=== PATIENT | female | born 1955 | race Caucasian/White ===

== ENCOUNTER → 2016-08-10 | Day surgery (SDC) | payer BC ==
[2016-08-09 08:40] VITALS: BMI 19.0
[~2016-08-10] VITALS: Ht 154.9 cm; Wt 45.5 kg
[~2016-08-10] MED LIST: ALOS1TAB PO; ASPITAB67 PO; BISM262C5 PO; BUDE1TAB PO; CALC600T9 PO; CHOL100010 PO; COLE1TAB PO; CYCL0.052 OPB; DIPH-416 PO; FSMD/70 PO; IMD/2 PO; METH1TAB81 PO; MULT-506 PO; SALI1SPR3 NAE; SYN100 PO
[2016-08-10 11:58] VITALS: Ht 154.9 cm; Wt 45.5 kg
[2016-08-10 14:59] VITALS: BP 170/99; PULSE 77; TEMP 36.6; O2SAT 98
--- NOTE | 2016-08-13 16:31 | OPERATIVE REPORT ---
DATE OF OPERATION: 08/10/2016 PROCEDURE: Hydrogen breath test for small bowel bacterial overgrowth. INDICATION: Weight loss and possible small bowel bacterial overgrowth. DESCRIPTION OF PROCEDURE: The patient was brought to medical treatment unit where she was given 10 grams of lactulose. The patient had a baseline hydrogen level which was elevated at 42. Hydrogen levels were performed at 20 minute intervals for 3 hours. Her hydrogen levels went up steadily and peaked at 160 minutes at 156, at 180 minutes they were starting to decline at 139, this is a significant elevation over baseline and in combination with the elevated baseline is indicative of small bowel bacterial overgrowth. IMPRESSION: Positive hydrogen breath test for small bowel bacterial overgrowth. I attest to the content of the Intraoperative Record and any orders documented therein. Any exceptio ns are noted below.
== END | disposition home or self-care (01) ==
LOC: C.GI 11:25
PROVIDERS: ATTEND Internal Medicine Gastroenterology
DX: R63.4 Abnormal weight loss (principal); R19.8 Other specified symptoms and signs involving the digestive system and abdomen

== ENCOUNTER → 2016-11-15 | Outpatient (CLI) | payer BC ==
[~2016-11-15] MED LIST changes: -ALOS1TAB PO; +ALOS1TAB15 PO
== END | disposition home or self-care (01) ==
LOC: C.PAPS 16:40
PROVIDERS: ATTEND Obstetrics & Gynecology
DX: Z01.419 Encounter for gynecological examination (general) (routine) without abnormal findings (principal)

== ENCOUNTER → 2017-02-04 | Outpatient (CLI) | payer BC ==
[~2017-02-04] MED LIST changes: +ALOS1TAB PO; -ALOS1TAB15 PO
--- NOTE | 2017-02-07 14:45 | MAMMOGRAPHY REPORT ---
BILATERAL DIGITAL SCREENING MAMMOGRAM TOMOSYNTHESIS WITH CAD: 02/04/2017 CLINICAL HISTORY: Routine screening. TECHNIQUE: Breast tomosynthesis in addition to standard 2D mammography was performed. Current study was also evaluated with a Computer Aided Detection (CAD) system. COMPARISON: Comparison is made to exams dated: 01/28/2016 mammogram, 01/21/2015 mammogram, 01/15/2014 mammogram, 01/05/2013 mammogram, and 11/24/2011 mammogram - [facility]. BREAST COMPOSITION: The tissue of both breasts is heterogeneously dense, which may obscure small mas ses. FINDINGS: No suspicious masses, calcifications, or areas of architectural distortion are noted in ei ther breast. There has been no significant interval change compared to prior exams. IMPRESSION: ACR BI-RADS CATEGORY 1: NEGATIVE There is no mammographic evidence of malignancy. A 1 year screening mammogram is recommended. The pa tient will receive written notification of the results. Approximately 10% of breast cancers are not detected with mammography. A negative mammographic report should not delay biopsy if a clinically suggestive mass is present. Aminata Paz M.D. ah/:02/04/2017 16:31:32 Data Communications Technician: Tony HAYNES(R)(M), [facility] letter sent: Normal 1/2 BI-RADS Code: ACR BI-RADS Category 1: Negative
== END | disposition home or self-care (01) ==
LOC: C.MAMM 15:41
PROVIDERS: ATTEND Family Medicine
DX: Z12.31 Encounter for screening mammogram for malignant neoplasm of breast (principal)

== ENCOUNTER 2020-09-17 21:30 | Inpatient (IN) ==
[2020-09-17 23:10] LABS: Hemoglobin 11.8 g/dL (12.0-16.0); Mean Corpuscular Hemoglobin 30.4 pg (25-34); Mean Corpuscular Hgb Conc 31.9 g/dL (32-36); Mean Corpuscular Volume 95.4 fL (80-100); Mean Platelet Volume 9.5 fL (7.4-10.4); Platelet Count 350 K/uL (130-400); RDW Coefficient of Variation 13.6 % (11.5-14.5); RDW Standard Deviation 47.2 fL (36.4-46.3); Red Blood Count 3.88 M/uL (4.2-5.4); White Blood Count 10.18 K/uL (4.8-10.8)
[2020-09-17 23:26] LABS: INR 0.9 (0.9-1.1); Partial Thromboplastin Ratio 0.8; Partial Thromboplastin Time 20.8 Seconds (21.0-31.0); Prothrombin Time 9.6 Seconds (9.0-12.0)
[2020-09-17 23:29] LABS: Alanine Aminotransferase 23 U/L (12-78); Albumin Level 3.2 gm/dl (3.4-5.0); Aspartate Aminotransferase 19 U/L (15-37); BUN Creatinine Ratio 23.3 (10-20); Blood Urea Nitrogen 16 mg/dl (7-18); C Reactive Protein < 0.29 mg/dl (0-0.29); Calcium 9.1 mg/dl (8.5-10.1); Carbon Dioxide 29 mmol/L (21-32); Chloride 111 mmol/L (98-107); Creatinine Clr Calc Pharmacy 63.1 ml/min; Est GFR (African American) 107.1 ml/min; Est GFR (Non-African American) 92.4 ml/min; Glucose 86 mg/dl (70-99); Magnesium 2.4 mg/dl (1.8-2.4); Potassium 3.7 mmol/L (3.5-5.1); Sodium 143 mmol/L (136-145)
[2020-09-17 23:33] LABS: Albumin Globulin Ratio 1.1 (0.9-2); Alkaline Phosphatase 44 U/L (45-117); Bilirubin,Total 0.2 mg/dl (0.2-1); NT Pro B Type Natriuretic Pept 84 pg/ml (0-900); Total Protein 6.2 gm/dl (6.4-8.2)
[2020-09-17 23:53] LABS: ALC (manual) 2.47 K/uL (1.2-3.4); ANC (manual) 7.27 K/uL (1.4-6.5); Lymphocytes # (manual) 2.47 K/uL (1.2-3.4); Lymphocytes % (manual) 24.3 %; Monocytes # (manual) 0.44 K/uL (0.11-0.59); Monocytes % (manual) 4.3 %; Neutrophils # (manual) 7.27 K/uL (1.4-6.5); Neutrophils % (manual) 71.4 %; RBC Morphology Unremarkable
[2020-09-18 00:44] LABS: Troponin I < 0.015 ng/ml (0-0.045)
[2020-09-18] MEDS ORDERED: cefTRIAXone SODIUM 2,000 MG/70 ML BAG IV STA (00:58)
[2020-09-18] MEDS ORDERED: DOXYCYCLINE HYCLATE 100 MG in DEXTROSE 5% 100 ML IV STA (01:23)
[2020-09-18 01:46] LABS: Appearance Urine Clear (Clear); Bilirubin Urine Negative (Negative); Blood Urine Negative (Negative); Color Urine Yellow; Glucose Urine UA Negative (Negative); Ketones Urine Negative (Negative); Leukocyte Esterase Urine Negative (Negative); Nitrite Urine Negative (Negative); Protein Urine Negative (Negative); Specific Gravity Urine 1.005 (1.000-1.030); Urobilinogen Urine Negative (Negative); pH Urine 6.5 (4.5-7.5)
--- NOTE | 2020-09-18 01:54 | Emergency Department Note ---
Impression & Plan Cellulitis of both lower extremities, Vasculitis, Lymphedema, Deep venous thrombosis (DVT) of right peroneal vein ED Provider Note NAME: KASSANDRA ALBERTO AGE: 65 SEX: F ARRIVES VIA: Walk-In INFORMANT: Patient, ED PROVIDER(S): Jani Andrews MD CHIEF COMPLAINT: Leg swelling, pain. PLAN: Disposition: Admit MEDICAL DECISION MAKING: The patient is a pleasant 65-year-old woman with a past medical history of vasculitis, Sjogren's syndrome, hypothyroidism, polyarthritis, lymphedema who presents to the emergency department with worsening bilateral lower extremity edema, redness and pain over the past couple of weeks where she was concerned that may be a flare of her vasculitis and so she reports contacting her customer pricing manager to increased her steroids but now continues to have worsening pain and swelling. She has any fevers, chills, cough, congestion, GI or symptoms. She reports she has been managing a chronic wound with the wound clinic which does appear better than it has in the past but the redness and pain has been worsening. On arrival patient is no acute distress, afebrile stable vital signs. She has 2+ bilateral lower extremity pitting edema with erythema, warmth and tenderness bilaterally. She does have palpable pedal pulses. There is a right lateral pretibial wound without any active discharge. EKG without overt acute ischemia. CXR without acute cardiopulmonary process per my preliminary review. WBC within normal limits. H/H 11.8/37 without prior values for comparison. Platelets within normal limits. ESR and CRP are not elevated. History without metabolic acidosis. LFTs are unremarkable. Upon negative/undetectable. BNP within normal limits. Procalcitonin is not elevated. UA without convincing evidence of infection. COVID-19 PCR was negative. Bilateral lower extremity ultrasound was performed and per preliminary stat rad report shows occlusive thrombus of the right peroneal vein. The patient's symptoms are bilateral with erythema edema and pain suspect symptoms likely related to cellulitis at this time. Given no elevation in inflammatory markers unclear if flare of vasculitis is involved. Given the patient is on chronic steroids and with degree of immunosuppression, reasonable to admit the patient for IV antibiotics. CTX ordered. Patient is in agreement with this plan. Case was discussed with Dr. Bill, [facility] hospitalist, who will evaluate the patient for admission. Anticoagulation per admitting team. Triage Nursing notes reviewed and agree them. Prior medical records reviewed Vital Signs: reviewed and remarkable for no significant abnormalities Differential diagnosis: Cellulitis, abscess, MRSA infection, DVT, necrotizing fasciitis, dermatitis, drug eruption, allergic reaction, as well as other pathologies. ER treatment provided: See below. Diagnostics interpreted by me: ECG: NSR, 81 bpm, no ectopy, no overt ST elevation or depression. Cardiac Monitoring: An order for continuous cardiac monitoring was placed and demonstrated NSR, 81 bpm, no ectopy. Laboratory studies: See below Imaging studies: See below CXR: No acute cardiopulmonary process per my preliminary review. [facility] Preliminary Findings Only See Final Report For Complete Findings US VENOUS BILATERAL LOWER EXTREMITIES: Occlusive deep vein thrombosis of the right peroneal vein. No deep thrombosis of the left lower extremity. Radiologist: Faye Malagon MD Study ready at 00:07 and initial results transmitted at 00:15 Consultation(s): Case was discussed with Dr. Bill, [facility] hospitalist, who will evaluate the patient for admission. HPI: The patient is a pleasant 65-year-old woman with a past medical history of vasculitis, Sjogren's syndrome, hypothyroidism, polyarthritis, lymphedema who presents to the emergency department with worsening bilateral lower extremity edema, redness and pain over the past couple of weeks where she was concerned that may be a flare of her vasculitis and so she reports contacting her customer pricing manager to increased her steroids but now continues to have worsening pain and swelling. She has any fevers, chills, cough, congestion, GI or symptoms. She reports she has been managing a chronic wound with the wound clinic which does appear better than it has in the past but the redness and pain has been worsening. ROS: See above HPI for pertinent positives & negatives. A total of 10 systems reviewed and were otherwise negative. PAST MEDICAL HISTORY:See Below PAST SURGICAL HISTORY:See Below FAMILY HISTORY:See Below SOCIAL HISTORY:See Below HOME MEDICATIONS:See Below ALLERGIES:See Below VITALS:See Below PHYSICAL EXAMINATION: GENERAL: Awake, alert, fatigued-appearing, in no distress HENT: Normocephalic, atraumatic. Oropharynx with dry mucous membranes and otherwise unremarkable. EYES: Normal conjunctiva. Sclera non-icteric. NECK: Supple. No nuchal rigidity. FROM. No JVD. RESPIRATORY: Clear to auscultation. CARDIAC: Regular rate, normal rhythm. Extremities warm and well perfused. Pulses equal. ABDOMEN: Soft, non-distended. No tenderness to palpation. No rebound or guarding. No masses. RECTAL: Deferred. MUSCULOSKELETAL: Chest examination reveals no tenderness. The back is sym metrical on inspection without obvious abnormality. There is no CVA tenderness to palpation. No joint edema. LOWER EXTREMITIES: 2+ bilateral lower extremity pitting edema with erythema, warmth and tenderness bilaterally. She does have palpable pedal pulses. There is a right lateral pretibial wound without any active discharge. NEURO: Normal sensorium. No sensory or motor deficits noted. SKIN: No rash or jaundice noted. Jani Andrews MD Past Med/Surg History Medical History Colitis Hypothyroidism Migraine headache Osteopenia Polyarthritis Sjogrens syndrome Vasculitis Surgical History H/O detached retina repair History of laparoscopy Hx of cataract surgery both eyes Hx of dilation and curettage Hx of wisdom tooth extraction Family History Mother Rheumatic heart disease Bacterial endocarditis Father Gout Social History Smoking Status: Former smoker Second Hand Exposure: No; Do You Dip or Chew Tobacco: No; Tobacco Cessation Education Requested by Patient: No Hx Alcohol Use: No Hx Substance Use: No Preferred Language: Palestinian Communication Ability: Effective Lube Attendant Required: No Beliefs That Will Affect Care: None Current Living Situation: Spouse Current Living Situation Comment: Lives at home with Other Information That Helps Us Care for You: No Feels Safe at Home: Yes Safety Concerns: Feels Safe At This Time Assistive Devices: Glasses Assistive Devices Comment: glasses are at home Allergies Allergies Allergy/AdvReac Type Severity Reaction Status Date / Time amoxicillin [From Augmentin] AdvReac Intermediate Vomiting Verified 09/18/20 04 :38 clavulanic acid AdvReac Intermediate Vomiting Verified 09/18/20 04:38 [From Augmentin] sulfamethoxazole AdvReac Intermediate NAUSEA/VOMI Verified 09/18/20 04:38 TING trimethoprim AdvReac Intermediate NAUSEA/VOMI Verified 09/18/20 04:38 TING cephalexin [From Keflex] AdvReac Mild Nausea Verified 09/18/20 04:38 Home Meds Home Medications Medication Instructions Recorded Confirmed cholecalciferol (vitamin D3) 25 1,000 units PO DAILY 11/16/17 09/17/20 mcg (1,000 unit) capsule cyclosporine 0.05 % eye drops 1 drops OP Q12H 11/16/17 09/17/20 alosetron 1 mg tablet 1 mg PO BID tab 11/13/18 09/17/20 edtzzvb-mijjqzodcsalp-apogljwy 250 2 tab PO Q6H PRN 11/13/18 09/17/20 mg-250 mg-65 mg tablet methylprednisolone 4 mg tablet 4 mg PO DAILY tab 11/13/18 09/17/20 budesonide 9 mg tablet,delayed and 9 mg PO DAILY 11/22/18 09/17/20 extended release calcium carbonate 600 mg (1,500 1 tab PO BID tab 11/22/18 09/17/20 mg)-vitamin D3 200 unit tablet diphenoxylate-atropine 2.5 1 tab PO TID PRN tab 11/22/18 09/17/20 mg-0.025 mg tablet colestipol 1 gram tablet 1 gm PO TID tab 12/22/18 09/17/20 denosumab 60 mg/mL subcutaneous 60 mg SQ .COMPLEX ml 12/22/18 09/17/20 syringe loperamide 2 mg capsule 2 mg PO BID cap 12/22/18 09/17/20 lisinopril 20 mg tablet 20 mg PO DAILY 04/10/20 09/17/20 bismuth subsalicylate 262 mg tablet 2 tab PO BID tab 07/01/20 09/17/20 simethicone 125 mg capsule 125 mg PO DIRECTED PRN cap 07/01/20 09/17/20 ascorbic acid (vitamin C) [Vitamin 0 mg PO DAILY 09/17/20 09/17/20 C] vitamin A 0 unit PO DAILY 09/17/20 09/17/20 zinc 0 mg PO DAILY 09/17/20 09/17/20 Previous Rx's Medication Instructions Recorded Synthroid 75 mcg tablet 75 mcg PO .COMPLEX #30 tab NS 07/23/20 Results & Data (ED) Vital Signs Vital Signs - 24 hr 09/17/20 21:31 09/17/20 22:13 09/17/20 22:27 Temperature 36.3 C L Temperature Source Temporal Artery Scan Pulse Rate 106 H 85 85 Pulse Rate from SpO2 Sensor 90 87 Respiratory Rate 18 20 18 Respiratory Effort / Characteristics Non-Labored Respiratory Depth Normal Blood Pressure 169/89 H 156/86 H Blood Pressure Mean 115 109 Pulse Oximetry 98 99 100 Oxygen Delivery Method Sepsis Recent Fever Within 48 Hours No Sepsis New/Unexplained Change in Mental Status No Sepsis Action Taken by Nursing No Action Required 09/17/20 22:30 09/17/20 22:48 09/17/20 23:00 Temperature Temperature Source Pulse Rate 82 88 Pulse Rate from SpO2 Sensor 83 Respiratory Rate 21 21 Respiratory Effort / Characteristics Non-Labored Respiratory Depth Blood Pressure 149/89 H 150/84 H Blood Pressure Mean 109 106 Pulse Oximetry 98 Oxygen Delivery Method Room Air Sepsis Recent Fever Within 48 Hours Sepsis New/Unexplained Change in Mental Status Sepsis Action Taken by Nursing 09/17/20 23:54 09/18/20 00:00 09/18/20 00:30 Temperature Temperature Source Pulse Rate 81 77 74 Pulse Rate from SpO2 Sensor Respiratory Rate 18 23 15 Respiratory Effort / Characteristics Respiratory Depth Blood Pressure 130/87 126/85 Blood Pressure Mean 101 98 Pulse Oximetry Oxygen Delivery Method Sepsis Recent Fever Within 48 Hours Sepsis New/Unexplained Change in Mental Status Sepsis Action Taken by Nursing 09/18/20 01:00 09/18/20 01:42 09/18/20 02:00 Temperature Temperature Source Pulse Rate 73 73 77 Pulse Rate from SpO2 Sensor 72 75 Respiratory Rate 24 15 21 Respiratory Effort / Characteristics Respiratory Depth Blood Pressure 132/81 175/94 H 157/97 H Blood Pressure Mean 98 121 117 Pulse Oximetry 100 99 Oxygen Delivery Method Sepsis Recent Fever Within 48 Hours Sepsis New/Unexplained Change in Mental Status Sepsis Action Taken by Nursing Laboratory Data Attestation: I reviewed the patient's lab results. Result diagrams: 09/17/20 22:59 09/17/20 22:59 Lab Results 09/17/20 09/17/20 09/17/20 Range/Units 22:59 22:59 22:59 WBC 10.18 (4.8-10.8) K/uL RBC 3.88 L (4.2-5.4) M/uL Hgb 11.8 L (12.0-16.0) g/dL Hct 37.0 (37-47) % MCV 95.4 (80-100) fL MCH 30.4 (25-34) pg MCHC 31.9 L (32-36) g/dL RDW Std Deviation 47.2 H (36.4-46.3) fL RDW Coeff of Jovany 13.6 (11.5-14.5) % Plt Count 350 (130-400) K/uL MPV 9.5 (7.4-10.4) fL Neutrophils % (Manual) 71.4 % Lymphocytes % (Manual) 24.3 % Monocytes % (Manual) 4.3 % Neutrophils # (Manual) 7.27 H (1.4-6.5) K/uL Total Absolute Neuts 7.27 H (1.4-6.5) K/uL Lymphocytes # (Manual) 2.47 (1.2-3.4) K/uL Total Abs Lymphocytes 2.47 (1.2-3.4) K/uL Monocytes # (Manual) 0.44 (0.11-0.59) K/uL RBC Morphology Unremarkable ESR 8 (0-30) mm/hr PT 9.6 (9.0-12.0) Seconds INR 0.9 (0.9-1.1) APTT 20.8 L (21.0-31.0) Seconds PTT Ratio 0.8 Sodium (136-145) mmol/L Potassium (3.5-5.1) mmol/L Chloride (98-107) mmol/L Carbon Dioxide (21-32) mmol/L Anion Gap (3-11) BUN (7-18) mg/dl Creatinine (0.6-1.2) mg/dl Est Cr Clr Drug Dosing ml/min Est GFR ( Amer) ml/min Est GFR (Non-Af Amer) ml/min BUN/Creatinine Ratio (10-20) Glucose (70-99) mg/dl Lactate (0.4-2.0) mmol/L Calcium (8.5-10.1) mg/dl Magnesium (1.8-2.4) mg/dl Total Bilirubin (0.2-1) mg/dl AST (15-37) U/L ALT (12-78) U/L Alkaline Phosphatase (45-117) U/L Troponin I (0-0.045) ng/ml C-Reactive Protein (0-0.29) mg/dl NT-Pro-B Natriuret Pep (0-900) pg/ml Total Protein (6.4-8.2) gm/dl Albumin (3.4-5.0) gm/dl Globulin (2.5-4.0) gm/dl Albumin/Globulin Ratio (0.9-2) Procalcitonin (0-0.5) ng/ml TSH (0.300-4.500) uIu/ml Urine Color Urine Appearance (Clear) Urine pH (4.5-7.5) Ur Specific [place] (1.000-1.030) Urine Protein (Negative) Urine Glucose (UA) (Negative) Urine Ketones (Negative) Urine Blood (Negative) Urine Nitrite (Negative) Urine Bilirubin (Negative) Urine Urobilinogen (Negative) Ur Leukocyte Esterase (Negative) COVID-19 Eval Order SARS-CoV-2 (PCR) (Negative) 09/17/20 09/17/20 09/17/20 Range/Units 22:59 22:59 22:59 WBC (4.8-10.8) K/uL RBC (4.2-5.4) M/uL Hgb (12.0-16.0) g/dL Hct (37-47) % MCV (80-100) fL MCH (25-34) pg MCHC (32-36) g/dL RDW Std Deviation (36.4-46.3) fL RDW Coeff of Jovany (11.5-14.5) % Plt Count (130-400) K/uL MPV (7.4-10.4) fL Neutrophils % (Manual) % Lymphocytes % (Manual) % Monocytes % (Manual) % Neutrophils # (Manual) (1.4-6.5) K/uL Total Absolute Neuts (1.4-6.5) K/uL Lymphocytes # (Manual) (1.2-3.4) K/uL Total Abs Lymphocytes (1.2-3.4) K/uL Monocytes # (Manual) (0.11-0.59) K/uL RBC Morphology ESR (0-30) mm/hr PT (9.0-12.0) Seconds INR (0.9-1.1) APTT (21.0-31.0) Seconds PTT Ratio Sodium 143 (136-145) mmol/L Potassium 3.7 (3.5-5.1) mmol/L Chloride 111 H (98-107) mmol/L Carbon Dioxide 29 (21-32) mmol/L Anion Gap 3.0 (3-11) BUN 16 (7-18) mg/dl Creatinine 0.68 (0.6-1.2) mg/dl Est Cr Clr Drug Dosing 63.1 ml/min Est GFR ( Amer) 107.1 ml/min Est GFR (Non-Af Amer) 92.4 ml/min BUN/Creatinine Ratio 23.3 H (10-20) Glucose 86 (70-99) mg/dl Lactate 1.5 (0.4-2.0) mmol/L Calcium 9.1 (8.5-10.1) mg/dl Magnesium 2.4 (1.8-2.4) mg/dl Total Bilirubin 0.2 (0.2-1) mg/dl AST 19 (15-37) U/L ALT 23 (12-78) U/L Alkaline Phosphatase 44 L (45-117) U/L Troponin I < 0.015 (0-0.045) ng/ml C-Reactive Protein < 0.29 (0-0.29) mg/dl NT-Pro-B Natriuret Pep 84 (0-900) pg/ml Total Protein 6.2 L (6.4-8.2) gm/dl Albumin 3.2 L (3.4-5.0) gm/dl Globulin 3.0 (2.5-4.0) gm/dl Albumin/Globulin Ratio 1.1 (0.9-2) Procalcitonin < 0.05 (0-0.5) ng/ml TSH 1.280 (0.300-4.500) uIu/ml Urine Color Urine Appearance (Clear) Urine pH (4.5-7.5) Ur Specific [place] (1.000-1.030) Urine Protein (Negative) Urine Glucose (UA) (Negative) Urine Ketones (Negative) Urine Blood (Negative) Urine Nitrite (Negative) Urine Bilirubin (Negative) Urine Urobilinogen (Negative) Ur Leukocyte Esterase (Negative) COVID-19 Eval Order SARS-CoV-2 (PCR) (Negative) 09/17/20 09/17/20 09/18/20 Range/Units 23:10 23:10 01:35 WBC (4.8-10.8) K/uL RBC (4.2-5.4) M/uL Hgb (12.0-16.0) g/dL Hct (37-47) % MCV (80-100) fL MCH (25-34) pg MCHC (32-36) g/dL RDW Std Deviation (36.4-46.3) fL RDW Coeff of Jovany (11.5-14.5) % Plt Count (130-400) K/uL MPV (7.4-10.4) fL Neutrophils % (Manual) % Lymphocytes % (Manual) % Monocytes % (Manual) % Neutrophils # (Manual) (1.4-6.5) K/uL Total Absolute Neuts (1.4-6.5) K/uL Lymphocytes # (Manual) (1.2-3.4) K/uL Total Abs Lymphocytes (1.2-3.4) K/uL Monocytes # (Manual) (0.11-0.59) K/uL RBC Morphology ESR (0-30) mm/hr PT (9.0-12.0) Seconds INR (0.9-1.1) APTT (21.0-31.0) Seconds PTT Ratio Sodium (136-145) mmol/L Potassium (3.5-5.1) mmol/L Chloride (98-107) mmol/L Carbon Dioxide (21-32) mmol/L Anion Gap (3-11) BUN (7-18) mg/dl Creatinine (0.6-1.2) mg/dl Est Cr Clr Drug Dosing ml/min Est GFR ( Amer) ml/min Est GFR (Non-Af Amer) ml/min BUN/Creatinine Ratio (10-20) Glucose (70-99) mg/dl Lactate (0.4-2.0) mmol/L Calcium (8.5-10.1) mg/dl Magnesium (1.8-2.4) mg/dl Total Bilirubin (0.2-1) mg/dl AST (15-37) U/L ALT (12-78) U/L Alkaline Phosphatase (45-117) U/L Troponin I (0-0.045) ng/ml C-Reactive Protein (0-0.29) mg/dl NT-Pro-B Natriuret Pep (0-900) pg/ml Total Protein (6.4-8.2) gm/dl Albumin (3.4-5.0) gm/dl Globulin (2.5-4.0) gm/dl Albumin/Globulin Ratio (0.9-2) Procalcitonin (0-0.5) ng/ml TSH (0.300-4.500) uIu/ml Urine Color Yellow Urine Appearance Clear (Clear) Urine pH 6.5 (4.5-7.5) Ur Specific [place] 1.005 (1.000-1.030) Urine Protein Negative (Negative) Urine Glucose (UA) Negative (Negative) Urine Ketones Negative (Negative) Urine Blood Negative (Negative) Urine Nitrite Negative (Negative) Urine Bilirubin Negative (Negative) Urine Urobilinogen Negative (Negative) Ur Leukocyte Esterase Negative (Negative) COVID-19 Eval Order Covid19 at [facility] SARS-CoV-2 (PCR) NEGATIVE (Negative) Administered Medications Discontinued Medications Enoxaparin Sodium (Enoxaparin Inj 60 Mg/0.6 Ml Syr) 50 mg SQ NOW STA Stop: 09/18/20 02:17 Last Admin: 09/18/20 02:39 Dose: 50 mg Documented by: [id number] Ceftriaxone Sodium (Rocephin) 2,000 mg in 70 mls @ 140 mls/hr IV NOW STA Stop: 09/18/20 01:27 Last Admin: 09/18/20 02:39 Dose: Not Given Documented by: [id number] Doxycycline Hyclate 100 mg/ (Dextrose) 110 mls @ 50 mls/hr IV NOW STA Stop: 09/18/20 03:34 Last Infusion: 09/18/20 04:00 Dose: 0 mls/hr Documented by: [id number] Admin: 09/18/20 01:40 Dose: 50 mls/hr Documented by: [id number] Lisinopril (Lisinopril 20 Mg Tab) 20 mg PO NOW STA Stop: 09/18/20 02:08 Last Admin: 09/18/20 02:43 Dose: 20 mg Documented by: [id number] Discharge Plan Visit Data Chief Complaint: Swelling/Edema to Extremity Stated Complaint: SWELLING IN BOTH LEGS, SWOLLEN ANKLE RIGHT ED Provider: Jani Andrews Discharge Problem: Cellulitis of both lower extremities, Vasculitis, Lymphedema, Deep venous thrombosis (DVT) of right peroneal vein Patient Disposition: Admitted As Inpatient Discharge Instructions Interventions: ED Discharge Assessment Last Done: 09/18/20 02:55 Discharge Problem: Deep venous thrombosis (DVT) of right peroneal vein Qualifiers: Chronicity: acute Qualified Code(s): I82.451 - Acute embolism and thrombosis of right peroneal vein
[2020-09-18] MEDS ORDERED: lisinopril 20 MG TAB PO STA (02:07)
--- NOTE | 2020-09-18 02:09 | History & Physical Report ---
Date of Service September 18, 2020 Assessment & Plan (1) Localized swelling of both lower legs: Right greater than the left Multifactorial : RLE DVT, first occurrence, possibly related to decreased mobility from traumatic right leg injury February 2020 Cellulitis, immunocompromised patient, vasculitis/Sjogren's syndrome on chronic steroid Rx, no sepsis for now ? Fluid retention from steroid Rx hypertension, slight elevated hypothyroidism, euthyroid as of today's TSH chronic anemia, hemoglobin at baseline past tobacco abuse OBS GMF Weight-based Lovenox Defer discussion regarding home anticoagulation option between patient and AM provider. Patient expressed interest in NOAC therapy. Doxycycline Lasix 1 dose now Wound care follow-up evaluation RLE wound (Patient had a scheduled follow-up appointment this week.) DVT prophylaxis. Lovenox Full code Text document was generated using [email or web address] voice recognition software. It may contain grammatical or spelling errors. Kindly contact undersigned for clarification of any documentation item in question. History of Present Illness Chief Complaint: Bilateral leg swelling Primary Care Provider: Alexx Sepulveda DO History obtained from patient, family, and records. Medical history significant for hypertension, hypothyroidism, vasculitis, Sjogren's syndrome on chronic steroid Rx, collagenous colitis as per records, chronic anemia (baseline hemoglobin of 11), traumatic RLE wound, past tobacco abuse. Last confinement 2011 for sepsis secondary to community-acquired pneumonia. Patient sustained traumatic wound on right lower leg after hitting a cardboard box last February,. Decreased mobility since injury as per patient. Periodic outpatient visits at the wound care center. Slowly RLE wound healing as per patient and . 2 weeks ago, patient noted bilateral leg swelling right greater than the left without fever/chills/chest pain/S OB. Patient not sure about the weight gain. Wound care center provider concerns about vasculitis relapse during last visit last week. 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 Worsening leg swelling and pain noted yesterday by patient. Patient brought to the ER by for evaluation. Medical History as above Surgical History : Laser brachioplasty, laparoscopic abdominal tumor removal, cataract surgeries Family History : Heart disease, kidney stones Personal/Social history : Past tobacco abuse, no EtOH intake, office work Allergies Allergy/AdvReac Type Severity Reaction Status Date / Time amoxicillin [From Augmentin] AdvReac Intermediate Vomiting Verified 09/18/20 04:38 clavulanic acid AdvReac Intermediate Vomiting Verified 09/18/20 04:38 [From Augmentin] sulfamethoxazole AdvReac Intermediate NAUSEA/VOMI Verified 09/18/20 04:38 TING trimethoprim AdvReac Intermediate NAUSEA/VOMI Verified 09/18/20 04:38 TING cephalexin [From Keflex] AdvReac Mild Nausea Verified 09/18/20 04:38 Home Medications Medication Instructions Recorded Confirmed Type cholecalciferol (vitamin D3) 25 1,000 units PO DAILY 11/16/17 09/17/20 History mcg (1,000 unit) capsule cyclosporine 0.05 % eye drops 1 drops OP Q12H 11/16/17 09/17/20 History alosetron 1 mg tablet 1 mg PO BID tab 11/13/18 09/17/20 History vvuzpxq-zoscpdutbgweu-gqfmgjaz 250 2 tab PO Q6H PRN 11/13/18 09/17/20 History mg-250 mg-65 mg tablet methylprednisolone 4 mg tablet 4 mg PO DAILY tab 11/13/18 09/17/20 History budesonide 9 mg tablet,delayed and 9 mg PO DAILY 11/22/18 09/17/20 History extended release calcium carbonate 600 mg (1,500 1 tab PO BID tab 11/22/18 09/17/20 History mg)-vitamin D3 200 unit tablet diphenoxylate-atropine 2.5 1 tab PO TID PRN tab 11/22/18 09/17/20 History mg-0.025 mg tablet colestipol 1 gram tablet 1 gm PO TID tab 12/22/18 09/17/20 History denosumab 60 mg/mL subcutaneous 60 mg SQ .COMPLEX ml 12/22/18 09/17/20 History syringe loperamide 2 mg capsule 2 mg PO BID cap 12/22/18 09/17/20 History lisinopril 20 mg tablet 20 mg PO DAILY 04/10/20 09/17/20 History bismuth subsalicylate 262 mg tablet 2 tab PO BID tab 07/01/20 09/17/20 History simethicone 125 mg capsule 125 mg PO DIRECTED PRN cap 07/01/20 09/17/20 History Synthroid 75 mcg tablet 75 mcg PO .COMPLEX #30 tab NS 07/23/20 09/17/20 Rx ascorbic acid (vitamin C) [Vitamin 0 mg PO DAILY 09/17/20 09/17/20 History C] vitamin A 0 unit PO DAILY 09/17/20 09/17/20 History zinc 0 mg PO DAILY 09/17/20 09/17/20 History Past Med/Surg History Medical History Colitis Hypothyroidism Migraine headache Osteopenia Polyarthritis Sjogrens syndrome Vasculitis Surgical History H/O detached retina repair History of laparoscopy Hx of cataract surgery both eyes Hx of dilation and curettage Hx of wisdom tooth extraction Family History Mother Rheumatic heart disease Bacterial endocarditis Father Gout Social History Smoking Status: Former smoker Second Hand Exposure: No; Do You Dip or Chew Tobacco: No; Tobacco Cessation Education Requested by Patient: No Hx Alcohol Use: No Hx Substance Use: No Preferred Language: Beninese Communication Ability: Effective Prune Washer Required: No Beliefs That Will Affect Care: None Current Living Situation: Spouse Current Living Situation Comment: Lives at home with Other Information That Helps Us Care for You: No Feels Safe at Home: Yes Safety Concerns: Feels Safe At This Time Assistive Devices: Glasses Assistive Devices Comment: glasses are at home Review of Systems Review of Systems: As per HPI, all 10 systems reviewed, all other ROS negative Physical Exam Physical Exam: GENERAL: Comfortable, pleasant, no respiratory distress SKIN: Normal color, warm HEENT: [place] palpebral conjunctivae, no ptosis, dry buccal mucosa NECK : Supple, no tenderness CHEST : CTA, no tenderness HEART : RRR, no obvious murmurs ABDOMEN: Some distention, nontender EXTREMITIES : Bilateral LE swelling/tenderness, LLE more erythematous than RLE, dressing RLE, no other conspicuous deformities noted NEUROLOGIC : Coherent, no facial asymmetry, no other gross focality Results & Data Results & Data ([facility]) Vital Signs (Past 12 Hours) Vital Signs Temp Pulse Resp BP Pulse Ox 09/18/20 00:00 77 23 130/87 09/17/20 23:54 81 18 09/17/20 23:00 88 21 150/84 H 09/17/20 22:30 82 21 149/89 H 98 09/17/20 22:27 85 18 100 09/17/20 22:13 85 20 156/86 H 99 09/17/20 21:31 36.3 C L 106 H 18 169/89 H 98 Laboratory Results Laboratory Results WBC 10.18 K/uL (4.8-10.8) 09/17/20 22:59 RBC 3.88 M/uL (4.2-5.4) L 09/17/20 22:59 Hgb 11.8 g/dL (12.0-16.0) L 09/17/20 22:59 Hct 37.0 % (37-47) 09/17/20 22:59 MCV 95.4 fL (80-100) 09/17/20 22:59 MCH 30.4 pg (25-34) 09/17/20 22:59 MCHC 31.9 g/dL (32-36) L 09/17/20 22:59 RDW Std Deviation 47.2 fL (36.4-46.3) H 09/17/20 22:59 RDW Coeff of Jovany 13.6 % (11.5-14.5) 09/17/20 22:59 Plt Count 350 K/uL (130-400) 09/17/20 22:59 MPV 9.5 fL (7.4-10.4) 09/17/20 22:59 Neutrophils % (Manual) 71.4 % 09/17/20 22:59 Lymphocytes % (Manual) 24.3 % 09/17/20 22:59 Monocytes % (Manual) 4.3 % 09/17/20 22:59 Neutrophils # (Manual) 7.27 K/uL (1.4-6.5) H 09/17/20 22:59 Total Absolute Neuts 7.27 K/uL (1.4-6.5) H 09/17/20 22:59 Lymphocytes # (Manual) 2.47 K/uL (1.2-3.4) 09/17/20 22:59 Total Abs Lymphocytes 2.47 K/uL (1.2-3.4) 09/17/20 22:59 Monocytes # (Manual) 0.44 K/uL (0.11-0.59) 09/17/20 22:59 RBC Morphology Unremarkable 09/17/20 22:59 ESR 8 mm/hr (0-30) 09/17/20 22:59 PT 9.6 Seconds (9.0-12.0) 09/17/20 22:59 INR 0.9 (0.9-1.1) 09/17/20 22:59 APTT 20.8 Seconds (21.0-31.0) L 09/17/20 22:59 PTT Ratio 0.8 09/17/20 22:59 Sodium 143 mmol/L (136-145) 09/17/20 22:59 Potassium 3.7 mmol/L (3.5-5.1) 09/17/20 22:59 Chloride 111 mmol/L (98-107) H 09/17/20 22:59 Carbon Dioxide 29 mmol/L (21-32) 09/17/20 22:59 Anion Gap 3.0 (3-11) 09/17/20 22:59 BUN 16 mg/dl (7-18) 09/17/20 22:59 Creatinine 0.68 mg/dl (0.6-1.2) 09/17/20 22:59 Est Cr Clr Drug Dosing 63.1 ml/min 09/17/20 22:59 Est GFR ( Amer) 107.1 ml/min 09/17/20 22:59 Est GFR (Non-Af Amer) 92.4 ml/min 09/17/20 22:59 BUN/Creatinine Ratio 23.3 (10-20) H 09/17/20 22:59 Glucose 86 mg/dl (70-99) 09/17/20 22:59 Lactate 1.5 mmol/L (0.4-2.0) 09/17/20 22:59 Calcium 9.1 mg/dl (8.5-10.1) 09/17/20 22:59 Magnesium 2.4 mg/dl (1.8-2.4) 09/17/20 22:59 Total Bilirubin 0.2 mg/dl (0.2-1) 09/17/20 22:59 AST 19 U/L (15-37) 09/17/20 22:59 ALT 23 U/L (12-78) 09/17/20 22:59 Alkaline Phosphatase 44 U/L (45-117) L 09/17/20 22:59 Troponin I < 0.015 ng/ml (0-0.045) 09/17/20 22:59 C-Reactive Protein < 0.29 mg/dl (0-0.29) 09/17/20 22:59 NT-Pro-B Natriuret Pep 84 pg/ml (0-900) 09/17/20 22:59 Total Protein 6.2 gm/dl (6.4-8.2) L 09/17/20 22:59 Albumin 3.2 gm/dl (3.4-5.0) L 09/17/20 22:59 Globulin 3.0 gm/dl (2.5-4.0) 09/17/20 22:59 Albumin/Globulin Ratio 1.1 (0.9-2) 09/17/20 22:59 Procalcitonin < 0.05 ng/ml (0-0.5) 09/17/20 22:59 TSH 1.280 uIu/ml (0.300-4.500) 09/17/20 22:59 Urine Color Yellow 09/18/20 01:35 Urine Appearance Clear (Clear) 09/18/20 01:35 Urine pH 6.5 (4.5-7.5) 09/18/20 01:35 Ur Specific [place] 1.005 (1.000-1.030) 09/18/20 01:35 Urine Protein Negative (Negative) 09/18/20 01:35 Urine Glucose (UA) Negative (Negative) 09/18/20 01:35 Urine Ketones Negative (Negative) 09/18/20 01:35 Urine Blood Negative (Negative) 09/18/20 01:35 Urine Nitrite Negative (Negative) 09/18/20 01:35 Urine Bilirubin Negative (Negative) 09/18/20 01:35 Urine Urobilinogen Negative (Negative) 09/18/20 01:35 Ur Leukocyte Esterase Negative (Negative) 09/18/20 01:35 COVID-19 Eval Order Covid19 at [facility] 09/17/20 23:10 SARS-CoV-2 (PCR) NEGATIVE (Negative) 09/17/20 23:10 Diagnostic Findings Chest x-ray as per my interpretation no congestion LE venous Dopplers initial read: Occlusive DVT right peroneal vein. No DVT on the LLE. EKG as per my interpretation : Rate 80, NSR, normal axis, T wave abnormalities inferior and septal leads
[2020-09-18] MEDS ORDERED: ENOXAPARIN INJ 60 MG/0.6 ML SYR SQ STA (02:16)
[2020-09-18] MEDS ORDERED: traMADol HCL 50 MG TABLET PO PRN (04:30)
[2020-09-18] MEDS ORDERED: FUROSEMIDE 40 MG/4 ML VIAL IV STA (04:30)
[2020-09-18] MEDS ORDERED: DIPHENOXYLATE/ATROPINE 2.5/0.025MG TAB PO PRN (04:30)
[2020-09-18] MEDS ORDERED: PROMETHAZINE HCL 12.5 MG in SODIUM CHLORIDE 0.9% 50 ML IV PRN (04:30)
[2020-09-18] MEDS ORDERED: SIMETHICONE 80 MG CHEW PO PRN (04:40)
[2020-09-18 06:37] LABS: Hematocrit (blood only) 40.7 % (37-47); Hemoglobin 12.8 g/dL (12.0-16.0); Mean Corpuscular Hemoglobin 29.8 pg (25-34); Mean Corpuscular Hgb Conc 31.4 g/dL (32-36); Mean Corpuscular Volume 94.7 fL (80-100); Mean Platelet Volume 9.5 fL (7.4-10.4); Platelet Count 332 K/uL (130-400); RDW Coefficient of Variation 13.6 % (11.5-14.5); RDW Standard Deviation 46.8 fL (36.4-46.3)
--- NOTE | 2020-09-18 07:08 | XRay Report ---
XR chest 1V portable CLINICAL HISTORY: SEPSIS COMPARISON STUDY: 06/07/2011 FINDINGS: The heart is at the upper limits of normal in size. There is no failure. There is no focal pulmonary consolidation. There are no pleural effusions.[ IMPRESSION: No active disease in the chest. ACT 112: Negative or not required by law. Electronically signed by: James Danielson M.D. 09/18/2020 7:07 AM
[2020-09-18 07:10] LABS: Calcium 9.6 mg/dl (8.5-10.1); Creatinine Clr Calc Pharmacy 79.4 ml/min; Est GFR (African American) 115.6 ml/min; Est GFR (Non-African American) 99.7 ml/min; Potassium 3.9 mmol/L (3.5-5.1)
--- NOTE | 2020-09-18 07:11 | Ultrasound Report ---
BILATERAL LOWER EXTREMITY VENOUS DOPPLER HISTORY: Bilateral lower extremity edema. COMPARISON STUDY: None. FINDINGS: There is thrombus identified within the proximal portion of the right peroneal vein. Remain ing bilateral lower extremity deep venous structures are patent. IMPRESSION: 1. DVT identified within the proximal right peroneal vein. 2. No DVT within the left lower extremity. ACT 112: Negative or not required by law. Electronically signed by: Jin Garcia M.D. 09/18/2020 7:09 AM
[2020-09-18 07:54] LABS: ALC (manual) 2.42 K/uL (1.2-3.4); ANC (manual) 6.17 K/uL (1.4-6.5); Basophils # (manual) 0.09 K/uL (0-0.2); Basophils % (manual) 0.9 %; Lymphocytes # (manual) 2.42 K/uL (1.2-3.4); Lymphocytes % (manual) 25.2 %; Metamyelocytes # (manual) 0.16 K/uL (0-0); Metamyelocytes % (manual) 1.7 %; Monocytes # (manual) 0.67 K/uL (0.11-0.59); Myelocytes # (manual) 0.09 K/uL (0-0); Myelocytes % (manual) 0.9 %; Neutrophils # (manual) 6.17 K/uL (1.4-6.5); Neutrophils % (manual) 64.3 %; RBC Morphology Unremarkable
[2020-09-18] MEDS: RESTASIS~ORDER AWAITING ACTION SCH ×2 (08:17→16:16)
[2020-09-18] MEDS ORDERED: CHOLECALCIFEROL 1,000 UNITS 25 MCG TAB PO SCH (09:00)
[2020-09-18] MEDS ORDERED: BISMUTH SUBSALICYLATE 262 MG CHEW PO SCH ×2 (09:00→09:30)
[2020-09-18] MEDS ORDERED: methylPREDNISolone 4 MG TAB PO SCH (09:00)
[2020-09-18] MEDS ORDERED: ASCORBIC ACID 500 MG TAB PO SCH (09:00)
[2020-09-18] MEDS ORDERED: NON-FORMULARY MEDICATION (Zinc 50 mg Tablet) PO SCH (09:30)
[2020-09-18] MEDS ORDERED: NON-FORMULARY MEDICATION (Vitamin A 10,000 unit Capsule) PO SCH (09:30)
[2020-09-18] MEDS ORDERED: DIPHENOXYLATE/ATROPINE 2.5/0.025MG TAB PO SCH (09:45)
[2020-09-18] MEDS: methylPREDNISolone 4 MG TAB PO SCH (10:34)
[2020-09-18] MEDS: CALCIUM 600MG + VIT D 400 IU TAB PO SCH ×2 (10:34→17:27)
[2020-09-18] MEDS: BUDESONIDE EC 3 MG CAP PO SCH (10:35)
[2020-09-18] MEDS: ACETAMINOPHEN 325 MG TAB PO PRN ×2 (10:40→22:13)
[2020-09-18] MEDS ORDERED: LOPERAMIDE HCL 2 MG CAP PO SCH (10:45)
[2020-09-18] MEDS: COLESTIPOL HCL 1 GM TAB PO SCH ×2 (12:13→15:40)
--- NOTE | 2020-09-18 14:10 | Hospitalist Progress Note ---
Date of Service September 18, 2020 Assessment & Plan (1) Localized swelling of both lower legs: Acute deep vein thrombosis -Venous Doppler:DVT identified within the proximal right peroneal vein. No DVT within the left lower extremity. 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 Possible Cellulitis Immunocompromised patient H/O vasculitis/Sjogren's syndrome on chronic steroid therapy Blood Culture:pending Continue Doxycycline Hypertension BP Stable Continue lisinopril Hypothyroidism Continue Synthroid Chronic anemia Past tobacco abuse Hb stable Monitor DVT Px: Lovenox SQ Code Status Full Code Admission and Anticipated Discharge Date Admission Date: September 18, 2020 Subjective Patient is seen and examined at bedside States having right lower extremity pain Denies chest pain, shortness breath, dizziness, nausea, abdominal pain Also denies any bleeding issues Offers no other complaints Review of Systems Review of Systems: All systems reviewed & are unremarkable except as noted in HPI & below Physical Exam Physical Exam: Physical Exam: Vitals signs as noted above General Appearance:Moderately built and nourished, no apparent distress Head: normocephalic, Atraumatic Eyes: normal inspection, EOMI Neck: supple, Trachea midline Respiratory/Chest: Normal breath sounds, CTA Cardiovascular: S1, S2, No murmur Abdomen/GI:Soft, Non tender, Bowel sounds present Extremities/Musculoskeletal:normal inspection, B/L LE edema, RLE erythema Neurologic/Psych:AAOX3, grossly no focal neurological deficits Skin: normal color, warm Results & Data Results & Data ([facility]) Vital Signs (Past 12 Hours) Vital Signs Temp Pulse Pulse Resp BP BP Pulse Ox 09/18/20 07:18 36.3 C L 72 16 127/79 97 09/18/20 05:49 70 136/85 97 09/18/20 03:54 157/91 H 09/18/20 03:39 36.6 C 86 20 173/100 H 99 09/18/20 02:30 67 14 139/95 99 09/18/20 02:28 71 20 136/87 98 Laboratory Results Short CBC 09/17/20 09/18/20 Range/Units 22:59 06:24 WBC 10.18 9.60 (4.8-10.8) K/uL Hgb 11.8 L 12.8 (12.0-16.0) g/dL Hct 37.0 40.7 (37-47) % Plt Count 350 332 (130-400) K/uL BMP 09/17/20 09/18/20 22:59 06:24 Sodium 143 146 H Potassium 3.7 3.9 Chloride 111 H 114 H Carbon Dioxide 29 29 BUN 16 15 Creatinine 0.68 0.54 L Glucose 86 81 Calcium 9.1 9.6 Cardiac Enzymes 09/17/20 Range/Units 22:59 Troponin I < 0.015 (0-0.045) ng/ml Liver Function 09/17/20 Range/Units 22:59 Total Bilirubin 0.2 (0.2-1) mg/dl AST 19 (15-37) U/L ALT 23 (12-78) U/L Alkaline Phosphatase 44 L (45-117) U/L Albumin 3.2 L (3.4-5.0) gm/dl Urine 09/18/20 Range/Units 01:35 Urine Color Yellow Urine Appearance Clear (Clear) Urine pH 6.5 (4.5-7.5) Ur Specific [place] 1.005 (1.000-1.030) Urine Protein Negative (Negative) Urine Glucose (UA) Negative (Negative)
--- NOTE | 2020-09-18 14:39 | Electrocardiogram Report ---
Test Reason : Blood Pressure : / mmHG Vent. Rate : 081 BPM Atrial Rate : 081 BPM P-R Int : 140 ms QRS Dur : 066 ms QT Int : 360 ms P-R-T Axes : 070 -06 009 degrees QTc Int : 418 ms Normal sinus rhythm Anteroseptal infarct (cited on or before 06-JUN-2011) Abnormal ECG When compared with ECG of 08-JUN-2011 06:50, Questionable change in initial forces of Anterior leads Confirmed by Jeff Mac ([id number]) on 09/18/2020 2:38:59 PM Referred By: REFERRED SELF Confirmed By:Jeff Mac
[2020-09-18] MEDS ORDERED: ENOXAPARIN INJ 60 MG/0.6 ML SYR SQ SCH (16:00)
[2020-09-18] MEDS ORDERED: Nursing to Pharmacy Communication SCH (16:30)
[2020-09-18] MEDS: CHOLECALCIFEROL 1,000 UNITS 25 MCG TAB PO SCH (17:23)
[2020-09-18] MEDS: DIPHENOXYLATE/ATROPINE 2.5/0.025MG TAB PO SCH (17:24)
[2020-09-18] MEDS: BISMUTH SUBSALICYLATE 262 MG CHEW PO SCH (17:24)
[2020-09-18] MEDS: ASCORBIC ACID 500 MG TAB PO SCH (17:25)
[2020-09-18] MEDS: ZINC SULFATE 220 MG CAPSULE PO SCH (17:25)
[2020-09-18] MEDS: VITAMIN A 25,000 UNIT CAP PO SCH (17:26)
[2020-09-18] MEDS: LOPERAMIDE HCL 2 MG CAP PO SCH (17:30)
[2020-09-18] MEDS ORDERED: ALOSETRON HCL 1 MG PO SCH (21:00)
[2020-09-18] MEDS: DOXYCYCLINE HYCLATE 100 MG CAP PO SCH (22:02)
[2020-09-18] MEDS: ALOSETRON HCL 1 MG PO SCH (22:02)
[2020-09-19] MEDS: RESTASIS~ORDER AWAITING ACTION SCH ×4 (00:35→23:20)
[2020-09-19] MEDS ORDERED: ENOXAPARIN INJ 60 MG/0.6 ML SYR SQ SCH (06:00)
[2020-09-19] MEDS: [UNRECOGNIZED DRUG - OTHER] PO SCH (06:03)
[2020-09-19] MEDS: ACETAMINOPHEN 325 MG TAB PO PRN ×3 (07:37→22:54)
[2020-09-19 08:40] LABS: Hematocrit (blood only) 39.7 % (37-47); Hemoglobin 12.4 g/dL (12.0-16.0); Mean Corpuscular Hemoglobin 29.7 pg (25-34); Mean Corpuscular Hgb Conc 31.2 g/dL (32-36); Mean Corpuscular Volume 95.2 fL (80-100); Mean Platelet Volume 9.8 fL (7.4-10.4); Platelet Count 326 K/uL (130-400); RDW Coefficient of Variation 13.4 % (11.5-14.5); RDW Standard Deviation 46.5 fL (36.4-46.3); Red Blood Count 4.17 M/uL (4.2-5.4); White Blood Count 10.08 K/uL (4.8-10.8)
[2020-09-19 08:57] LABS: Creatinine Clr Calc Pharmacy 71.5 ml/min; Est GFR (African American) 111.6 ml/min; Est GFR (Non-African American) 96.3 ml/min
[2020-09-19] MEDS: DOXYCYCLINE HYCLATE 100 MG CAP PO SCH ×2 (09:00→22:48)
[2020-09-19] MEDS: BUDESONIDE EC 3 MG CAP PO SCH (09:01)
[2020-09-19] MEDS: BISMUTH SUBSALICYLATE 262 MG CHEW PO SCH ×2 (09:01→17:19)
[2020-09-19] MEDS: DIPHENOXYLATE/ATROPINE 2.5/0.025MG TAB PO SCH ×2 (09:02→17:16)
[2020-09-19] MEDS: methylPREDNISolone 4 MG TAB PO SCH (09:02)
[2020-09-19] MEDS: CALCIUM 600MG + VIT D 400 IU TAB PO SCH ×2 (09:02→22:48)
[2020-09-19] MEDS: ALOSETRON HCL 1 MG PO SCH ×2 (09:03→17:16)
[2020-09-19] MEDS: LOPERAMIDE HCL 2 MG CAP PO SCH ×2 (09:04→17:17)
[2020-09-19] MEDS: lisinopril 20 MG TAB PO SCH (09:05)
[2020-09-19] MEDS: COLESTIPOL HCL 1 GM TAB PO SCH (10:55)
--- NOTE | 2020-09-19 13:45 | Ultrasound Report ---
LEFT CALF ULTRASONOGRAPHY CLINICAL HISTORY: Right Lower Extremity R/O Hematoma COMPARISON STUDY: No previous studies for comparison. FINDINGS: There is an avascular complex hypoechoic mass within the medial calf measuring 8.4 x 1.5 x 4.6 cm. This statistically represents a hematoma. Clinical and/or imaging follow-up recommended. IMPRESSION: 1. The palpable mass within the left calf corresponds to a 8.4 x 1.5 x 4.6 cm complex hypoechoic mass which abuts the superficial fascia of the muscular bundle. This lesion statistically represents a he matoma. Clinical and/or imaging follow-up recommended ACT 112: Negative or not required by law. Electronically signed by: James Danielson M.D. 09/19/2020 1:43 PM
--- NOTE | 2020-09-19 15:20 | Orthopedic Consultation ---
Date of Consultation September 19, 2020 Assessment & Plan (1) Hematoma: Spontaneous hematoma right calf after instituting DVT prophylaxis with Lovenox. Continue to watch the hematoma for now. We discussed that currently, there will be no surgical intervention for this at this point in time as far as evacuation. If the hematoma continues to grow however this may change. No evidence of compartment syndrome at this time. Dr. Roa has stopped her Lovenox at this point in time. She will obviously have to have this restarted or change to another medication to treat her DVT. Ice pack to the right hematoma for now. She should be nonweightbearing on the right lower extremity for now with use of walker or crutches. Limit activity as best as possible over the next [address] York will see the patient later this evening for further input. Dr. Rodney is on-call for this weekend if further problems arise. History of Present Illness Reason for Consultation: Hematoma right medial calf Attending Physician: Matthew Roa MD History of Present Illness Patient is a 65-year-old female with past medical history significant for hypertension, hypothyroidism, vasculitis, Sjogren's syndrome on chronic steroid Rx, collagenous colitis as per records, chronic anemia (baseline hemoglobin of 11), traumatic RLE wound, past tobacco abuse. Patient began noticing some increased lower extremity swelling right greater than left. She apparently has been more sedate since acquiring a traumatic wound to the right quach which has been difficult healing. She states that the wound is starting to heal much better but is taken a lot of time. There was concern for her lower extremity swelling and she was sent to the emergency room. Venous Doppler proved to show a right proximal peroneal DVT. The patient was admitted and started on subcu Lovenox twice daily. He received a dose this morning. Later on while sitting in her chair she began noticing an increase swelling of her right medial calf. She began having some discomfort starting to have increased pain with ambulation in that area as well as into her ankle. She was found to have a hematoma that had developed spontaneously over the medial calf and we have been asked to see her for this reason. Allergies Allergy/AdvReac Type Severity Reaction Status Date / Time amoxicillin [From Augmentin] AdvReac Intermediate Vomiting Verified 09/18/20 04:38 clavulanic acid AdvReac Intermediate Vomiting Verified 09/18/20 04:38 [From Augmentin] sulfamethoxazole AdvReac Intermediate NAUSEA/VOMI Verified 09/18/20 04:38 TING trimethoprim AdvReac Intermediate NAUSEA/VOMI Verified 09/18/20 04:38 TING cephalexin [From Keflex] AdvReac Mild Nausea Verified 09/18/20 04:38 Home Medications Medication Instructions Recorded Confirmed Type cholecalciferol (vitamin D3) 25 1,000 units PO DAILY 11/16/17 09/17/20 History mcg (1,000 unit) capsule cyclosporine 0.05 % eye drops 1 drops OP Q12H 11/16/17 09/17/20 History alosetron 1 mg tablet 1 mg PO BID tab 11/13/18 09/17/20 History eiibiyt-mvqzpxoagoads-aajslcge 250 2 tab PO Q6H PRN 11/13/18 09/17/20 History mg-250 mg-65 mg tablet methylprednisolone 4 mg tablet 4 mg PO DAILY tab 11/13/18 09/17/20 History budesonide 9 mg tablet,delayed and 9 mg PO DAILY 11/22/18 09/17/20 History extended release calcium carbonate 600 mg (1,500 1 tab PO BID tab 11/22/18 09/17/20 History mg)-vitamin D3 200 unit tablet diphenoxylate-atropine 2.5 1 tab PO BID tab 11/22/18 09/18/20 History mg-0.025 mg tablet colestipol 1 gram tablet 1 gm PO DAILY tab 12/22/18 09/18/20 History denosumab 60 mg/mL subcutaneous 60 mg SQ .COMPLEX ml 12/22/18 09/17/20 History syringe loperamide 2 mg capsule 2 mg PO BID cap 12/22/18 09/17/20 History lisinopril 20 mg tablet 20 mg PO DAILY 04/10/20 09/17/20 History bismuth subsalicylate 262 mg tablet 1 tab PO BID tab 07/01/20 09/18/20 History simethicone 125 mg capsule 125 mg PO DIRECTED PRN cap 07/01/20 09/17/20 History Synthroid 75 mcg tablet 75 mcg PO .COMPLEX #30 tab NS 07/23/20 09/17/20 Rx ascorbic acid (vitamin C) [Vitamin 500 mg PO DAILY 09/17/20 09/18/20 History C] vitamin A 2,400 unit PO DAILY 09/17/20 09/18/20 History zinc 50 mg PO DAILY 09/17/20 09/18/20 History apixaban [Eliquis] 5 mg PO UD #74 ea 09/18/20 Rx Patient History Medical History Colitis Hypothyroidism Migraine headache Osteopenia Polyarthritis Sjogrens syndrome Vasculitis Surgical History H/O detached retina repair History of laparoscopy Hx of cataract surgery both eyes Hx of dilation and curettage Hx of wisdom tooth extraction Family History Mother Rheumatic heart disease Bacterial endocarditis Father Gout Social History Smoking Status: Former smoker Second Hand Exposure: No; Do You Dip or Chew Tobacco: No; Tobacco Cessation Education Requested by Patient: No Hx Alcohol Use: No Hx Substance Use: No Preferred Language: Icelandic Communication Ability: Effective Practice Managers Required: No Beliefs That Will Affect Care: None Current Living Situation: Spouse Current Living Situation Comment: Lives at home with Other Information That Helps Us Care for You: No Feels Safe at Home: Yes Safety Concerns: Feels Safe At This Time Assistive Devices: Glasses Assistive Devices Comment: glasses are at home Review of Systems Review of Systems: All systems reviewed & are unremarkable except as noted in HPI & below Physical Exam Physical Exam: Patient is currently sitting up in her bed awake and alert. Oriented x3. No acute distress. Pleasant and cooperative. Currently she states that she is comfortable right now. Most of her pain occurs whenever she is trying to ambulate. On examination of her right lower extremity she has an obvious hematoma in the medial calf proximally. This is firm on palpation and tender. She has some noted swelling that appears to be residual bleeding that is going down lower extremity to the ankle. The ankle is tender on palpation but she is able to take it through range of motion. Passive dorsiflexion of the great toe does not cause her any pain. Passive dorsiflexion of the ankle causes some slight di scomfort in the ankle but not in the calf. She states that she has some decrease sensation in her foot of which she has dealt with over time. Nothing new has increased since the shinto of the hematoma. No gross motor loss and no new sensory loss. Results & Data ([facility]) Vital Signs (Past 12 Hours) Vital Signs Temp Pulse Resp BP Pulse Ox 09/19/20 09:05 150/89 H 09/19/20 07:24 36.6 C 74 16 120/77 98 Diagnostic Findings Patient: KASSANDRA ALBERTO AAdmit Date: 09/18/20MR#: [id number]: [id number] DRAcct ID:[id number]: [address]Birth Date: [address] Zip: [place], [place] [address]Luz: 65Location: 3NSex: FRoom/Bed: [id number] Phy: Matthew Roa MDDiagnosis: DVT, CELLULITISPri Phy: Alexx Sepulveda, DOService Date: 09/19/20Fam Phy:Interpreting Phy: James Danielson MDAdmit Phy: Anatoliy Bill MD Ordering Phy: Matthew Roa MD cc: ~ LEFT CALF ULTRASONOGRAPHY CLINICAL HISTORY: Right Lower Extremity R/O Hematoma COMPARISON STUDY: No previous studies for comparison. FINDINGS: There is an avascular complex hypoechoic mass within the medial calf measuring 8.4 x 1.5 x 4.6 cm. This statistically represents a hematoma. Clinical and/or imaging follow-up recommended. IMPRESSION: 1. The palpable mass within the left calf corresponds to a 8.4 x 1.5 x 4.6 cm complex hypoechoic mass which abuts the superficial fascia of the muscular bundle. This lesion statistically represents a hematoma. Clinical and/or imaging follow-up recommended
[2020-09-19] MEDS: ZINC SULFATE 220 MG CAPSULE PO SCH (17:17)
[2020-09-19] MEDS: CHOLECALCIFEROL 1,000 UNITS 25 MCG TAB PO SCH (17:18)
[2020-09-19] MEDS: VITAMIN A 25,000 UNIT CAP PO SCH (17:18)
[2020-09-19] MEDS: ASCORBIC ACID 500 MG TAB PO SCH (17:18)
--- NOTE | 2020-09-19 18:25 | Hospitalist Progress Note ---
Date of Service September 19, 2020 Assessment & Plan (1) Localized swelling of both lower legs: Acute deep vein thrombosis -Venous Doppler:DVT identified within the proximal right peroneal vein. No DVT within the left lower extremity. 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 Box Tender Possible Cellulitis Immunocompromised patient H/O vasculitis/Sjogren's syndrome on chronic steroid therapy Blood Culture:No growth to date Continue Doxycycline Hypertension BP Stable Continue lisinopril Hypothyroidism Continue Synthroid Chronic anemia Past tobacco abuse Monitor CBC DVT Px: Lovenox SQ--held due to hematoma Code Status Full Code Admission and Anticipated Discharge Date Admission Date: September 18, 2020 Subjective Patient is seen and examined at bedside Patient noticed sudden swelling of right calf associated with pain Lower extremity ultrasound suggestive of hematoma Denies chest pain, shortness breath, dizziness, nausea, abdominal pain Lovenox held Review of Systems Review of Systems: All systems reviewed & are unremarkable except as noted in HPI & below Physical Exam Physical Exam: Physical Exam: Vitals signs as noted above General Appearance:Moderately built and nourished, no apparent distress Head: normocephalic, Atraumatic Eyes: normal inspection, EOMI Neck: supple, Trachea midline Respiratory/Chest: Normal breath sounds, CTA Cardiovascular: S1, S2, No murmur Abdomen/GI:Soft, Non tender, Bowel sounds present Extremities/Musculoskeletal:normal inspection, B/L LE edema, RLE erythema Neurologic/Psych:AAOX3, grossly no focal neurological deficits Skin: normal color, warm Results & Data Results & Data ([facility]) Vital Signs (Past 12 Hours) Vital Signs Temp Pulse Resp BP Pulse Ox 09/19/20 15:47 36.8 C 73 16 109/72 96 09/19/20 09:05 150/89 H 09/19/20 07:24 36.6 C 74 16 120/77 98 Laboratory Results Short CBC 09/19/20 Range/Units 07:59 WBC 10.08 (4.8-10.8) K/uL Hgb 12.4 (12.0-16.0) g/dL Hct 39.7 (37-47) % Plt Count 326 (130-400) K/uL BMP 09/19/20 07:59 Sodium 143 Potassium 4.0 Chloride 110 H Carbon Dioxide 31 BUN 16 Creatinine 0.60 Glucose 73 Calcium 10.0
[2020-09-19 21:08] LABS: Hematocrit (blood only) 40.2 % (37-47); Hemoglobin 12.9 g/dL (12.0-16.0)
[2020-09-20] MEDS: [UNRECOGNIZED DRUG - OTHER] PO SCH (05:57)
[2020-09-20 07:11] LABS: Hematocrit (blood only) 38.9 % (37-47); Hemoglobin 12.2 g/dL (12.0-16.0); Mean Corpuscular Hemoglobin 29.8 pg (25-34); Mean Corpuscular Hgb Conc 31.4 g/dL (32-36); Mean Corpuscular Volume 94.9 fL (80-100); Mean Platelet Volume 9.5 fL (7.4-10.4); Platelet Count 318 K/uL (130-400); RDW Coefficient of Variation 13.3 % (11.5-14.5); RDW Standard Deviation 46.4 fL (36.4-46.3)
[2020-09-20 07:42] LABS: BUN Creatinine Ratio 25.5 (10-20); Est GFR (African American) 109.3 ml/min; Est GFR (Non-African American) 94.3 ml/min; Potassium 4.1 mmol/L (3.5-5.1)
[2020-09-20] MEDS: CALCIUM 600MG + VIT D 400 IU TAB PO SCH ×2 (07:58→20:46)
[2020-09-20] MEDS: DOXYCYCLINE HYCLATE 100 MG CAP PO SCH ×2 (07:58→20:46)
[2020-09-20] MEDS: BUDESONIDE EC 3 MG CAP PO SCH (07:58)
[2020-09-20] MEDS: DIPHENOXYLATE/ATROPINE 2.5/0.025MG TAB PO SCH ×2 (07:59→16:38)
[2020-09-20] MEDS: LOPERAMIDE HCL 2 MG CAP PO SCH ×2 (07:59→16:37)
[2020-09-20] MEDS: lisinopril 20 MG TAB PO SCH (07:59)
[2020-09-20] MEDS: BISMUTH SUBSALICYLATE 262 MG CHEW PO SCH ×2 (08:00→16:37)
[2020-09-20] MEDS: ALOSETRON HCL 1 MG PO SCH ×2 (08:05→16:39)
[2020-09-20] MEDS: methylPREDNISolone 4 MG TAB PO SCH (08:11)
[2020-09-20] MEDS: RESTASIS~ORDER AWAITING ACTION SCH ×3 (08:14→23:26)
--- NOTE | 2020-09-20 09:33 | Orthopedic Progress Note ---
Date of Service September 20, 2020 Assessment & Plan (1) Hematoma: She has a spontaneous hematoma in her right lower leg after initiating anticoagulation for DVT. She denies any trauma in the area. The hematoma feels subcutaneous. The deep muscle compartments are soft and compressible. No evid ence of compartment syndrome. She reports no change in size over the past 24 hours. I would not recommend any surgical intervention at this point. I would recommend rest, ice, compression, and elevation. I advised her that it can take months for the hematoma to completely resorb. She can follow-up with Dr. York in his clinic 1 to 2 weeks after discharge. Please call [facility] [place] at [phone] to make an appointment. Admission and Anticipated Discharge Date Admission Date: September 18, 2020 Subjective Patient resting comfortably. She notes soreness in her right calf around the hematoma. She feels like it has not changed in size at all in the past 24 hours Physical Exam Physical Exam: Examination of the right lower leg reveals a obvious subcutaneous hematoma measuring about 5 cm in diameter on the posterior medial aspect of the lower leg. The deeper muscle compartments do not appear involved and are very soft and easily compressible. Motor and sensory function is intact distally. No pain with passive stretch. Results & Data ([facility]) Vital Signs (Past 12 Hours) Vital Signs Temp Pulse Resp BP Pulse Ox 09/20/20 07:33 36.6 C 76 17 112/73 98 09/19/20 23:48 36.8 C 75 16 99/67 L 96
[2020-09-20] MEDS: COLESTIPOL HCL 1 GM TAB PO SCH (10:01)
[2020-09-20] MEDS: ACETAMINOPHEN 325 MG TAB PO PRN ×2 (10:03→19:19)
[2020-09-20] MEDS ORDERED: Heparin IV Adult Wt-Based Low-Dose *NO* Bolus Protocol IV SCH (12:59)
[2020-09-20 13:37] LABS: Basophils # (auto) 0.02 K/uL (0-0.2); Basophils % (auto) 0.1 %; Hematocrit (blood only) 43.4 % (37-47); Hemoglobin 13.8 g/dL (12.0-16.0); Immature Granulocytes # (auto) 0.18 K/uL (0.00-0.02); Immature Granulocytes % (auto) 1.3 %; Lymphocytes # (auto) 0.89 K/uL (1.2-3.4); Lymphocytes % (auto) 6.6 %; Mean Corpuscular Hemoglobin 30.8 pg (25-34); Mean Corpuscular Volume 96.9 fL (80-100); Mean Platelet Volume 9.8 fL (7.4-10.4); Monocytes # (auto) 0.92 K/uL (0.11-0.59); Monocytes % (auto) 6.8 %; Neutrophils # (auto) 11.44 K/uL (1.4-6.5); Neutrophils % (auto) 85.2 %; Platelet Count 384 K/uL (130-400); RDW Coefficient of Variation 13.4 % (11.5-14.5); RDW Standard Deviation 47.8 fL (36.4-46.3); Red Blood Count 4.48 M/uL (4.2-5.4); White Blood Count 13.45 K/uL (4.8-10.8)
[2020-09-20 13:53] LABS: Partial Thromboplastin Ratio 0.8; Partial Thromboplastin Time 21.7 Seconds (21.0-31.0); Prothrombin Time 9.7 Seconds (9.0-12.0)
[2020-09-20 14:06] LABS: Mean Corpuscular Hgb Conc 31.8 g/dL (32-36)
[2020-09-20] MEDS: HEPARIN SODIUM/DEXTROSE 25,000 UNITS/500 ML BAG IV SCH (14:41)
[2020-09-20] MEDS: VITAMIN A 25,000 UNIT CAP PO SCH (16:36)
[2020-09-20] MEDS: CHOLECALCIFEROL 1,000 UNITS 25 MCG TAB PO SCH (16:36)
[2020-09-20] MEDS: ZINC SULFATE 220 MG CAPSULE PO SCH (16:36)
[2020-09-20] MEDS: ASCORBIC ACID 500 MG TAB PO SCH (16:38)
--- NOTE | 2020-09-20 17:17 | Hospitalist Progress Note ---
Date of Service September 20, 2020 Assessment & Plan (1) Localized swelling of both lower legs: Acute deep vein thrombosis -Venous Doppler:DVT identified within the proximal right peroneal vein. No DVT within the left lower extremity. -SQ Lovenox held due to hematoma Discussed with orthopedics today (09/20/20) Resume low-dose IV heparin--patient understands risk for bleeding, agrees with current management Monitor H&H closely Low threshold to stop IV heparin if concern for worsening hematoma Right lower extremity hematoma Spontaneous while on SQ Lovenox Currently no plan for surgical intervention Nonweightbearing on right lower extremity Vascular surgery consulted as well Monitor CBC Will repeat lower extremity ultrasound tomorrow Chronic lower extremity edema History of vasculitis Follows with rheumatology as outpatient On chronic prednisone Currently on prednisone taper as per her [employer] Possible Cellulitis Immunocompromised patient H/O vasculitis/Sjogren's syndrome on chronic steroid therapy Blood Culture:No growth to date Continue Doxycycline Hypertension BP Stable Continue lisinopril Hypothyroidism Continue Synthroid Chronic anemia Past tobacco abuse Monitor CBC DVT Px: IV Heparin Code Status Full Code Admission and Anticipated Discharge Date Admission Date: September 18, 2020 Subjective Patient is seen and examined at bedside Subjectively feels abdominal size is slightly better Persistent pain of right lower extremity Discussed with orthopedics today Denies chest pain, shortness breath, dizziness, nausea, abdominal pain Review of Systems Review of Systems: All systems reviewed & are unremarkable except as noted in HPI & below Physical Exam Physical Exam: Physical Exam: Vitals signs as noted above General Appearance:Moderately built and nourished, no apparent distress Head: normocephalic, Atraumatic Eyes: normal inspection, EOMI Neck: supple, Trachea midline Respiratory/Chest: Normal breath sounds, CTA Cardiovascular: S1, S2, No murmur Abdomen/GI:Soft, Non tender, Bowel sounds present Extremities/Musculoskeletal:normal inspection, B/L LE edema, RLE erythema Neurologic/Psych:AAOX3, grossly no focal neurological deficits Skin: normal color, warm Results & Data Results & Data ([facility]) Vital Signs (Past 12 Hours) Vital Signs Temp Pulse Resp BP Pulse Ox 09/20/20 15:47 36.7 C 81 18 91/59 L 96 09/20/20 07:33 36.6 C 76 17 112/73 98 Laboratory Results Short CBC 09/19/20 09/20/20 09/20/20 Range/Units 20:51 06:57 13:27 WBC 9.80 13.45 H (4.8-10.8) K/uL Hgb 12.9 12.2 13.8 (12.0-16.0) g/dL Hct 40.2 38.9 43.4 (37-47) % Plt Count 318 384 (130-400) K/uL [facility] 09/20/20 06:57 Sodium 143 Potassium 4.1 Chloride 110 H Carbon Dioxide 29 BUN 16 Creatinine 0.64 Glucose 81 Calcium 10.0
[2020-09-20 18:52] LABS: Hematocrit (blood only) 42.4 % (37-47); Hemoglobin 13.5 g/dL (12.0-16.0)
[2020-09-20 23:08] LABS: Partial Thromboplastin Ratio 1.5; Partial Thromboplastin Time 39.2 Seconds (21.0-31.0)
[2020-09-21 01:10] LABS: Hematocrit (blood only) 37.1 % (37-47); Hemoglobin 11.8 g/dL (12.0-16.0)
[2020-09-21 06:24] LABS: Hematocrit (blood only) 39.6 % (37-47); Hemoglobin 12.6 g/dL (12.0-16.0); Mean Corpuscular Hemoglobin 30.4 pg (25-34); Mean Corpuscular Hgb Conc 31.8 g/dL (32-36); Mean Corpuscular Volume 95.7 fL (80-100); Mean Platelet Volume 9.8 fL (7.4-10.4); Platelet Count 305 K/uL (130-400); RDW Coefficient of Variation 13.4 % (11.5-14.5); RDW Standard Deviation 46.6 fL (36.4-46.3); Red Blood Count 4.14 M/uL (4.2-5.4)
[2020-09-21 06:50] LABS: Partial Thromboplastin Ratio 2.2
[2020-09-21] MEDS: RESTASIS~ORDER AWAITING ACTION SCH ×2 (07:11→15:43)
[2020-09-21 07:24] LABS: Partial Thromboplastin Time 56.7 Seconds (21.0-31.0)
[2020-09-21] MEDS: ALOSETRON HCL 1 MG PO SCH ×2 (07:42→17:02)
[2020-09-21] MEDS: methylPREDNISolone 4 MG TAB PO SCH (07:43)
[2020-09-21] MEDS: LOPERAMIDE HCL 2 MG CAP PO SCH ×2 (07:43→17:01)
[2020-09-21] MEDS: BISMUTH SUBSALICYLATE 262 MG CHEW PO SCH ×2 (07:44→17:01)
[2020-09-21] MEDS: BUDESONIDE EC 3 MG CAP PO SCH (07:44)
[2020-09-21] MEDS: DIPHENOXYLATE/ATROPINE 2.5/0.025MG TAB PO SCH ×2 (07:44→17:01)
[2020-09-21] MEDS: lisinopril 20 MG TAB PO SCH (07:44)
[2020-09-21] MEDS: DOXYCYCLINE HYCLATE 100 MG CAP PO SCH ×2 (07:45→22:24)
[2020-09-21] MEDS: CALCIUM 600MG + VIT D 400 IU TAB PO SCH ×2 (07:45→22:24)
--- NOTE | 2020-09-21 09:42 | Ultrasound Report ---
RIGHT LOWER EXTREMITY VENOUS DOPPLER HISTORY: Follow-up right lower extremity DVT and hematoma. COMPARISON STUDY: Right leg venous Doppler 09/17/2020. FINDINGS: There is again noted thrombus identified within the proximal right peroneal vein. This is s imilar to the prior study. The right common femoral, superficial femoral, popliteal, anterior tibial, posterior tibial veins remain patent. There is a 7.4 x 1.7 x 4.2 cm complex subcutaneous fluid colle ction within the right calf. This is similar to the prior study and again favors a subcutaneous hemat patricia. IMPRESSION: 1. No change in the DVT within the proximal right peroneal vein. 2. No significant change in the complex subcutaneous fluid collection within the right calf. This fav ors a subcutaneous hematoma. 1-2 month ultrasound follow-up recommended to ensure resolution. ACT 112: Negative or not required by law. Electronically signed by: Jin Garcia M.D. 09/21/2020 9:40 AM
[2020-09-21] MEDS: COLESTIPOL HCL 1 GM TAB PO SCH (11:01)
[2020-09-21] MEDS: ACETAMINOPHEN 325 MG TAB PO PRN (11:02)
[2020-09-21 13:02] LABS: Hematocrit (blood only) 44.6 % (37-47)
[2020-09-21] MEDS: CHOLECALCIFEROL 1,000 UNITS 25 MCG TAB PO SCH (17:01)
[2020-09-21] MEDS: ZINC SULFATE 220 MG CAPSULE PO SCH (17:01)
[2020-09-21] MEDS: VITAMIN A 25,000 UNIT CAP PO SCH (17:01)
[2020-09-21] MEDS: ASCORBIC ACID 500 MG TAB PO SCH (17:01)
[2020-09-21 19:02] LABS: Hematocrit (blood only) 40.2 % (37-47); Hemoglobin 12.8 g/dL (12.0-16.0)
--- NOTE | 2020-09-21 19:45 | Hospitalist Progress Note ---
Date of Service September 21, 2020 Assessment & Plan (1) Localized swelling of both lower legs: Acute deep vein thrombosis -Venous Doppler:DVT identified within the proximal right peroneal vein. No DVT within the left lower extremity. -SQ Lovenox held due to hematoma Discussed with orthopedics today (09/20/20) Resume low-dose IV heparin--patient understands risk for bleeding, agrees with current management Monitor H&H Low threshold to stop IV heparin if concern for worsening hematoma Hb Stable Repeat Venous doppler remains unchanged Right lower extremity hematoma Spontaneous while on SQ Lovenox Currently no plan for surgical intervention Nonweightbearing on right lower extremity Vascular surgery consulted-Pending Input Monitor CBC --Repeat Venous Doppler: No change in the DVT within the proximal right peroneal vein. No significant change in the complex subcutaneous fluid collection within the right calf. This favors a subcutaneous hematoma. 1-2 month ultrasound follow-up recommended to ensure resolution. 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 Possible Cellulitis Immunocompromised patient H/O vasculitis/Sjogren's syndrome on chronic steroid therapy Blood Culture:No growth to date Continue Doxycycline Day #3 Hypertension BP Stable Continue lisinopril Hypothyroidism Continue Synthroid Chronic anemia Past tobacco abuse Monitor CBC DVT Px: IV Heparin Code Status Full Code Admission and Anticipated Discharge Date Admission Date: September 18, 2020 Subjective Patient is seen and examined at bedside No new complaints Hb Stable Repeat Venous doppler is unchanged Persistent leg pain Denies chest pain, shortness breath, dizziness, nausea, abdominal pain Review of Systems Review of Systems: All systems reviewed & are unremarkable except as noted in HPI & below Physical Exam Physical Exam: Physical Exam: Vitals signs as noted above General Appearance:Moderately built and nourished, no apparent distress Head: normocephalic, Atraumatic Eyes: normal inspection, EOMI Neck: supple, Trachea midline Respiratory/Chest: Normal breath sounds, CTA Cardiovascular: S1, S2, No murmur Abdomen/GI:Soft, Non tender, Bowel sounds present Extremities/Musculoskeletal:normal inspection, B/L LE edema, RLE erythema Neurologic/Psych:AAOX3, grossly no focal neurological deficits Skin: normal color, warm Results & Data Results & Data ([facility]) Vital Signs (Past 12 Hours) Vital Signs Temp Pulse Resp BP Pulse Ox 09/21/20 17:09 95 H 96/62 L 09/21/20 16:53 36.5 C 84 16 79/50 L 97 Laboratory Results Short CBC 09/21/20 09/21/20 09/21/20 Range/Units 00:31 06:11 12:46 WBC 9.60 (4.8-10.8) K/uL Hgb 11.8 L 12.6 14.0 (12.0-16.0) g/dL Hct 37.1 39.6 44.6 (37-47) % Plt Count 305 (130-400) K/uL 09/21/20 Range/Units 18:50 WBC (4.8-10.8) K/uL Hgb 12.8 (12.0-16.0) g/dL Hct 40.2 (37-47) % Plt Count (130-400) K/uL
[2020-09-21] MEDS: HEPARIN SODIUM/DEXTROSE 25,000 UNITS/500 ML BAG IV SCH (20:15)
[2020-09-22] MEDS: RESTASIS~ORDER AWAITING ACTION SCH ×4 (00:10→22:40)
[2020-09-22] MEDS: [UNRECOGNIZED DRUG - OTHER] PO SCH (06:21)
[2020-09-22] MEDS: HEPARIN SODIUM/DEXTROSE 25,000 UNITS/500 ML BAG IV SCH (06:47)
[2020-09-22] MEDS: ACETAMINOPHEN 325 MG TAB PO PRN (06:54)
[2020-09-22 07:07] LABS: Hematocrit (blood only) 43.2 % (37-47); Hemoglobin 13.4 g/dL (12.0-16.0); Mean Corpuscular Hemoglobin 30.3 pg (25-34); Mean Corpuscular Volume 97.7 fL (80-100); Mean Platelet Volume 10.2 fL (7.4-10.4); Platelet Count 368 K/uL (130-400); RDW Coefficient of Variation 13.7 % (11.5-14.5); RDW Standard Deviation 49.1 fL (36.4-46.3); Red Blood Count 4.42 M/uL (4.2-5.4); White Blood Count 11.37 K/uL (4.8-10.8)
[2020-09-22 07:31] LABS: Partial Thromboplastin Ratio 2.6
[2020-09-22 07:33] LABS: Partial Thromboplastin Time 69.5 Seconds (21.0-31.0)
[2020-09-22 07:37] LABS: ALC (manual) 5.43 K/uL (1.2-3.4); ANC (manual) 5.23 K/uL (1.4-6.5); Lymphocytes # (manual) 5.43 K/uL (1.2-3.4); Lymphocytes % (manual) 47.8 %; Monocytes % (manual) 3.5 %; Myelocytes # (manual) 0.31 K/uL (0-0); Myelocytes % (manual) 2.7 %; Neutrophils # (manual) 5.23 K/uL (1.4-6.5)
--- NOTE | 2020-09-22 10:08 | Consultation ---
Date of Consultation September 22, 2020 Assessment & Plan (1) Deep venous thrombosis (DVT) of right peroneal vein: Pt with small, stable, R peroneal vein DVT. Also with R medial calf hematoma, which is decreasing in size, despite restarting her heparin. Pt discussed with Dr Piedra, does not recommend IVC filter insertion at this time. Would be happy to reevaluate pt if she develops significant further bleeding with decrease in hgb. Pt aware. Please call if needed. Chronicity: acute Qualified Code(s): I82.451 - Acute embolism and thrombosis of right peroneal vein History of Present Illness Reason for Consultation: RLE DVT/hematoma Attending Physician: Matthew Roa MD History of Present Illness 65 yo f with multiple medical problems, including HTN, Sjogrens syndrome, hypothyroidism, colitis, vasculitis, osteopenia, admitted with RLE peroneal v DVT, then noted to develop R calf hematoma after AC initiated, seen in consultation for possible IVC filter insertion. Pt admits pain in R calf over hematoma. Imaging demonstrates decrease in size of her hematoma, and a stable small R peroneal v DVT. Pt's heparin was stopped, and then restarted. Hgb has been stable at 12-13. Pt was also eval by orthopedics and no hematoma evacuation is planned. Pt states pain is improving. States she had some R lower leg ecchymosis even prior to admission, but does not remember an injury to this area. Pt denies WEBB, fever, chest pain, recent illness, abd pain, N/V, SOB, rest pain, claudication, other complaints. Allergies Allergy/AdvReac Type Severity Reaction Status Date / Time amoxicillin [From Augmentin] AdvReac Intermediate Vomiting Verified 09/18/20 04:38 clavulanic acid AdvReac Intermediate Vomiting Verified 09/18/20 04:38 [From Augmentin] sulfamethoxazole AdvReac Intermediate NAUSEA/VOMI Verified 09/18/20 04:38 TING trimethoprim AdvReac Intermediate NAUSEA/VOMI Verified 09/18/20 04:38 TING cephalexin [From Keflex] AdvReac Mild Nausea Verified 09/18/20 04:38 Home Medications Medication Instructions Recorded Confirmed Type cholecalciferol (vitamin D3) 25 1,000 units PO DAILY 11/16/17 09/17/20 History mcg (1,000 unit) capsule cyclosporine 0.05 % eye drops 1 drops OP Q12H 11/16/17 09/17/20 History alosetron 1 mg tablet 1 mg PO BID tab 11/13/18 09/17/20 History oywqgup-zmhufwtxcqopk-turhurjd 250 2 tab PO Q6H PRN 11/13/18 09/17/20 History mg-250 mg-65 mg tablet methylprednisolone 4 mg tablet 4 mg PO DAILY tab 11/13/18 09/17/20 History budesonide 9 mg tablet,delayed and 9 mg PO DAILY 11/22/18 09/17/20 History extended release calcium carbonate 600 mg (1,500 1 tab PO BID tab 11/22/18 09/17/20 History mg)-vitamin D3 200 unit tablet diphenoxylate-atropine 2.5 1 tab PO BID tab 11/22/18 09/18/20 History mg-0.025 mg tablet colestipol 1 gram tablet 1 gm PO DAILY tab 12/22/18 09/18/20 History denosumab 60 mg/mL subcutaneous 60 mg SQ .COMPLEX ml 12/22/18 09/17/20 History syringe loperamide 2 mg capsule 2 mg PO BID cap 12/22/18 09/17/20 History lisinopril 20 mg tablet 20 mg PO DAILY 04/10/20 09/17/20 History bismuth subsalicylate 262 mg tablet 1 tab PO BID tab 07/01/20 09/18/20 History simethicone 125 mg capsule 125 mg PO DIRECTED PRN cap 07/01/20 09/17/20 History Synthroid 75 mcg tablet 75 mcg PO .COMPLEX #30 tab NS 07/23/20 09/17/20 Rx ascorbic acid (vitamin C) [Vitamin 500 mg PO DAILY 09/17/20 09/18/20 History C] vitamin A 2,400 unit PO DAILY 09/17/20 09/18/20 History zinc 50 mg PO DAILY 09/17/20 09/18/20 History Patient History Medical History Colitis Hypothyroidism Migraine headache Osteopenia Polyarthritis Sjogrens syndrome Vasculitis Surgical History H/O detached retina repair History of laparoscopy Hx of cataract surgery both eyes Hx of dilation and curettage Hx of wisdom tooth extraction Family History Mother Rheumatic heart disease Bacterial endocarditis Father Gout Social History Smoking Status: Former smoker Second Hand Exposure: No; Do You Dip or Chew Tobacco: No; Tobacco Cessation Education Requested by Patient: No Hx Alcohol Use: No Hx Substance Use: No Preferred Language: Slovenian Communication Ability: Effective [place] Court Magistrate Required: No Beliefs That Will Affect Care: None Current Living Situation: Spouse Current Living Situation Comment: Lives at home with Other Information That Helps Us Care for You: No Feels Safe at Home: Yes Safety Concerns: Feels Safe At This Time Assistive Devices: Glasses and Walker Assistive Devices Comment: glasses are at home Review of Systems Review of Systems: All systems reviewed & are unremarkable except as noted in HPI & below Physical Exam Constitutional: WD/WN, vitals as above ENMT: Ears: no hearing impairment Neck: trachea midline Respiratory: normal respiratory effort, lungs clear to auscultation Auscultation: + diminished lung sounds Cardiovascular: RRR, no murmur, no edema Vessels: normal peripheral pulses, femoral pulses present, posterior tibial pulses present, dorsalis pedis pulses present, brachial pulses present and radial pulses present; no carotid bruit Extremities: normal capillary refill and + edema (Mile BLE, RLE slightly worse) Gastrointestinal (Abdomen): normal bowel sounds, soft, nontender, no hepatosplenomegaly Musculoskeletal: no cyanosis or clubbing, extremities motor strength 5/5 Skin: + wound (chronic wound R lower ant/lateral leg) Trauma: + hematoma (R medial calf, firm, ecchymosis extends distally to ankle, +tender) Neurologic: moves all extremities and awake; no focal motor deficits and not confused Psychiatric: A+Ox3, euthymic affect Results & Data ([facility]) Vital Signs (Past 12 Hours) Vital Signs Temp Pulse Resp BP Pulse Ox 09/21/20 23:57 36.7 C 74 22 116/76 99
[2020-09-22] MEDS: LOPERAMIDE HCL 2 MG CAP PO SCH ×2 (10:16→16:41)
[2020-09-22] MEDS: lisinopril 20 MG TAB PO SCH (10:16)
[2020-09-22] MEDS: methylPREDNISolone 4 MG TAB PO SCH (10:16)
[2020-09-22] MEDS: BUDESONIDE EC 3 MG CAP PO SCH (10:17)
[2020-09-22] MEDS: DOXYCYCLINE HYCLATE 100 MG CAP PO SCH ×2 (10:17→20:33)
[2020-09-22] MEDS: DIPHENOXYLATE/ATROPINE 2.5/0.025MG TAB PO SCH ×2 (10:17→16:41)
[2020-09-22] MEDS: CALCIUM 600MG + VIT D 400 IU TAB PO SCH ×2 (10:17→20:33)
[2020-09-22] MEDS: BISMUTH SUBSALICYLATE 262 MG CHEW PO SCH (10:17)
[2020-09-22] MEDS: ALOSETRON HCL 1 MG PO SCH ×2 (10:18→16:41)
[2020-09-22] MEDS ORDERED: CALCIUM CARBONATE 500 MG CHEWABLE TAB PO PRN (12:36)
[2020-09-22] MEDS: ENOXAPARIN 80 MG/0.8 ML SYR SQ SCH (13:34)
[2020-09-22] MEDS: COLESTIPOL HCL 1 GM TAB PO SCH (13:36)
[2020-09-22 16:12] LABS: Hematocrit (blood only) 40.8 % (37-47); Hemoglobin 12.9 g/dL (12.0-16.0)
[2020-09-22] MEDS: WARFARIN SOD 5 MG TAB PO SCH (16:41)
[2020-09-22] MEDS: VITAMIN A 25,000 UNIT CAP PO SCH (16:41)
[2020-09-22] MEDS: CHOLECALCIFEROL 1,000 UNITS 25 MCG TAB PO SCH (16:41)
[2020-09-22] MEDS: ASCORBIC ACID 500 MG TAB PO SCH (16:41)
[2020-09-22] MEDS: ZINC SULFATE 220 MG CAPSULE PO SCH (16:41)
[2020-09-22] MEDS ORDERED: LOVENOX TEACHING KIT ONE (17:22)
--- NOTE | 2020-09-22 18:29 | Hospitalist Progress Note ---
Date of Service September 22, 2020 Assessment & Plan (1) Localized swelling of both lower legs: Acute deep vein thrombosis -Venous Doppler:DVT identified within the proximal right peroneal vein. No DVT within the left lower extremity. -Lovenox held due to hematoma Discussed with orthopedics today (09/20/20) Was on IV heparin--patient understands risk for bleeding, agrees with current management Monitor H&H Hb Stable Repeat Venous doppler remains unchanged IV heparin transition to Lovenox Also started on Coumadin Monitor INR Right lower extremity hematoma Spontaneous while on SQ Lovenox Vasculitis could have contributed Currently no plan for surgical intervention Nonweightbearing on right lower extremity Appreciate Vascular surgery Input IVC filter not recommended at this time. Monitor CBC --Repeat Venous Doppler: No change in the DVT within the proximal right peroneal vein. No significant change in the complex subcutaneous fluid collection within the right calf. This favors a subcutaneous hematoma. 1-2 month ultrasound follow-up recommended to ensure resolution. --Monitor H&H Plan for repeat ultrasound tomorrow Chronic lower extremity edema History of vasculitis Follows with rheumatology as outpatient On chronic prednisone Currently on prednisone taper as per her Database Marketing Manager Possible Cellulitis Immunocompromised patient H/O vasculitis/Sjogren's syndrome on chronic steroid therapy Blood Culture:No growth to date Continue Doxycycline Day #4 Hypertension BP Stable Continue lisinopril Hypothyroidism Continue Synthroid Chronic anemia Past tobacco abuse Monitor CBC DVT Px: Lovenoox, coumadin Code Status Full Code Admission and Anticipated Discharge Date Admission Date: September 18, 2020 Subjective Patient is seen and examined at bedside Continues to have right leg pain Evaluated by vascular surgery today Denies chest pain, shortness breath, dizziness, nausea, abdominal pain Hb stable Review of Systems Review of Systems: All systems reviewed & are unremarkable except as noted in HPI & below Physical Exam Physical Exam: Physical Exam: Vitals signs as noted above General Appearance:Moderately built and nourished, no apparent distress Head: normocephalic, Atraumatic Eyes: normal inspection, EOMI Neck: supple, Trachea midline Respiratory/Chest: Normal breath sounds, CTA Cardiovascular: S1, S2, No murmur Abdomen/GI:Soft, Non tender, Bowel sounds present Extremities/Musculoskeletal:normal inspection, B/L LE edema, RLE ecchymoses Neurologic/Psych:AAOX3, grossly no focal neurological deficits Skin: normal color, warm Results & Data Results & Data ([facility]) Vital Signs (Past 12 Hours) Vital Signs Temp Pulse Resp BP Pulse Ox 09/22/20 16:00 36.9 C 83 18 102/66 98 Laboratory Results Short CBC 09/21/20 09/22/20 09/22/20 Range/Units 18:50 06:37 15:49 WBC 11.37 H (4.8-10.8) K/uL Hgb 12.8 13.4 12.9 (12.0-16.0) g/dL Hct 40.2 43.2 40.8 (37-47) % Plt Count 368 (130-400) K/uL
[2020-09-23] MEDS: [UNRECOGNIZED DRUG - OTHER] PO SCH (05:34)
[2020-09-23 06:22] LABS: Hemoglobin 12.1 g/dL (12.0-16.0); Mean Corpuscular Hemoglobin 30.4 pg (25-34); Mean Corpuscular Hgb Conc 31.8 g/dL (32-36); Mean Corpuscular Volume 95.5 fL (80-100); Mean Platelet Volume 10.1 fL (7.4-10.4); Platelet Count 297 K/uL (130-400); RDW Coefficient of Variation 13.7 % (11.5-14.5); RDW Standard Deviation 47.5 fL (36.4-46.3); Red Blood Count 3.98 M/uL (4.2-5.4); White Blood Count 9.36 K/uL (4.8-10.8)
[2020-09-23 06:30] LABS: Partial Thromboplastin Ratio 0.9; Partial Thromboplastin Time 24.8 Seconds (21.0-31.0); Prothrombin Time 10.2 Seconds (9.0-12.0)
[2020-09-23 06:57] LABS: Est GFR (African American) 108.7 ml/min; Est GFR (Non-African American) 93.8 ml/min
[2020-09-23] MEDS: ACETAMINOPHEN 325 MG TAB PO PRN ×2 (07:35→22:29)
[2020-09-23] MEDS: RESTASIS~ORDER AWAITING ACTION SCH ×3 (07:36→23:33)
[2020-09-23] MEDS: BUDESONIDE EC 3 MG CAP PO SCH (08:34)
[2020-09-23] MEDS: ALOSETRON HCL 1 MG PO SCH ×2 (08:34→16:55)
[2020-09-23] MEDS: DIPHENOXYLATE/ATROPINE 2.5/0.025MG TAB PO SCH ×2 (08:35→16:52)
[2020-09-23] MEDS: CALCIUM 600MG + VIT D 400 IU TAB PO SCH ×2 (08:35→20:26)
[2020-09-23] MEDS: LOPERAMIDE HCL 2 MG CAP PO SCH ×2 (08:36→16:53)
[2020-09-23] MEDS: DOXYCYCLINE HYCLATE 100 MG CAP PO SCH ×2 (08:36→20:26)
[2020-09-23] MEDS: methylPREDNISolone 4 MG TAB PO SCH (08:37)
[2020-09-23] MEDS: lisinopril 20 MG TAB PO SCH (08:39)
[2020-09-23] MEDS: COLESTIPOL HCL 1 GM TAB PO SCH (09:53)
--- NOTE | 2020-09-23 11:28 | Ultrasound Report ---
US extremity non-vascular ltd HISTORY: 65 years-old Female dvt, hematoma follow-up study in a patient with a hematoma of the right lower extremity COMPARISON: 09/19/2020 TECHNIQUE: Multiple real-time sonographic images of the right calf were obtained assessing grayscale appearance and color flow FINDINGS: Complex hypoechoic mass abutting the myofascial margin of the gastrocnemius redemonstrated now measur ing approximately 9.8 x 1.6 x 7.1 cm, previously measured at 8.4 x 1.5 x 4.6 cm. This demonstrates no color flow. IMPRESSION: Mildly increased size of the probable hematoma of the right calf now measuring up to 9.8 cm. Continued follow-up recommended. ACT 112: Negative or not required by law. The above report was generated using voice recognition software. It may contain grammatical, syntax o r spelling errors. Electronically signed by: Yoan William M.D. 09/23/2020 11:26 AM
[2020-09-23] MEDS: ENOXAPARIN 80 MG/0.8 ML SYR SQ SCH (13:43)
[2020-09-23 14:48] LABS: Hematocrit (blood only) 45.3 % (37-47); Hemoglobin 14.4 g/dL (12.0-16.0)
--- NOTE | 2020-09-23 15:28 | Hospitalist Progress Note ---
Date of Service September 23, 2020 Assessment & Plan (1) Localized swelling of both lower legs: Acute deep vein thrombosis -Venous Doppler:DVT identified within the proximal right peroneal vein. No DVT within the left lower extremity. -Lovenox held due to hematoma Discussed with orthopedics today (09/20/20) Was on IV heparin--patient understands risk for bleeding, agrees with current management Monitor H&H Hb Stable Repeat Venous doppler remains unchanged IV heparin transition to Lovenox Continue Coumadin 5mg today Monitor INR: 1.0 Right lower extremity hematoma Spontaneous while on SQ Lovenox Vasculitis could have contributed Currently no plan for surgical intervention Nonweightbearing on right lower extremity Appreciate Vascular surgery Input IVC filter not recommended at this time. Monitor CBC --Repeat Venous Doppler: No change in the DVT within the proximal right peroneal vein. No significant change in the complex subcutaneous fluid collection within the right calf. This favors a subcutaneous hematoma. 1-2 month ultrasound follow-up recommended to ensure resolution. --Monitor H&H Repeat ultrasound today shows slight increase in hematoma Hemoglobin stable If hemoglobin drops tomorrow, consider vascular surgery to reevaluate Chronic lower extremity edema History of vasculitis Follows with rheumatology as outpatient On chronic prednisone Currently on prednisone taper as per her [employer] As[employer] Possible Cellulitis Immunocompromised patient H/O vasculitis/Sjogren's syndrome on chronic steroid therapy Blood Culture:No growth to date Continue Doxycycline Day #5/7 Hypertension BP Stable Continue lisinopril Hypothyroidism Continue Synthroid Chronic anemia Past tobacco abuse Monitor CBC DVT Px: Lovenoox, coumadin Code Status Full Code Admission and Anticipated Discharge Date Admission Date: September 18, 2020 Subjective Patient is seen and examined at bedside States that her leg pain is slightly worse today which she attributes to positioning her leg during sleep Does not feel comfortable to be discharged home today Denies chest pain, shortness breath, dizziness, nausea, abdominal pain No other complaints Review of Systems Review of Systems: All systems reviewed & are unremarkable except as noted in HPI & below Physical Exam Physical Exam: Physical Exam: Vitals signs as noted above General Appearance:Moderately built and nourished, no apparent distress Head: normocephalic, Atraumatic Eyes: normal inspection, EOMI Neck: supple, Trachea midline Respiratory/Chest: Normal breath sounds, CTA Cardiovascular: S1, S2, No murmur Abdomen/GI:Soft, Non tender, Bowel sounds present Extremities/Musculoskeletal:normal inspection, B/L LE edema, RLE ecchymoses Neurologic/Psych:AAOX3, grossly no focal neurological deficits Skin: normal color, warm Results & Data Results & Data ([facility]) Vital Signs (Past 12 Hours) Vital Signs Temp Pulse Resp BP Pulse Ox 09/23/20 08:39 119/80 09/23/20 07:12 36.7 C 71 16 112/74 97 Laboratory Results Short CBC 09/22/20 09/23/20 09/23/20 Range/Units 15:49 05:54 14:39 WBC 9.36 (4.8-10.8) K/uL Hgb 12.9 12.1 14.4 (12.0-16.0) g/dL Hct 40.8 38.0 45.3 (37-47) % Plt Count 297 (130-400) K/uL [facility] 09/23/20 05:54 Creatinine 0.65
[2020-09-23] MEDS: ZINC SULFATE 220 MG CAPSULE PO SCH (16:53)
[2020-09-23] MEDS: VITAMIN A 25,000 UNIT CAP PO SCH (16:53)
[2020-09-23] MEDS: CHOLECALCIFEROL 1,000 UNITS 25 MCG TAB PO SCH (16:54)
[2020-09-23] MEDS: WARFARIN SOD 5 MG TAB PO SCH (16:54)
[2020-09-23] MEDS: ASCORBIC ACID 500 MG TAB PO SCH (16:54)
[2020-09-24] MEDS: [UNRECOGNIZED DRUG - OTHER] PO SCH (05:46)
[2020-09-24] MEDS: RESTASIS~ORDER AWAITING ACTION SCH ×2 (05:46→16:36)
[2020-09-24 06:08] LABS: Hematocrit (blood only) 39.7 % (37-47); Hemoglobin 12.6 g/dL (12.0-16.0); Mean Corpuscular Hemoglobin 30.3 pg (25-34); Mean Corpuscular Hgb Conc 31.7 g/dL (32-36); Mean Corpuscular Volume 95.4 fL (80-100); Mean Platelet Volume 9.9 fL (7.4-10.4); Platelet Count 314 K/uL (130-400); RDW Coefficient of Variation 13.6 % (11.5-14.5); RDW Standard Deviation 47.3 fL (36.4-46.3); Red Blood Count 4.16 M/uL (4.2-5.4); White Blood Count 10.09 K/uL (4.8-10.8)
[2020-09-24 06:21] LABS: INR 1.3 (0.9-1.1); Partial Thromboplastin Time 27.6 Seconds (21.0-31.0); Prothrombin Time 13.3 Seconds (9.0-12.0)
[2020-09-24 06:36] LABS: ANC (manual) 6.14 K/uL (1.4-6.5); Lymphocytes % (manual) 28.7 %; Metamyelocytes # (manual) 0.17 K/uL (0-0); Metamyelocytes % (manual) 1.7 %; Monocytes # (manual) 0.71 K/uL (0.11-0.59); Myelocytes # (manual) 0.17 K/uL (0-0); Myelocytes % (manual) 1.7 %; Neutrophils # (manual) 6.14 K/uL (1.4-6.5); Neutrophils % (manual) 60.9 %; RBC Morphology Unremarkable
[2020-09-24 06:44] LABS: BUN Creatinine Ratio 27.3 (10-20); Calcium 9.8 mg/dl (8.5-10.1); Est GFR (African American) 108.7 ml/min; Est GFR (Non-African American) 93.8 ml/min; Potassium 4.4 mmol/L (3.5-5.1)
[2020-09-24] MEDS: ACETAMINOPHEN 325 MG TAB PO PRN (07:41)
[2020-09-24] MEDS: ALOSETRON HCL 1 MG PO SCH ×2 (08:22→16:38)
[2020-09-24] MEDS: BUDESONIDE EC 3 MG CAP PO SCH (08:23)
[2020-09-24] MEDS: CALCIUM 600MG + VIT D 400 IU TAB PO SCH (08:23)
[2020-09-24] MEDS: DOXYCYCLINE HYCLATE 100 MG CAP PO SCH ×2 (08:24→16:38)
[2020-09-24] MEDS: lisinopril 20 MG TAB PO SCH (08:24)
[2020-09-24] MEDS: LOPERAMIDE HCL 2 MG CAP PO SCH ×2 (08:24→16:36)
[2020-09-24] MEDS: DIPHENOXYLATE/ATROPINE 2.5/0.025MG TAB PO SCH ×2 (08:24→16:35)
[2020-09-24] MEDS: methylPREDNISolone 4 MG TAB PO SCH (08:25)
[2020-09-24] MEDS: COLESTIPOL HCL 1 GM TAB PO SCH (10:14)
--- NOTE | 2020-09-24 10:14 | Hospitalist Progress Note ---
Date of Service September 24, 2020 Assessment & Plan (1) Localized swelling of both lower legs: Acute deep vein thrombosis -Venous Doppler:DVT identified within the proximal right peroneal vein. No DVT within the left lower extremity. -Lovenox held due to hematoma Discussed with orthopedics (09/20/20) Was on IV heparin--patient understands risk for bleeding, agrees with current management Monitor H&H Hb Stable Repeat Venous doppler remains unchanged IV heparin transition to Lovenox Continue Coumadin 5mg today Monitor INR: 1.0 Will need to be set up with anticoagulation clinic, DC with Lovenox for next 2 days Right lower extremity hematoma Spontaneous while on SQ Lovenox Vasculitis could have contributed Currently no plan for surgical intervention Nonweightbearing on right lower extremity Appreciate Vascular surgery Input IVC filter not recommended at this time. Monitor CBC --Repeat Venous Doppler: No change in the DVT within the proximal right peroneal vein. No significant change in the complex subcutaneous fluid collection within the right calf. This favors a subcutaneous hematoma. 1-2 month ultrasound follow-up recommended to ensure resolution. --Monitor H&H Repeat ultrasound shows slight increase in hematoma Hemoglobin stable Patient advised by orthopedics that it can take months for the hematoma to completely resorb. She can follow-up with Dr. York in his clinic 1 to 2 weeks after discharge. Please call [facility] [place] at [phone] to make an appointment. Chronic lower extremity edema History of vasculitis Follows with rheumatology as outpatient On chronic prednisone Currently on prednisone taper as per her [place] Possible Cellulitis Immunocompromised patient H/O vasculitis/Sjogren's syndrome on chronic steroid therapy Blood Culture:No growth to date Continue Doxycycline Day #08/25 Hypertension BP Stable Continue lisinopril Hypothyroidism Continue Synthroid Chronic anemia Past tobacco abuse Monitor CBC DVT Px: Lovenoox, coumadin Code Status Full Code Admission and Anticipated Discharge Date Admission Date: September 18, 2020 Subjective Patient is seen and examined at bedside Reports there is no change in the size or worsening pain of her right lower extremity She is inquiring about going home Denies chest pain, shortness breath, dizziness, nausea, abdominal pain No other complaints Review of Systems Review of Systems: All systems reviewed & are unremarkable except as noted in HPI & below Constitutional: no fever and no chills Respiratory: no cough and no dyspnea Cardiovascular: no chest pain and no palpitations Gastrointestinal: no abdominal pain, no nausea and no vomiting Physical Exam Physical Exam: General Appearance:Moderately built and nourished, no apparent distress Head: normocephalic, Atraumatic Eyes: normal inspection, EOMI Neck: supple, Trachea midline Respiratory/Chest: Normal breath sounds, CTA Cardiovascular: S1, S2, No murmur Abdomen/GI:Soft, Non tender, Bowel sounds present Extremities/Musculoskeletal:normal inspection, B/L LE edema, RLE ecchymoses Neurologic/Psych:AAOX3, grossly no focal neurological deficits Skin: normal color, warm Results & Data Results & Data ([facility]) Vital Signs (Past 12 Hours) Vital Signs Temp Pulse Pulse Resp BP BP Pulse Ox 09/24/20 07:23 36.6 C 72 16 98/66 L 98 09/23/20 22:25 36.6 C 79 16 95/60 L 97 Laboratory Results 09/24/20 09/24/20 09/24/20 Range/Units 05:57 05:57 05:57 WBC 10.09 (4.8-10.8) K/uL RBC 4.16 L (4.2-5.4) M/uL Hgb 12.6 (12.0-16.0) g/dL Hct 39.7 (37-47) % MCV 95.4 (80-100) fL MCH 30.3 (25-34) pg MCHC 31.7 L (32-36) g/dL RDW Std Deviation 47.3 H (36.4-46.3) fL RDW Coeff of Jovany 13.6 (11.5-14.5) % Plt Count 314 (130-400) K/uL MPV 9.9 (7.4-10.4) fL Neutrophils % (Manual) 60.9 % Lymphocytes % (Manual) 28.7 % Monocytes % (Manual) 7.0 % Metamyelocytes % (Man) 1.7 % Myelocytes % (Man) 1.7 % Neutrophils # (Manual) 6.14 (1.4-6.5) K/uL Total Absolute Neuts 6.14 (1.4-6.5) K/uL Lymphocytes # (Manual) 2.90 (1.2-3.4) K/uL Total Abs Lymphocytes 2.90 (1.2-3.4) K/uL Monocytes # (Manual) 0.71 H (0.11-0.59) K/uL Metamyelocytes # (Man) 0.17 H (0-0) K/uL Myelocytes # (Manual) 0.17 H (0-0) K/uL RBC Morphology Unremarkable PT 13.3 H (9.0-12.0) Seconds INR 1.3 H (0.9-1.1) APTT 27.6 (21.0-31.0) Seconds PTT Ratio 1.0 Sodium 142 (136-145) mmol/L Potassium 4.4 (3.5-5.1) mmol/L Chloride 110 H (98-107) mmol/L Carbon Dioxide 32 (21-32) mmol/L Anion Gap 0 L (3-11) BUN 18 (7-18) mg/dl Creatinine 0.65 (0.6-1.2) mg/dl Est Cr Clr Drug Dosing 66.0 ml/min Est GFR ( Amer) 108.7 ml/min Est GFR (Non-Af Amer) 93.8 ml/min BUN/Creatinine Ratio 27.3 H (10-20) Glucose 79 (70-99) mg/dl Calcium 9.8 (8.5-10.1) mg/dl 09/23/20 Range/Units 14:39 WBC (4.8-10.8) K/uL RBC (4.2-5.4) M/uL Hgb 14.4 (12.0-16.0) g/dL Hct 45.3 (37-47) % MCV (80-100) fL MCH (25-34) pg MCHC (32-36) g/dL RDW Std Deviation (36.4-46.3) fL RDW Coeff of Jovany (11.5-14.5) % Plt Count (130-400) K/uL MPV (7.4-10.4) fL Neutrophils % (Manual) % Lymphocytes % (Manual) % Monocytes % (Manual) % Metamyelocytes % (Man) % Myelocytes % (Man) % Neutrophils # (Manual) (1.4-6.5) K/uL Total Absolute Neuts (1.4-6.5) K/uL Lymphocytes # (Manual) (1.2-3.4) K/uL Total Abs Lymphocytes (1.2-3.4) K/uL Monocytes # (Manual) (0.11-0.59) K/uL Metamyelocytes # (Man) (0-0) K/uL Myelocytes # (Manual) (0-0) K/uL RBC Morphology PT (9.0-12.0) Seconds INR (0.9-1.1) APTT (21.0-31.0) Seconds PTT Ratio Sodium (136-145) mmol/L Potassium (3.5-5.1) mmol/L Chloride (98-107) mmol/L Carbon Dioxide (21-32) mmol/L Anion Gap (3-11) BUN (7-18) mg/dl Creatinine (0.6-1.2) mg/dl Est Cr Clr Drug Dosing ml/min Est GFR ( Amer) ml/min Est GFR (Non-Af Amer) ml/min BUN/Creatinine Ratio (10-20) Glucose (70-99) mg/dl Calcium (8.5-10.1) mg/dl Medications Administered Current Inpatient Medications Acetaminophen (Acetaminophen 325 Mg Tab) 650 mg PO Q4H PRN PRN Reason: pain/fever Stop: 10/18/20 04:29 Last Admin: 09/24/20 07:41 Dose: 650 mg Documented by: Alosetron HCl (Alosetron Hcl 1 Mg Tablet) 1 ea PO BID@0900,1700 [facility] Stop: 10/18/20 16:59 Last Admin: 09/24/20 08:22 Dose: 1 ea Documented by: Ascorbic Acid (Ascorbic Acid 500 Mg Tab) 500 mg PO Q24H [facility] Stop: 10/18/20 16:59 Last Admin: 09/23/20 16:54 Dose: 500 mg Documented by: Budesonide (Budesonide Ec 3 Mg Cap) 9 mg PO DAILY AMBER Stop: 10/18/20 08:59 Last Admin: 09/24/20 08:23 Dose: 9 mg Documented by: Calcium Carbonate (Calcium Carbonate 500 Mg Chewable Tab) 500 mg PO TID PRN PRN Reason: Indigestion Stop: 10/22/20 12:35 Colestipol HCl (Colestipol Hcl 1 Gm Tab) 1 gm PO DAILY@1000 AMBER Stop: 10/19/20 09:59 Last Admin: 09/23/20 09:53 Dose: 1 gm Documented by: Diphenoxylate HCl/Atropine (Diphenoxylate/Atropine 2.5/0.025mg Tab) 1 tab PO BID@0900,1700 [facility] Stop: 10/18/20 16:59 Last Admin: 09/24/20 08:24 Dose: 1 tab Documented by: Doxycycline Hyclate (Doxycycline Hyclate 100 Mg Cap) 100 mg PO BID [facility] Stop: 09/25/20 20:59 Last Admin: 09/24/20 08:24 Dose: 100 mg Documented by: Enoxaparin Sodium (Enoxaparin 80 Mg/0.8 Ml Syr) 80 mg SQ Q24H [facility] Stop: 10/22/20 12:29 Last Admin: 09/23/20 13:43 Dose: 80 mg Documented by: Promethazine HCl 12.5 mg/ (Sodium Chloride) 50.5 mls @ 202 mls/hr IV Q6H PRN PRN Reason: Nausea And Vomiting Stop: 10/18/20 04:29 Levothyroxine Sodium (Brand Name Synthroid 75 Mcg Tablet) [facility]cg [facility] Stop: 10/19/20 06:29 Last Admin: 09/24/20 05:46 Dose: 75 mcg Documented by: Lisinopril (Lisinopril 20 Mg Tab) 20 mg PO DAILY [facility] Stop: 10/19/20 08:59 Last Admin: 09/24/20 08:24 Dose: Not Given Documented by: Loperamide HCl (Loperamide Hcl 2 Mg Cap) 2 mg PO BID@0900,1700 [facility] Stop: 10/18/20 16:59 Last Admin: 09/24/20 08:24 Dose: 2 mg Documented by: Methylprednisolone (Methylprednisolone 4 Mg Tab) 4 mg PO DAILY [facility] Stop: 10/23/20 08:59 Last Admin: 09/24/20 08:25 Dose: 4 mg Documented by: Miscellaneous (Restasis~Order Awaiting Action) 1 ea N/A QS [facility] Stop: 10/18/20 07:59 Last Admin: 09/24/20 05:46 Dose: Not Given Documented by: Multivitamins/Minerals (Calcium 600mg + Vit D 400 Iu Tab) 1 tab PO BID [facility] Stop: 10/18/20 08:59 Last Admin: 09/24/20 08:23 Dose: 1 tab Documented by: Simethicone (Simethicone 80 Mg Chew) 120 mg PO DAILY PRN PRN Reason: Indigestion Stop: 10/18/20 04:39 Tramadol HCl (Tramadol Hcl 50 Mg Tablet) 25 - 50 mg PO Q4H PRN PRN Reason: Pain Stop: 10/18/20 04:29 Vitamin A (Vitamin A 25,000 Unit Cap) 25,000 units PO Q24H [facility] Stop: 10/18/20 16:59 Last Admin: 09/23/20 16:53 Dose: 25,000 units Documented by: Vitamin D (Cholecalciferol 1,000 Units 25 Mcg Tab) 1,000 units PO Q24H [facility] Stop: 10/18/20 16:59 Last Admin: 09/23/20 16:54 Dose: 1,000 units Documented by: Warfarin Sodium (Warfarin Sod 5 Mg Tab) 5 mg PO DAILY@1600 [facility] Stop: 10/22/20 15:59 Last Admin: 09/23/20 16:54 Dose: 5 mg Documented by: Zinc Sulfate (Zinc Sulfate 220 Mg Capsule) 220 mg PO Q24H [facility] Stop: 10/18/20 16:59 Last Admin: 09/23/20 16:53 Dose: 220 mg Documented by:
--- NOTE | 2020-09-24 10:53 | Discharge Summary ---
Date of Service September 24, 2020 Admission HPI Per Admitting Provider History obtained from patient, family, and records. Medical history significant for hypertension, hypothyroidism, vasculitis, Sjogren's syndrome on chronic steroid Rx, collagenous colitis as per records, chronic anemia (baseline hemoglobin of 11), traumatic RLE wound, past tobacco abuse. Last confinement 2011 for sepsis secondary to community-acquired pneumonia. Patient sustained traumatic wound on right lower leg after hitting a cardboard box last February,. Decreased mobility since injury as per patient. Periodic outpatient visits at the wound care center. Slowly RLE wound healing as per patient and . 2 weeks ago, patient noted bilateral leg swelling right greater than the left without fever/chills/chest pain/S OB. Patient not sure about the weight gain. Wound care center provider concerns about vasculitis relapse during last visit last week. 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 Worsening leg swelling and pain noted yesterday by patient. Patient brought to the ER by for evaluation. Medical History as above Surgical History : Laser brachioplasty, laparoscopic abdominal tumor removal, cataract surgeries Family History : Heart disease, kidney stones Personal/Social history : Past tobacco abuse, no EtOH intake, office work Admission Exam Per Admitting Provider GENERAL: Comfortable, pleasant, no respiratory distress SKIN: Normal color, warm HEENT: [place] palpebral conjunctivae, no ptosis, dry buccal mucosa NECK : Supple, no tenderness CHEST : CTA, no tenderness HEART : RRR, no obvious murmurs ABDOMEN: Some distention, nontender EXTREMITIES : Bilateral LE swelling/tenderness, LLE more erythematous than RLE, dressing RLE, no other conspicuous deformities noted NEUROLOGIC : Coherent, no facial asymmetry, no other gross focality Principal Diagnosis Right lower extremity DVT, right lower extremity hematoma Discharge Exam General Appearance:Moderately built and nourished, no apparent distress Head: normocephalic, Atraumatic Eyes: normal inspection, EOMI Neck: supple, Trachea midline Respiratory/Chest: Normal breath sounds, CTA Cardiovascular: S1, S2, No murmur Abdomen/GI:Soft, Non tender, Bowel sounds present Extremities/Musculoskeletal:normal inspection, B/L LE edema, RLE ecchymoses Neurologic/Psych:AAOX3, grossly no focal neurological deficits Skin: normal color, warm Discharge Data Allergies Allergy/AdvReac Type Severity Reaction Status Date / Time amoxicillin [From Augmentin] AdvReac Intermediate Vomiting Verified 09/18/20 04:38 clavulanic acid AdvReac Intermediate Vomiting Verified 09/18/20 04:38 [From Augmentin] sulfamethoxazole AdvReac Intermediate NAUSEA/VOMI Verified 09/18/20 04:38 TING trimethoprim AdvReac Intermediate NAUSEA/VOMI Verified 09/18/20 04:38 TING cephalexin [From Keflex] AdvReac Mild Nausea Verified 09/18/20 04:38 Consultations 09/18/20 00:59 ED Decision to Admit Stat 09/19/20 13:51 Consult Orthopedic Surgery Routine 09/19/20 13:58 Consult Vascular Surgery Routine Ordered Studies 09/17/20 22:33 US venous doppler LE BI Urgent IMPRESSION: 1. DVT identified within the proximal right peroneal vein. 2. No DVT within the left lower extremity. 09/19/20 12:35 US extremity nonvascular Urgent IMPRESSION: 1. The palpable mass within the left calf corresponds to a 8.4 x 1.5 x 4.6 cm complex hypoechoic mass which abuts the superficial fascia of the muscular bundle. This lesion statistically represents a hematoma. Clinical and/or imaging follow-up recommended 09/21/20 07:00 US venous doppler LE RT Routine IMPRESSION: 1. No change in the DVT within the proximal right peroneal vein. 2. No significant change in the complex subcutaneous fluid collection within the right calf. This favors a subcutaneous hematoma. 1-2 month ultrasound follow-up recommended to ensure resolution. 09/23/20 07:00 US extremity non-vascular ltd Routine IMPRESSION: Mildly increased size of the probable hematoma of the right calf now measuring up to 9.8 cm. Continued follow-up recommended. Hospital Course (1) Localized swelling of both lower legs: Acute deep vein thrombosis -Venous Doppler:DVT identified within the proximal right peroneal vein. No DVT within the left lower extremity. -Lovenox held due to hematoma Discussed with orthopedics (09/20/20) Was on IV heparin--patient understands risk for bleeding, agrees with current management Monitor H&H Hb Stable Repeat Venous doppler remains unchanged IV heparin transition to Lovenox Continue Coumadin 5mg today Monitor INR: 1.0 Will need to be set up with anticoagulation clinic, DC with Lovenox for next 2 days Right lower extremity hematoma Spontaneous while on SQ Lovenox Vasculitis could have contributed Currently no plan for surgical intervention Nonweightbearing on right lower extremity Appreciate Vascular surgery Input IVC filter not recommended at this time. Monitor CBC --Repeat Venous Doppler: No change in the DVT within the proximal right peroneal vein. No significant change in the complex subcutaneous fluid collection within the right calf. This favors a subcutaneous hematoma. 1-2 month ultrasound follow-up recommended to ensure resolution. --Monitor H&H Repeat ultrasound shows slight increase in hematoma Hemoglobin stable Follow-up ultrasound recommended Patient advised by orthopedics that it can take months for the hematoma to completely resorb. She can follow-up with Dr. York in his clinic 1 to 2 weeks after discharge. Please call [facility] at [phone] to make an appointment. Chronic lower extremity edema History of vasculitis Follows with rheumatology as outpatient On chronic prednisone Currently on prednisone taper as per her [place] Possible Cellulitis Immunocompromised patient H/O vasculitis/Sjogren's syndrome on chronic steroid therapy Blood Culture:No growth to date Continue Doxycycline Day #6 Hypertension BP Stable Continue lisinopril Hypothyroidism Continue Synthroid Chronic anemia Past tobacco abuse Monitor CBC DVT Px: Lovenoox, coumadin Code Status Full Code Total Time Total Time Spent Total Time Spent (In Minutes): 40 Total Time Includes: Examination of the Patient, Discharge Planning and Medication Reconciliation Discharge Plan Discharge Items Patient Disposition: Home - Self-Care Reason For Visit: DVT, CELLULITIS Discharge Diagnosis: Right lower extremity DVT, right lower extremity hematoma Activity: Per Instructions section Activity Comment: Rest, no weightbearing, elevation and ice to right lower extremity Non-emergency contact: Primary Care Provider Call non-emergency contact if: you have any medication questions and your symptoms worsen Follow-up/Referrals: Alexx Sepulveda DO [Primary Care Provider] - (Date & Time 09/26/2020 1:40 PM Provider Alexx Sepulveda DO Department [facility] ) Diet: Heart Healthy Addtl Attending Provider Instructions: Follow-up with primary care doctor, the appointment is scheduled for you for September 26, 2020. Use Lovenox injections (blood thinner) for next 2 days. You will need to be set up with anticoagulation clinic, you will be contacted about that. As discussed blood work, INR, will need to be checked. Take warfarin (blood thinner pill) 5 mg daily until you are advised otherwise by your primary care doctor or anticoagulation clinic provider. Take doxycycline twice a day, for 1 more day to finish the treatment. Do not take lisinopril for next 2 days, until you see your primary care doctor on Tuesday. If you can, monitor your blood pressure at home and record these numbers. Discuss with your primary care doctor about restarting lisinopril. For hematoma, you can follow-up with Dr. York (orthopedics) in his clinic 1 to 2 weeks after discharge. Please call [facility] [place] at [phone] to make an appointment. Pending Studies at Discharge: No Stand-Alone Forms: My [facility] [place], Smoking Cessation Medications and DC Order Prescriptions: New enoxaparin [Lovenox] 80 mg/0.8 mL Syringe 80 mg subcut Q24H 2 Days Qty: 1.6 RF: 0 doxycycline hyclate 100 mg Capsule 100 mg PO BID Qty: 2 RF: 0 warfarin 5 mg Tablet 5 mg PO DAILY@1600 Qty: 20 RF: 0 Continued cholecalciferol (vitamin D3) 1,000 unit capsule 1,000 units PO DAILY RF: 0 cyclosporine [Restasis MultiDose] 0.05 % drops 1 drops OP Q12H RF: 0 alosetron [Lotronex] 1 mg tablet 1 mg PO BID RF: 0 methylprednisolone [Medrol] 4 mg tablet 4 mg PO DAILY RF: 0 diphenoxylate-atropine [Lomotil] 2.5-0.025 mg tablet 1 tab PO BID RF: 0 colestipol [Colestid] 1 gram tablet 1 gm PO DAILY RF: 0 lisinopril 20 mg tablet 20 mg PO DAILY RF: 0 levothyroxine [Synthroid] 75 mcg tablet 75 mcg PO .COMPLEX Qty: 30 RF: 5 Prolia 60 mg/mL syringe 60 mg SQ .COMPLEX RF: 0 Excedrin Migraine 250-250-65 mg tablet 2 tab PO Q6H PRN (Reason: Headache) RF: 0 budesonide 9 mg tablet,delayed and ext.release 9 mg PO DAILY RF: 0 calcium carbonate-vitamin D3 600 mg(1,500mg) -200 unit tablet 1 tab PO BID RF: 0 loperamide [Imodium A-D] 2 mg capsule 2 mg PO BID RF: 0 simethicone [Gas-X Extra Strength] 125 mg capsule 125 mg PO DIRECTED PRN (Reason: Indigestion) RF: 0 vitamin A 10,000 unit Capsule 2,400 unit PO DAILY RF: 0 ascorbic acid (vitamin C) [Vitamin C] 500 mg Tablet 500 mg PO DAILY RF: 0 zinc 50 mg Tablet 50 mg PO DAILY RF: 0 Discontinued Pepto-Bismol 262 mg tablet 1 tab PO BID RF: 0 Discharge Orders: Discharge Order (Routine); Ordered 09/24/20 Ordered By: Roland Lira/Other Patient Handouts: Understanding Deep Vein Thrombosis, What to Know When TakingWarfarin, International Normalized Ratio, aPTT, Prothrombin Time Admission Data Admit Date/Time: 09/18/20 14:26 Attending Provider: Roland Sherwood Admit Provider: Anatoliy Bill Primary Care Provider: Alexx Sepulveda Other Providers: Anatoliy Bill ; Shashi Dennison ; Jamie York ; Sanju Reagan ; Yocasta Douglas ; Param Chappell ; Bethany Noonan ; Kin Quinonez ; Shaw Mack ; Pavan Bustos Andrew J. ; Shaw Adams ; Siddharth Cali ; Roosevelt Marino ; Cristiano Oconnor ; Alexei Grimm ; Bethany Junior ; Kade August ; Bo Rodney ; Ruthy Hunter John ; Sanaz Pennington ; Mack Piedra ; Matthew Roa
[2020-09-24] MEDS: ENOXAPARIN 80 MG/0.8 ML SYR SQ SCH (13:37)
[2020-09-24] MEDS: WARFARIN SOD 5 MG TAB PO SCH (16:36)
[2020-09-24] MEDS: CHOLECALCIFEROL 1,000 UNITS 25 MCG TAB PO SCH (16:36)
[2020-09-24] MEDS: ZINC SULFATE 220 MG CAPSULE PO SCH (16:37)
[2020-09-24] MEDS: VITAMIN A 25,000 UNIT CAP PO SCH (16:37)
[2020-09-24] MEDS: ASCORBIC ACID 500 MG TAB PO SCH (17:07)
== END 2020-09-24 17:52 | disposition home or self-care (01) | DRG 300 ==
LOC: ED 21:30 → 3N 21:30 → SUATTDRO 09-18 14:26

== ENCOUNTER 2021-05-10 16:21 | Inpatient (IN) ==
--- NOTE | 2021-05-10 16:56 | Emergency Department Note ---
History of Present Illness General Chief complaint: Foot Injury/Pain Stated complaint: L FOOT RED SWOLLEN, HAD INJURY ON L LEG PREVIOUSLY Time Seen by Provider: 05/10/21 16:28 Source: patient and family (Spouse who is at the bedside) Mode of arrival: ambulatory Limitations: no limitations History of Present Illness Maximum Pain Intensity: 7 This patient is a 85-year-old female who comes in with redness swelling and pain of her left foot. She has a history of poor wound healing and she is on Coumadin for history of DVT. She said that she injured her left leg car door on April 10. She said she had a large hematoma that started drain itself and she had a further debrided the wound clinic on 1216 she is not on antibiotics. She said over the last day or so she has had redness and swelling. No systemic complaints no fever chills she has had the COVID vaccine and booster. No chest pain shortness breath or abdominal pain she has been eating and drinking okay. She is on Coumadin. She does have multiple antibiotic sensitivities but says she does well with doxycycline typically Home Medications Medication Instructions Recorded Confirmed Type cholecalciferol (vitamin D3) 25 1,000 units PO DAILY 11/16/17 05/10/21 History mcg (1,000 unit) capsule methylprednisolone 4 mg tablet 4 mg PO BID tab 11/13/18 05/10/21 History (Medrol) budesonide 9 mg tablet,delayed and 9 mg PO DAILY 11/22/18 05/10/21 History extended release simethicone 125 mg capsule (Gas-X 125 mg PO DIRECTED PRN cap 07/01/20 05/10/21 History Extra Strength) ascorbic acid (vitamin C) 500 mg 500 mg PO DAILY 09/17/20 05/10/21 History tablet (Vitamin C) vitamin A 10,000 unit capsule 2,400 unit PO DAILY 09/17/20 05/10/21 History zinc 50 mg tablet 50 mg PO DAILY 09/17/20 05/10/21 History alosetron 1 mg tablet (Lotronex) 1 mg PO BID 11/29/20 05/10/21 History furosemide 20 mg tablet 20 mg PO BID 11/29/20 05/10/21 History oxycodone 5 mg tablet (Roxicodone) 5 mg PO Q8H PRN #9 tab 11/29/20 05/10/21 Rx warfarin 1 mg tablet See Rx Instructions .ROUTE .COMPLEX 11/29/20 05/10/21 History diphenoxylate-atropine 2.5 1 tab PO BID tab 01/02/21 05/10/21 History mg-0.025 mg tablet (Lomotil) Synthroid 75 mcg tablet 75 mcg PO .COMPLEX #30 tab NS 02/03/21 05/10/21 Rx (levothyroxine) acetaminophen 500 mg tablet 500 mg PO Q6H PRN 05/07/21 05/10/21 History (Tylenol Extra Strength) calcium carbonate 600 mg-vitamin 1 tab PO DAILY tab 05/07/21 05/10/21 History D3 5 mcg (200 unit) tablet gabapentin 100 mg capsule 100 mg PO BID 05/07/21 05/10/21 History Allergies Allergy/AdvReac Type Severity Reaction Status Date / Time amoxicillin [From Augmentin] AdvReac Intermediate Vomiting Verified 05/10/21 17:52 clavulanic acid AdvReac Intermediate Vomiting Verified 05/10/21 17:52 [From Augmentin] sulfamethoxazole AdvReac Intermediate NAUSEA/VOMI Verified 05/10/21 17:52 TING trimethoprim AdvReac Intermediate NAUSEA/VOMI Verified 05/10/21 17:52 TING cephalexin [From Keflex] AdvReac Mild Nausea Verified 05/10/21 17:52 Past Med/Surg History Medical History Colitis Surinder's disease Hypothyroidism Migraine headache Osteopenia Polyarthritis Sjogrens syndrome Vasculitis Surgical History H/O detached retina repair History of laparoscopy Hx of cataract surgery both eyes Hx of dilation and curettage Hx of wisdom tooth extraction Family History Mother Rheumatic heart disease Bacterial endocarditis Father Gout Social History Smoking Status: Former smoker Tobacco Type: Cigarettes Second Hand Exposure: No; Hx Alcohol Use: No Hx Substance Use: No Preferred Language: Mauritian Communication Ability: Effective Senior Clinical Data Manager Required: No Beliefs That Will Affect Care: None Current Living Situation: Spouse Current Living Situation Comment: Lives at home with Feels Safe at Home: Yes Assistive Devices: Walker Review of Systems A total of 10 systems reviewed and were otherwise negative Physical Exam Vital Signs Vital Signs - 24 hr 05/10/21 16:23 05/10/21 17:57 05/10/21 18:00 Temperature 36.4 C L Temperature Source Temporal Artery Scan Pulse Rate 103 H Pulse Rate [Right Finger] 83 Pulse Rhythm [Right Finger] Regular Pulse Strength [Right Finger] Normal Respiratory Rate 18 18 Respiratory Effort / Characteristics Non-Labored Respiratory Depth Normal Respiratory Pattern Regular Blood Pressure 187/99 H Blood Pressure [Left Arm] 143/90 H Blood Pressure Mean 128 Blood Pressure Mean [Left Arm] 107 Blood Pressure Position [Left Arm] Pulse Oximetry 98 98 Oxygen Delivery Method Room Air Room Air Room Air Sepsis Recent Fever Within 48 Hours No Sepsis New/Unexplained Change in Mental Status No Sepsis Action Taken by Nursing No Action Required 05/10/21 20:00 Temperature Temperature Source Pulse Rate Pulse Rate [Right Finger] 83 Pulse Rhythm [Right Finger] Regular Pulse Strength [Right Finger] Normal Respiratory Rate 18 Respiratory Effort / Characteristics Non-Labored Respiratory Depth Normal Respiratory Pattern Regular Blood Pressure Blood Pressure [Left Arm] 135/83 Blood Pressure Mean Blood Pressure Mean [Left Arm] 100 Blood Pressure Position [Left Arm] Lying Pulse Oximetry 97 Oxygen Delivery Method Sepsis Recent Fever Within 48 Hours Sepsis New/Unexplained Change in Mental Status Sepsis Action Taken by Nursing General: Well developed well nourished not ill-appearing older female who appears in no acute distress, breathing comfortably on room air. Normal speech HEENT: Normal cephalic atraumatic. Pupils are equal round and reactive to light. Extraocular movements are intact. Oropharynx is pink with moist mucous membranes. No swelling of the mouth lips or tongue. Neck: Supple with a midline trachea. No meningeal signs or stiffness, no JVD or bruits. No Stridor. Chest: Clear to auscultation bilaterally. No wheezes or rhonchi. No increased work of breathing. Heart: Regular rate and rhythm without murmurs or gallops. Abdomen: Soft nontender, nondistended without rebound guarding or rigidity. Extremities: No cyanosis clubbing. She does have a wound in the left quach there is some mild red discoloration around it and into the foot and into the quach it is diffusely red it is slightly warm. There is good distal pulses in the foot. She does have edema in the foot. No calf tenderness or assymetry. She has some bruising in her right ankle from where she said they put a blood pressure cuff the other day. No crepitus in the leg. No significant pain. Spine/Back. Non tender to palpation. No CVA tenderness Skin: Good turgor without rashes. Neurologic exam: Cranial nerves two through 12 are intact. Motor and sensation are intact and symmetrical throughout. Course Administered Medications Discontinued Medications Ceftriaxone Sodium (Rocephin) 1,000 mg in 50 mls @ 100 mls/hr IV NOW STA Stop: 05/10/21 18:54 Last Infusion: 05/10/21 19:32 Dose: 0 mls/hr Documented by: [id number] Admin: 05/10/21 18:55 Dose: 100 mls/hr Documented by: [id number] Medical Decision Making Differential Diagnosis Cellulitis, DVT, wound infection, hematoma, sepsis, electrolyte or metabolic abnormality Medical Records Attestation: I reviewed the patient's medical records. Home Medications Current Medication List: was personally reviewed by me Laboratory Data Attestation: I reviewed the patient's lab results. Result diagrams: 05/10/21 17:12 05/10/21 18:15 Lab Results 05/10/21 05/10/21 05/10/21 Range/Units 17:12 17:12 17:12 WBC 14.32 H (4.8-10.8) K/uL RBC 4.35 (4.2-5.4) M/uL Hgb 12.5 (12.0-16.0) g/dL Hct 40.4 (37-47) % MCV 92.9 (80-100) fL MCH 28.7 (25-34) pg MCHC 30.9 L (32-36) g/dL RDW Std Deviation 50.0 H (36.4-46.3) fL RDW Coeff of Jovany 14.7 H (11.5-14.5) % Plt Count 357 (130-400) K/uL MPV 9.6 (7.4-10.4) fL Immature Gran % (Auto) 0.3 % Neut % (Auto) 85.4 % Lymph % (Auto) 6.4 % [place] % (Auto) 7.8 % Eos % (Auto) 0.0 % Baso % (Auto) 0.1 % Neut # (Auto) 12.23 H (1.4-6.5) K/uL Lymph # (Auto) 0.91 L (1.2-3.4) K/uL [place] # (Auto) 1.12 H (0.11-0.59) K/uL Eos # (Auto) 0.00 (0-0.5) K/uL Baso # (Auto) 0.02 (0-0.2) K/uL Immature Gran # (Auto) 0.04 H (0.00-0.02) K/uL PT Cancelled INR Cancelled APTT Cancelled PTT Ratio Cancelled Sodium Cancelled Potassium Cancelled Chloride Cancelled Carbon Dioxide Cancelled Anion Gap Cancelled BUN Cancelled Creatinine Cancelled Est Cr Clr Drug Dosing Cancelled Est GFR ( Amer) Cancelled Est GFR (Non-Af Amer) Cancelled BUN/Creatinine Ratio Cancelled Glucose Cancelled Lactate (0.4-2.0) mmol/L Calcium Cancelled Magnesium Cancelled Total Bilirubin Cancelled AST Cancelled ALT Cancelled Alkaline Phosphatase Cancelled Total Protein Cancelled Albumin Cancelled Globulin Cancelled Albumin/Globulin Ratio Cancelled SARS-CoV-2, RNA, NAAT (NEGATIVE) 05/10/21 05/10/21 05/10/21 Range/Units 17:12 18:15 18:15 WBC (4.8-10.8) K/uL RBC (4.2-5.4) M/uL Hgb (12.0-16.0) g/dL Hct (37-47) % MCV (80-100) fL MCH (25-34) pg MCHC (32-36) g/dL RDW Std Deviation (36.4-46.3) fL RDW Coeff of Jovany (11.5-14.5) % Plt Count (130-400) K/uL MPV (7.4-10.4) fL Immature Gran % (Auto) % Neut % (Auto) % Lymph % (Auto) % [place] % (Auto) % Eos % (Auto) % Baso % (Auto) % Neut # (Auto) (1.4-6.5) K/uL Lymph # (Auto) (1.2-3.4) K/uL [place] # (Auto) (0.11-0.59) K/uL Eos # (Auto) (0-0.5) K/uL Baso # (Auto) (0-0.2) K/uL Immature Gran # (Auto) (0.00-0.02) K/uL PT 16.9 H INR 1.7 H APTT 40.6 H PTT Ratio 1.5 Sodium 141 Potassium 3.5 Chloride 103 Carbon Dioxide 29 Anion Gap 9 BUN 11 Creatinine 0.61 Est Cr Clr Drug Dosing 66.9 Est GFR ( Amer) 111.0 Est GFR (Non-Af Amer) 95.8 BUN/Creatinine Ratio 18.0 Glucose 89 Lactate 0.8 (0.4-2.0) mmol/L Calcium 10.3 H Magnesium 2.0 Total Bilirubin 0.6 AST 19 ALT 13 Alkaline Phosphatase 60 Total Protein 8.1 Albumin 4.6 Globulin 3.5 Albumin/Globulin Ratio 1.3 SARS-CoV-2, RNA, NAAT (NEGATIVE) 05/10/21 Range/Units 18:48 WBC (4.8-10.8) K/uL RBC (4.2-5.4) M/uL Hgb (12.0-16.0) g/dL Hct (37-47) % MCV (80-100) fL MCH (25-34) pg MCHC (32-36) g/dL RDW Std Deviation (36.4-46.3) fL RDW Coeff of Jovany (11.5-14.5) % Plt Count (130-400) K/uL MPV (7.4-10.4) fL Immature Gran % (Auto) % Neut % (Auto) % Lymph % (Auto) % [place] % (Auto) % Eos % (Auto) % Baso % (Auto) % Neut # (Auto) (1.4-6.5) K/uL Lymph # (Auto) (1.2-3.4) K/uL [place] # (Auto) (0.11-0.59) K/uL Eos # (Auto) (0-0.5) K/uL Baso # (Auto) (0-0.2) K/uL Immature Gran # (Auto) (0.00-0.02) K/uL PT INR APTT PTT Ratio Sodium Potassium Chloride Carbon Dioxide Anion Gap BUN Creatinine Est Cr Clr Drug Dosing Est GFR ( Amer) Est GFR (Non-Af Amer) BUN/Creatinine Ratio Glucose Lactate (0.4-2.0) mmol/L Calcium Magnesium Total Bilirubin AST ALT Alkaline Phosphatase Total Protein Albumin Globulin Albumin/Globulin Ratio SARS-CoV-2, RNA, NAAT NEGATIVE (NEGATIVE) Imaging Data Radiologist's Impression: Venous Doppler Study 05/10/21 16:48 LEFT LOWER EXTREMITY VENOUS DOPPLER HISTORY: Acute pain and swelling of the left lower leg eval for dvt COMPARISON STUDY: Doppler study 09/17/2020 FINDINGS: There is normal compressibility, flow, and augmentation within the left lower extremity deep venous system. IMPRESSION: No DVT within the left lower extremity. ACT 112: Negative or not required by law. Electronically signed by: Yoan William M.D. 05/10/2021 6:03 PM MDM Narrative This patient comes in as described above she has a history of wound healing issues as well as DVTs. She has a wound in her left leg that was recently debrided I think she does have a secondary cellulitis at this point. I did an ultrasound to rule out DVT. IV access was established. Blood work was obtained including blood cultures and inflammatory markers. I talked to the patient initially about admission she strongly desires to go home and I told her we would get the blood work and work-up first then. I did talk to her at length her white count is elevated at 14. she is on steroids and immunocompromise and has history of poor wound healing I think in light of this she should have IV a ntibiotics the area is red and I think she has a secondary infection. She was given IV Rocephin 1 g reviewing her record she has had this before without any apparent difficulties. Ultrasound was negative for DVT. Lactic acid is not significantly elevated therefore sepsis would be unlikely she has no acute electrolyte or metabolic abnormalities. She is willing to stay and I have consulted the [facility] hospitalist to see in the ER for these measures. Impression & Plan Cellulitis, Localized swelling of both lower legs, Leg pain, left, Chronic steroid use, Lab test negative for COVID-19 virus Discharge Plan Visit Data Chief Complaint: Foot Injury/Pain Stated Complaint: L FOOT RED SWOLLEN, HAD INJURY ON L LEG PREVIOUSLY ED Provider: Vargas Vazquez Discharge Problem: Cellulitis, Localized swelling of both lower legs, Leg pain, left, Chronic steroid use, Lab test negative for COVID-19 virus Patient Disposition: Admitted As Inpatient Discharge Instructions Interventions: ED Discharge Assessment Last Done: 05/10/21 20:41 Discharge Problem: Cellulitis Qualifiers: Site of cellulitis: extremity Site of cellulitis of extremity: lower extremity Laterality: left Qualified Code(s): L03.116 - Cellulitis of left lower limb
[2021-05-10 17:26] LABS: Basophils # (auto) 0.02 K/uL (0-0.2); Basophils % (auto) 0.1 %; Hematocrit (blood only) 40.4 % (37-47); Hemoglobin 12.5 g/dL (12.0-16.0); Immature Granulocytes # (auto) 0.04 K/uL (0.00-0.02); Immature Granulocytes % (auto) 0.3 %; Lymphocytes # (auto) 0.91 K/uL (1.2-3.4); Lymphocytes % (auto) 6.4 %; Mean Corpuscular Hemoglobin 28.7 pg (25-34); Mean Corpuscular Hgb Conc 30.9 g/dL (32-36); Mean Corpuscular Volume 92.9 fL (80-100); Mean Platelet Volume 9.6 fL (7.4-10.4); Monocytes # (auto) 1.12 K/uL (0.11-0.59); Monocytes % (auto) 7.8 %; Neutrophils # (auto) 12.23 K/uL (1.4-6.5); Neutrophils % (auto) 85.4 %; Platelet Count 357 K/uL (130-400); RDW Coefficient of Variation 14.7 % (11.5-14.5); Red Blood Count 4.35 M/uL (4.2-5.4); White Blood Count 14.32 K/uL (4.8-10.8)
--- NOTE | 2021-05-10 18:04 | Ultrasound Report ---
LEFT LOWER EXTREMITY VENOUS DOPPLER HISTORY: Acute pain and swelling of the left lower leg eval for dvt COMPARISON STUDY: Doppler study 09/17/2020 FINDINGS: There is normal compressibility, flow, and augmentation within the left lower extremity mitul p venous system. IMPRESSION: No DVT within the left lower extremity. ACT 112: Negative or not required by law. Electronically signed by: Yoan William M.D. 05/10/2021 6:03 PM
[2021-05-10] MEDS ORDERED: cefTRIAXone SODIUM 1,000 MG/50 ML BAG IV STA (18:25)
[2021-05-10 18:36] LABS: INR 1.7 (0.9-1.1); Partial Thromboplastin Ratio 1.5; Partial Thromboplastin Time 40.6 Seconds (21.0-31.0); Prothrombin Time 16.9 Seconds (9.0-12.0)
[2021-05-10 18:47] LABS: Albumin Globulin Ratio 1.3 (0.9-2); Albumin Level 4.6 gm/dl (3.4-5.0); Bilirubin,Total 0.6 mg/dl (0.2-1.0); Calcium 10.3 mg/dl (8.5-10.1); Creatinine Clr Calc Pharmacy 66.9 ml/min; Est GFR (Non-African American) 95.8 ml/min; Globulin 3.5 gm/dl (2.5-4.0); Potassium 3.5 mmol/L (3.5-5.1); Total Protein 8.1 gm/dl (6.0-8.3)
[2021-05-10] MEDS ORDERED: PIPERACILL/TAZOBAC CONSULT ACTIVE PRN (21:05)
[2021-05-10] MEDS ORDERED: SIMETHICONE 80 MG CHEW PO PRN (21:05)
[2021-05-10] MEDS ORDERED: WARFARIN SOD 1 MG TAB PO SCH (21:05)
[2021-05-10] MEDS ORDERED: VANCOMYCIN CONSULT ACTIVE PRN (21:05)
[2021-05-10] MEDS ORDERED: POLYETHYLENE (MIRALAX) 17 GM PACK PO PRN (21:05)
[2021-05-10] MEDS ORDERED: ONDANSETRON INJ 2 MG/ML 2 ML VIAL IV PRN (21:05)
[2021-05-10] MEDS ORDERED: PIPERACILLIN/TAZOBACTAM 3.375 GM in DEXTROSE 5% 100 ML IV ONE (21:30)
[2021-05-10] MEDS: GABAPENTIN 100 MG CAP PO SCH (21:57)
[2021-05-10] MEDS: methylPREDNISolone 4 MG TAB PO SCH (21:57)
[2021-05-10] MEDS: FUROSEMIDE 20 MG TAB PO SCH (21:58)
[2021-05-10] MEDS: DIPHENOXYLATE/ATROPINE 2.5/0.025MG TAB PO SCH (21:58)
[2021-05-10] MEDS ORDERED: VANCOMYCIN HCL 1,250 MG in SODIUM CHLORIDE 0.9% 250 ML IV ONE (22:00)
[2021-05-10] MEDS: ACETAMINOPHEN 325 MG TAB PO PRN (22:31)
[2021-05-10] MEDS: BISMUTH SUBSALICYLATE SUSP PO PRN (22:33)
[2021-05-10] MEDS: HEPARIN SOD 5,000 UNIT/0.5 ML VIAL SQ SCH (22:36)
--- NOTE | 2021-05-10 23:28 | History and Physical Report ---
DATE OF ADMISSION: 05/10/2021. CHIEF COMPLAINT: Left lower extremity wound. HISTORY OF PRESENT ILLNESS: A 65-year-old female with past medical history significant for hypothyroidism, allergic rhinitis, history of vasculitis of skin, DVT, irritable bowel syndrome, collagenous colitis, inflammatory polyarthritis, senile osteoporosis, degenerative disk disease, migraine, benign positional vertigo, sensory neuropathy, Sjogren syndrome, long-term use of steroids, who presents with left lower extremity wound. The patient says in March, she hit the car door and since then she developed a wound. She saw in outpatient clinic a couple of times and since last week, she is going to the wound care and they told her that if her wound gets any changes, then go to the hospital. In the few days, she noted more increased redness and pain in the left lower extremity, still she is able to put weight on the legs. No fever, no chills. Denies any headache. No blurred visions, no earache, no runny nose, no sore throat, no cough. Appetite is okay. No chest pain, no shortness of breath, no nausea, no vomiting, no abdominal pain. Normal bowel and bladder movements. Currently, resting comfortably and hemodynamically stable. The patient recently saw cardiology because of her lower extremity edema. As per cardiology notes, she is on chronic steroids for her Sjogren's syndrome and inflammatory polyarthritis. About 2 years ago, she had a nontraumatic fracture of the right fifth metatarsal due to osteoporosis and treated with a boot for several months and at that time, she started to notice lower extremity swelling and edema. Because of boot, she was less active. 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 She is also having degenerative changes in the lower back, which she has radiculopathy. Since last summer, her swelling in the lower extremities got worse, right greater than left, and she went to ER and ultrasound showed DVT of the right lower extremity. She was started on Lovenox and bridged with Coumadin and then she developed a large hematoma of the left calf. She has been followed with wound are clinic for lower extremity weeping ulcers and hematomas. Recently, the patient had a resting echocardiogram, normal LV and RV function, some mitral regurgitation is present, but no pulmonary hypertension as per cardiology. Cardiology thinks echocardiogram findings unexplained the lower extremity edema. Cardiology recommends to probably stop the gabapentin and cut back on the steroids and possibly follow with the lymphedema clinic, which may help her. ALLERGIES: AUGMENTIN, BACTRIM AND CEPHALEXIN. PAST MEDICAL HISTORY: As mentioned above. PAST SURGICAL HISTORY: Biopsy of bowel, colonoscopy, EGDs with biopsy, laser trabeculoplasty, Pap smear, laparoscopic removal of abdominal lesion, cataract surgeries. MEDICATIONS: The patient is on Tylenol 500 mg p.o. q.6 hours p.r.n., ascorbic acid 500 mg p.o. daily, budesonide extended release 9 mg p.o. daily, calcium carbonate 1 tablet p.o. daily, vitamin D 1000 units p.o. daily, Lomotil 1 tablet p.o. b.i.d., Lasix 20 mg p.o. b.i.d., gabapentin 100 mg p.o. b.i.d., methylprednisone 40 mg p.o. b.i.d., Roxicodone 5 mg p.o. q.8 hours p.r.n., simethicone 125 mg p.o. p.r.n., Synthroid 75 mcg p.o. daily, vitamin A 8000units p.o. daily, warfarin as directed, zinc 50 mg p.o. daily. FAMILY HISTORY: Significant for aunt has cancer; father had kidney problems, stones and hypothyroidism; mother had rheumatic fever and rheumatic heart disease, prosthetic heart valve, CABG x5. SOCIAL HISTORY: . Former smoker, quit in 1988. No alcohol, no drug use. REVIEW OF SYSTEMS: As per HPI. Rest of the review of systems is negative. PHYSICAL EXAMINATION: GENERAL: The patient is of moderate built, not in acute distress. VITAL SIGNS: Temperature 36.4, pulse 83, respiratory rate 18, blood pressure 135/83, oxygen 97% on room air. HEENT: Pupils equal, round and reactive to light. Oral mucosa moist. NECK: No JVD, no neck masses. CARDIOVASCULAR: S1 and S2 heard. Regular rate and rhythm. No murmur, no gallop. RESPIRATORY SYSTEM: Normal AP diameter. No accessory muscle use. No wheezing, no crackles. ABDOMEN: Soft, bowel sounds present, nontender, no distention. CENTRAL NERVOUS SYSTEM: Cranial nerves II through XII are grossly intact, nonfocal. EXTREMITIES: Bilateral lower extremity edema present. Left lower extremity superficial ulcers seen on the quach region about 4 x 4 cm with erythematous changes around the wound. No active drainage seen. LABORATORY DATA: WBC 14.3, hemoglobin 12.5, hematocrit 40.4, platelets 357. PT 16.9, INR 1.7, APTT 40.6. Sodium 141, potassium 3.5, chloride 103, bicarb 29, BUN 11, creatinine 0.6, serum glucose 89, lactate 0.8, calcium 10.3, magnesium 2, total bilirubin 0.6, AST 19, ALT 13, alkaline phosphatase 60. SARS-CoV-2 negative. IMAGING DATA: Venous Doppler: No DVT. EKG: Sinus rhythm with PACs, rate of 100. ASSESSMENT AND PLAN: This 65-year-old female presents with a nonhealing left foot wound, possible cellulitis. 1. Left foot wound in the quach region and possible cellulitis. Empirically starting on vancomycin and Invanz as THE PATIENT IS ALLERGIC TO PENICILLINS. Follow the response. Consult wound care. 2. History of collagenous colitis. On budesonide. 3. Inflammatory polyarthritis and Sjogren's syndrome, on methylprednisone. Follow up with rheumatology. 4. History of deep venous thrombosis, on Coumadin. INR is 1.[address] on heparin subcutaneously for now until the INR is therapeutic. 5. Hypothyroidism, Synthroid. 6. Osteoporosis. Continue on home medications. 7. Deep venous thrombosis prophylaxis: On Coumadin. Heparin subcutaneously until INR is therapeutic. DISPOSITION: Closely monitor in the medical floor. PT/OT prior to discharge. Social service to help with discharge planning. Job ID: [id number] [facility]
[2021-05-10] MEDS: oxyCODONE HCL IR 5 MG TAB (IMMEDIATE RELEASE) PO PRN (23:30)
[2021-05-11] MEDS ORDERED: PIPERACILLIN/TAZOBACTAM 3.375 GM in DEXTROSE 5% 100 ML IV SCH (04:00)
[2021-05-11] MEDS: LEVOTHYROXINE SODIUM 75 MCG TABLET PO SCH (05:57)
[2021-05-11] MEDS: HEPARIN SOD 5,000 UNIT/0.5 ML VIAL SQ SCH ×3 (05:58→21:26)
[2021-05-11 06:48] LABS: INR 1.8 (0.9-1.1); Prothrombin Time 17.2 Seconds (9.0-12.0)
[2021-05-11] MEDS ORDERED: CONSULT PHARMACY STA (08:12)
[2021-05-11] MEDS ORDERED: ERTAPENEM SODIUM 1,000 MG in SYRINGE 0 ML IV SCH (08:15)
--- NOTE | 2021-05-11 08:37 | Pharmacy Report ---
Pharmacy Vanc AUC Short Note - Date of Service May 11, 2021 - Assessment & Plan Assessment 65 year old F receiving vancomycin and Zosyn for treatment of left foot wound/cellulitis secondary to trauma with car door in March 2021. Patient follows with cardiology/wound clinic due to lower-extremity edema with weeping ulcers/hematomas. Pertinent microbiologic data includes: left leg (05/07) growing group B beta Strep (sensitive to penicillin/ceftriaxone). Plan was to switch Zosyn to ertapenem in light of "allergies", however cephalexin allergy is listed as mild nausea. Discussed with hospitalist and will change to ceftriaxone and vancomycin. Repeat left leg culture (05/10) and blood cultures x 2 pending. Leukocytosis (14 K on presentation), SCr: 0.61 mg/dL (appears to be at baseline). Follow repeat cultures, can likely de-escalate to ceftriaxone mo notherapy in near future. Day # 2 of antimicrobial therapy. Plan Vancomycin * AUC/ANDER is the preferred PK/PD target for vancomycin * AUC guided dosing is effective and associated with decreased risk of nephrotoxicity compared to traditional trough targets * Ordered dose of 750 mg IV q12h is predicted to achieve target AUC/ANDER of 400- 600 mg/L.hr and may be associated with a 10 % risk of nephrotoxicity * Will order trough level once at steady-state if vancomycin is to continue beyond 48 hours Ceftriaxone * 1 g IV q24h - appropriate Pharmacy will continue to follow and will adjust dose/frequency as necessary. Thank you.
[2021-05-11] MEDS ORDERED: NON-FORMULARY MEDICATION (Vitamin A 10,000 unit Capsule) PO SCH (09:00)
[2021-05-11] MEDS: ALOSETRON 1 MG PO SCH ×2 (09:23→21:25)
[2021-05-11] MEDS: CALCIUM 600MG + VIT D 400 IU TAB PO SCH (09:24)
[2021-05-11] MEDS: ASCORBIC ACID 500 MG TAB PO SCH (09:24)
[2021-05-11] MEDS: BUDESONIDE EC 3 MG CAP PO SCH (09:24)
[2021-05-11] MEDS: CHOLECALCIFEROL 1,000 UNITS 25 MCG TAB PO SCH (09:24)
[2021-05-11] MEDS: FUROSEMIDE 20 MG TAB PO SCH ×2 (09:25→21:24)
[2021-05-11] MEDS: methylPREDNISolone 4 MG TAB PO SCH ×2 (09:25→21:22)
[2021-05-11] MEDS: GABAPENTIN 100 MG CAP PO SCH ×2 (09:25→21:23)
[2021-05-11] MEDS: DIPHENOXYLATE/ATROPINE 2.5/0.025MG TAB PO SCH ×2 (09:25→21:24)
[2021-05-11] MEDS: ZINC SULFATE 220 MG CAPSULE PO SCH (09:25)
[2021-05-11] MEDS: BISMUTH SUBSALICYLATE SUSP PO PRN (09:26)
--- NOTE | 2021-05-11 10:26 | Electrocardiogram Report ---
Test Reason : Blood Pressure : / mmHG Vent. Rate : 100 BPM Atrial Rate : 100 BPM P-R Int : 142 ms QRS Dur : 064 ms QT Int : 320 ms P-R-T Axes : 059 -07 -12 degrees QTc Int : 412 ms Sinus rhythm with Premature atrial complexes Possible Left atrial enlargement Low voltage QRS Abnormal ECG When compared with ECG of 17-SEP-2020 22:48, Premature atrial complexes are now Present Nonspecific T wave abnormality now evident in Lateral leads Confirmed by Zohaib Alex ([id number]) on 05/11/2021 10:26:22 AM Referred By: REFERRED SELF Confirmed By:Markel Alex
[2021-05-11] MEDS ORDERED: VANCOMYCIN HCL 750 MG in SODIUM CHLORIDE 0.9% 250 ML IV SCH (12:00)
[2021-05-11] MEDS ORDERED: WARFARIN SOD 2 MG TAB PO SCH (16:00)
[2021-05-11] MEDS: WARFARIN SOD 3 MG TAB PO SCH (17:05)
[2021-05-11] MEDS: cefTRIAXone SODIUM 1,000 MG in DEXTROSE 5% 50 ML IV SCH (17:06)
--- NOTE | 2021-05-11 17:47 | Hospitalist Progress Note ---
Date of Service May 11, 2021 Assessment & Plan (1) Wound of lower extremity: (2) Cellulitis of left lower leg: Plan: ASSESSMENT AND PLAN: This 65-year-old female presents with a nonhealing left foot wound, possible cellulitis. 1. Left Lower Leg Wound- Nonhealing Left Lower Leg Cellulitis - in the setting of Chronic Leg Edema/Venous Insufficiency Chronic Prednisone use - Doppler US of the Lower Ext: negative - Wound culture 05/07: Group B strep Wound culture 05/10: pending Blood cultures 05/10: pending - ID consulted recommend IV Ceftriaxone x 10-14 days if improving, transition to PO Cephalexin - Wound care consulted 2. History of collagenous colitis. On budesonide. 3. Inflammatory polyarthritis and Sjogren's syndrome, on methylprednisone. Follow up with rheumatology. 4. History of deep venous thrombosis, on Coumadin. INR is 1.8 - episode of DVT 10/08 - Coumadin increased to 3mg today INR daily - Heparin SC while INR subtherapeutic 5. Hypothyroidism, Synthroid. 6. Osteoporosis. Continue on home medications. 7. Deep venous thrombosis prophylaxis: On Coumadin. Heparin subcutaneously until INR is therapeutic. DISPOSITION: pending anticipate d/c home when medically stable PT/OT ordered plan of care discussed with patient and her in detail and at length all questions answered they are understanding, agreeable, comfortable with the plan of care Admission and Anticipated Discharge Date Admission Date: May 10, 2021 Subjective ff up for left lower leg non healing wound, with cellulitis, etc seen resting in bed, comfortable states she feels improved today overall L lower ext pain about the same no feve/chills no chest pain, dyspnea, palpitations, dizziness no other symptoms Review of Systems Review of Systems: all noted and negative except for above Physical Exam Physical Exam: General- oriented x 3, not in distress, speaks in sentences with no effort or accessory muscle use Head- atraumatic Eyes- PERRL, EOMI, anicteric ENT- oropharynx clear Neck- supple, no JVD, no adenopathy, no thyromegaly; carotids +2/2, no bruits appreciated Lungs- clear to auscultation bilaterally, no rales/wheezes Heart- normal rate, regular rhythm; no murmur, no gallop, no rub appreciated Abdomen- normal bowel sounds, nondistended, soft, nontender, no masses or hepatosplenomegaly Extremities- RLE: mild edema, possible fluid collection/hematoma above the medial ankle- no erythema/warmth/tenderness LLE: grade 1 edema, open wound noted, no active drainage on exam, mild erythema Neuro- alert, oriented x 3; CN 2-12 grossly intact; motor 5/5 bilaterally;sensation 100% on all extremities; no other gross focal neurologic deficits Skin- warm & dry Results & Data Results & Data ([facility]) Vital Signs (Past 12 Hours) Vital Signs Temp Pulse Resp BP Pulse Ox 05/11/21 07:42 36.7 C 77 16 120/67 96 all noted and reviewed including below
[2021-05-11] MEDS: LOPERAMIDE HCL 2 MG CAP PO SCH (21:22)
[2021-05-11] MEDS: SIMETHICONE 80 MG CHEW PO SCH (21:23)
[2021-05-11] MEDS: COLESTIPOL HCL 1 GM TAB PO SCH (21:24)
[2021-05-11] MEDS: oxyCODONE HCL IR 5 MG TAB (IMMEDIATE RELEASE) PO PRN (21:39)
[2021-05-12] MEDS: LEVOTHYROXINE SODIUM 75 MCG TABLET PO SCH (06:07)
[2021-05-12] MEDS: HEPARIN SOD 5,000 UNIT/0.5 ML VIAL SQ SCH ×3 (06:07→21:05)
[2021-05-12 06:52] LABS: INR 1.8 (0.9-1.1); Prothrombin Time 17.6 Seconds (9.0-12.0)
[2021-05-12 06:58] LABS: BUN Creatinine Ratio 20.4 (10-20); Calcium 9.2 mg/dl (8.5-10.1); Creatinine Clr Calc Pharmacy 83.3 ml/min; Est GFR (African American) 119.3 ml/min; Estimated Average Glucose 108 mg/dl; Hemoglobin A1C 5.4 % (4.5-5.6); Potassium 3.9 mmol/L (3.5-5.1)
[2021-05-12] MEDS: ACETAMINOPHEN 325 MG TAB PO PRN (08:11)
[2021-05-12] MEDS: ALOSETRON 1 MG PO SCH ×2 (08:12→20:30)
[2021-05-12] MEDS: CALCIUM 600MG + VIT D 400 IU TAB PO SCH (08:20)
[2021-05-12] MEDS: BUDESONIDE EC 3 MG CAP PO SCH (08:20)
[2021-05-12] MEDS: ASCORBIC ACID 500 MG TAB PO SCH (08:20)
[2021-05-12] MEDS: COLESTIPOL HCL 1 GM TAB PO SCH ×2 (08:20→20:30)
[2021-05-12] MEDS: DIPHENOXYLATE/ATROPINE 2.5/0.025MG TAB PO SCH ×2 (08:20→20:31)
[2021-05-12] MEDS: FUROSEMIDE 20 MG TAB PO SCH ×2 (08:20→20:31)
[2021-05-12] MEDS: GABAPENTIN 100 MG CAP PO SCH ×2 (08:20→20:31)
[2021-05-12] MEDS: LOPERAMIDE HCL 2 MG CAP PO SCH ×2 (08:20→20:36)
[2021-05-12] MEDS: CHOLECALCIFEROL 1,000 UNITS 25 MCG TAB PO SCH (08:20)
[2021-05-12] MEDS: SIMETHICONE 80 MG CHEW PO SCH ×2 (08:21→20:32)
[2021-05-12] MEDS: ZINC SULFATE 220 MG CAPSULE PO SCH (08:22)
[2021-05-12] MEDS: BISMUTH SUBSALICYLATE SUSP PO PRN (08:28)
[2021-05-12] MEDS: methylPREDNISolone 4 MG TAB PO SCH ×2 (09:03→20:30)
[2021-05-12] MEDS: WARFARIN SOD 3 MG TAB PO SCH (15:24)
--- NOTE | 2021-05-12 15:57 | Hospitalist Progress Note ---
Date of Service May 12, 2021 Assessment & Plan (1) Wound of lower extremity: (2) Cellulitis of left lower leg: Plan: A 65-year-old female with past medical history significant for hypothyroidism, allergic rhinitis, history of vasculitis of skin, DVT, irritable bowel syndrome, collagenous colitis, inflammatory polyarthritis, senile osteoporosis, degenerative disk disease, migraine, benign positional vertigo, sensory neuropathy, Sjogren syndrome, long-term use of steroids, who presented with left lower extremity wound that has been present for the past 1 month. Left Lower Leg Wound and Cellulitis In the setting of Chronic Leg Edema/Venous Insufficiency, chronic steroid use Doppler US of the Lower Ext: negative Wound culture 05/07: Group B strep Wound culture 05/10: Group B strep Blood cultures 05/10: No growth ID consulted - recommends continuing IV Ceftriaxone (day 2), then once improving, transition to PO Cephalexin for a 10 to 14-day course Wound care consulted History of collagenous colitis On budesonide Inflammatory polyarthritis and Sjogren's syndrome on methylprednisone Follow up with rheumatology History of deep venous thrombosis Episode of DVT 10/08 On Coumadin, INR 1.8 Currently on Coumadin 3 mg daily (home dosing -2 mg MWF, 1 mg all other days) Heparin SC while INR subtherapeutic Hypothyroidism Continue Synthroid. DVT prophylaxis SQ Heparin/Coumadin as above Dispo: Likely discharge home the next 1 to 2 days Plan: Attending Addendum: care coordinated with TONY Acosta please refer to her notes for full details, I agree with her notes patient seen and examined, records reviewed by myself as well on exam, patient seen sitting up in bed, comfortable states L lower leg pain is about the same as yesterday no fever/chills no other symptoms VS noted and reviewed oriented x 3, not in distress, speaks in sentences with no effort nor accessory muscle use normal rate, regular rhythm, no murmurs clear breath sounds bilaterally non distended, soft, nontende Left lower ext: edema improving- moderate, erythema improving, mild, receding wound: about the same crea 0.49 INR 1.8 ASSESSMENT AND PLAN LEFT LOWER EXTREMITY WOUND, CELLULITIS gradually improving continue IV Ceftriaxone [facility] ANTICOAGULATION HISTORY OF DVT INR 1.8 continue coumadin, heparin SC monitor INR other diagnoses and plan of care as per TONY Acosta's notes Arnold Lopez MD Admission and Anticipated Discharge Date Admission Date: May 10, 2021 Subjective Patient seen and examined. Follow-up for left lower extremity wound and cellulitis. Patient reports left lower extremity pain is improving. No fevers or chills. Denies chest pain shortness of breath. No abdominal pain or nausea. Review of Systems Review of Systems: ROS per HPI, all other systems reviewed and negative Physical Exam Constitutional: WD/WN, vitals as above Respiratory: normal respiratory effort, lungs clear to auscultation Cardiovascular: Rate/Rhythm: regular rate and regular rhythm Vessels: normal peripheral pulses Gastrointestinal (Abdomen): Percussion/Palpation: abdomen soft; abdomen nontender Skin: Dressing in place to left anterior quach CDI, +1-2 edema BLE, mild surrounding erythema noted -improving per patient Neurologic: no focal motor deficits Psychiatric: A+Ox3, euthymic affect Results & Data Results & Data ([facility]) Vital Signs (Past 12 Hours) Vital Signs Temp Pulse Resp BP Pulse Ox 05/12/21 07:46 36.6 C 70 16 129/75 98 Laboratory Results [facility] 05/12/21 05:47 Sodium 140 Potassium 3.9 Chloride 108 H Carbon Dioxide 27 BUN 10 Creatinine 0.49 L Glucose 91 Calcium 9.2
[2021-05-12] MEDS: cefTRIAXone SODIUM 1,000 MG in DEXTROSE 5% 50 ML IV SCH (17:02)
[2021-05-12] MEDS: oxyCODONE HCL IR 5 MG TAB (IMMEDIATE RELEASE) PO PRN (21:05)
[2021-05-13] MEDS: HEPARIN SOD 5,000 UNIT/0.5 ML VIAL SQ SCH (05:34)
[2021-05-13] MEDS: LEVOTHYROXINE SODIUM 75 MCG TABLET PO SCH (05:34)
[2021-05-13 06:58] LABS: Hematocrit (blood only) 35.8 % (37-47); Hemoglobin 10.9 g/dL (12.0-16.0); Mean Corpuscular Hemoglobin 28.3 pg (25-34); Mean Corpuscular Hgb Conc 30.4 g/dL (32-36); Mean Platelet Volume 9.4 fL (7.4-10.4); Platelet Count 362 K/uL (130-400); RDW Coefficient of Variation 14.8 % (11.5-14.5); RDW Standard Deviation 50.2 fL (36.4-46.3); Red Blood Count 3.85 M/uL (4.2-5.4); White Blood Count 7.75 K/uL (4.8-10.8)
[2021-05-13 07:10] LABS: INR 2.1 (0.9-1.1); Prothrombin Time 20.3 Seconds (9.0-12.0)
[2021-05-13 07:31] LABS: BUN Creatinine Ratio 29.4 (10-20); Est GFR (African American) 117.8 ml/min; Est GFR (Non-African American) 101.6 ml/min
[2021-05-13] MEDS: methylPREDNISolone 4 MG TAB PO SCH ×2 (09:01→21:27)
[2021-05-13] MEDS: ASCORBIC ACID 500 MG TAB PO SCH (09:01)
[2021-05-13] MEDS: CALCIUM 600MG + VIT D 400 IU TAB PO SCH (09:01)
[2021-05-13] MEDS: DIPHENOXYLATE/ATROPINE 2.5/0.025MG TAB PO SCH ×2 (09:01→21:28)
[2021-05-13] MEDS: CHOLECALCIFEROL 1,000 UNITS 25 MCG TAB PO SCH (09:01)
[2021-05-13] MEDS: ALOSETRON 1 MG PO SCH ×2 (09:01→21:26)
[2021-05-13] MEDS: SIMETHICONE 80 MG CHEW PO SCH ×2 (09:01→21:30)
[2021-05-13] MEDS: BUDESONIDE EC 3 MG CAP PO SCH (09:01)
[2021-05-13] MEDS: GABAPENTIN 100 MG CAP PO SCH ×2 (09:01→21:29)
[2021-05-13] MEDS: ZINC SULFATE 220 MG CAPSULE PO SCH (09:01)
[2021-05-13] MEDS: COLESTIPOL HCL 1 GM TAB PO SCH ×2 (09:01→21:28)
[2021-05-13] MEDS: FUROSEMIDE 20 MG TAB PO SCH ×2 (09:01→21:31)
[2021-05-13] MEDS: ACETAMINOPHEN 325 MG TAB PO PRN (09:13)
[2021-05-13] MEDS: BISMUTH SUBSALICYLATE SUSP PO PRN (09:13)
[2021-05-13] MEDS: LOPERAMIDE HCL 2 MG CAP PO SCH ×2 (09:14→21:39)
[2021-05-13] MEDS: cephALEXin 500 MG CAP PO SCH ×3 (13:19→21:26)
[2021-05-13] MEDS: WARFARIN SOD 3 MG TAB PO SCH (15:50)
--- NOTE | 2021-05-13 15:54 | Hospitalist Progress Note ---
Date of Service May 13, 2021 Assessment & Plan (1) Wound of lower extremity: (2) Cellulitis of left lower leg: Plan: A 65-year-old female with past medical history significant for hypothyroidism, allergic rhinitis, history of vasculitis of skin, DVT, irritable bowel syndrome, collagenous colitis, inflammatory polyarthritis, senile osteoporosis, degenerative disk disease, migraine, benign positional vertigo, sensory neuropathy, Sjogren syndrome, long-term use of steroids, who presented with left lower extremity wound that has been present for the past 1 month. Left Lower Leg Wound and Cellulitis In the setting of Chronic Leg Edema/Venous Insufficiency, chronic steroid use Doppler US of the Lower Ext: negative Wound culture 05/07: Group B strep Wound culture 05/10: Group B strep Blood cultures 05/10: No growth ID consulted - recommends continuing IV Ceftriaxone (day 3) until improving then transition to PO Cephalexin for a 10 to 14-day course Will transition to p.o. cephalexin today, monitor on oral antibiotics, possible discharge home tomorrow Wound care consulted History of collagenous colitis On budesonide Inflammatory polyarthritis and Sjogren's syndrome on methylprednisone Follow up with rheumatology History of deep venous thrombosis Episode of DVT 10/08 On Coumadin, INR 2.1 Currently on Coumadin 3 mg daily (home dosing -2 mg MWF, 1 mg all other days) Hypothyroidism Continue Synthroid. DVT prophylaxis INR 2.1 today Received SQ heparin while subtherapeutic Dispo: Likely discharge home tomorrow. Admission and Anticipated Discharge Date Admission Date: May 10, 2021 Supervising Physician Co-Signing Physician Notes I have seen and examined the patient and have discussed the case with the provider above. I agree with the assessment and plan as stated. 65 yo F with a traumatic leg injury with a car door a few weeks ago and subsequent poorly healing open wound to the lower left leg c/b cellulitis. Her cellulitis has improved significantly from level it was previously described and she still has an open wound. She denies pain, fevers, chills or other systemic symptoms and is eating and drinking and ambulating without much issue. However, she has had this same type of nonhealing wound on the other leg and she has some concerns about going home today. Agree with plan to switch to oral abx and monitor closely for issues overnight. Physical reveals a HD stable female in NAD with normal heart and lung exam, soft, NTND abd, LLE covered with an Optifoam and Aquacel. The dressing was saturated, however, there was some issue trying to remove the Aquacel--deferred to primary nurse to use saline to remove more slowly and efficiently to change dressing. Therefore, wound was not able to be directly visualized. Extremity was warm and well perfused. DO Gunner Subjective Patient seen and examined. Follow-up for left lower extremity wound and cellulitis. Patient reports left lower extremity continues to improve. Erythema and swelling improving. No chest pain or shortness of breath. Denies abdominal pain or nausea. Review of Systems Review of Systems: ROS per HPI, all other systems reviewed and negative Physical Exam Constitutional: WD/WN, vitals as above no acute distress Sitting up in the chair Respiratory: normal respiratory effort, lungs clear to auscultation Cardiovascular: Rate/Rhythm: regular rate and regular rhythm Vessels: normal peripheral pulses Extremities: no edema Gastrointestinal (Abdomen): Percussion/Palpation: abdomen soft; abdomen nontender Skin: Dressing noted to left anterior quach with moderate amount of drainage, surrounding erythema present however improved from yesterday. +1 to +2 edema L LE. Neurologic: no focal motor deficits Psychiatric: A+Ox3, euthymic affect Results & Data Results & Data ([facility]) Vital Signs (Past 12 Hours) Vital Signs Temp Pulse Resp BP Pulse Ox 05/13/21 14:41 36.6 C 102 H 16 147/90 H 95 05/13/21 07:34 36.7 C 70 18 114/70 96 Laboratory Results Short CBC 05/13/21 Range/Units 06:33 WBC 7.75 (4.8-10.8) K/uL Hgb 10.9 L (12.0-16.0) g/dL Hct 35.8 L (37-47) % Plt Count 362 (130-400) K/uL BMP 05/13/21 06:33 Sodium 142 Potassium 4.0 Chloride 108 H Carbon Dioxide 26 BUN 15 Creatinine 0.51 L Glucose 89 Calcium 9.0
[2021-05-13] MEDS: oxyCODONE HCL IR 5 MG TAB (IMMEDIATE RELEASE) PO PRN (23:39)
[2021-05-14] MEDS ORDERED: oxyCODONE HCL IR 5 MG TAB (IMMEDIATE RELEASE) PO PRN (01:27)
[2021-05-14] MEDS ORDERED: MoRPHine SULFATE 4 MG/ML 1 ML CARP\\VIAL IV PRN (01:27)
--- NOTE | 2021-05-14 01:28 | Communication Note ---
Date of Service: May 14, 2021 Made aware by RN of uncontrolled blood pressure. SBP persistently 180s . Patient with left leg pain uncontrolled on current OxyIR regimen. AP Hypertensive urgency Secondary to uncontrolled left leg pain Past history VIBHA inhibitor Rx on review of outpatient records Initiate lisinopril Augment analgesic regimen. Will relay to AM provider.
[2021-05-14] MEDS ORDERED: lisinopril 2.5 MG TAB PO SCH (01:30)
[2021-05-14] MEDS: LEVOTHYROXINE SODIUM 75 MCG TABLET PO SCH (05:30)
[2021-05-14 06:46] LABS: BUN Creatinine Ratio 33.3 (10-20); Calcium 9.5 mg/dl (8.5-10.1); Est GFR (African American) 117.8 ml/min; Est GFR (Non-African American) 101.6 ml/min; Potassium 4.1 mmol/L (3.5-5.1)
[2021-05-14 06:54] LABS: INR 2.5 (0.9-1.1); Prothrombin Time 23.7 Seconds (9.0-12.0)
[2021-05-14] MEDS: ACETAMINOPHEN 325 MG TAB PO PRN (07:48)
[2021-05-14] MEDS: ASCORBIC ACID 500 MG TAB PO SCH (08:59)
[2021-05-14] MEDS: ALOSETRON 1 MG PO SCH (08:59)
[2021-05-14] MEDS: BUDESONIDE EC 3 MG CAP PO SCH (09:00)
[2021-05-14] MEDS: cephALEXin 500 MG CAP PO SCH ×3 (09:01→17:54)
[2021-05-14] MEDS: CALCIUM 600MG + VIT D 400 IU TAB PO SCH (09:01)
[2021-05-14] MEDS: CHOLECALCIFEROL 1,000 UNITS 25 MCG TAB PO SCH (09:02)
[2021-05-14] MEDS: DIPHENOXYLATE/ATROPINE 2.5/0.025MG TAB PO SCH (09:02)
[2021-05-14] MEDS: methylPREDNISolone 4 MG TAB PO SCH (09:03)
[2021-05-14] MEDS: GABAPENTIN 100 MG CAP PO SCH (09:03)
[2021-05-14] MEDS: COLESTIPOL HCL 1 GM TAB PO SCH (09:03)
[2021-05-14] MEDS: FUROSEMIDE 20 MG TAB PO SCH (09:03)
[2021-05-14] MEDS: ZINC SULFATE 220 MG CAPSULE PO SCH (09:04)
[2021-05-14] MEDS: SIMETHICONE 80 MG CHEW PO SCH (09:04)
[2021-05-14] MEDS: LOPERAMIDE HCL 2 MG CAP PO SCH (09:06)
[2021-05-14] MEDS: BISMUTH SUBSALICYLATE SUSP PO PRN (09:14)
--- NOTE | 2021-05-14 16:04 | Hospitalist Progress Note ---
Date of Service May 14, 2021 Assessment & Plan (1) Wound of lower extremity: (2) Cellulitis of left lower leg: Plan: A 65-year-old female with past medical history significant for hypothyroidism, allergic rhinitis, history of vasculitis of skin, DVT, irritable bowel syndrome, collagenous colitis, inflammatory polyarthritis, senile osteoporosis, degenerative disk disease, migraine, benign positional vertigo, sensory neuropathy, Sjogren syndrome, long-term use of steroids, who presented with left lower extremity wound that has been present for the past 1 month. Left Lower Leg Wound and Cellulitis In the setting of Chronic Leg Edema/Venous Insufficiency, chronic steroid use Doppler US of the Lower Ext: negative Wound culture 05/07: Group B strep Wound culture 05/10: Group B strep Blood cultures 05/10: No growth ID consulted - received 3 days of IV Ceftriaxone with recommendation to transition to PO Cephalexin for a 10 to 14-day course Transitioned to PO cephalexin 05/13/21 Wound care consulted - RN concerned about non-healing aspect of wound potentially requiring debridement Dr. Riley of ortho surgery to evaluate this afternoon Has outpatient wound care appointment scheduled for next Plan to continue scheduled Tylenol and PRN Oxycodone at discharge for pain control History of collagenous colitis On budesonide Inflammatory polyarthritis and Sjogren's syndrome On methylprednisone Follow up with rheumatology History of deep venous thrombosis Episode of DVT 10/08 On Coumadin, INR 2.1 Currently on Coumadin 3 mg daily (home dosing -2 mg MWF, 1 mg all other days) Holding today's dose until decision regarding debridement made Hypothyroidism Continue Synthroid. DVT prophylaxis INR 2.1 today Received SQ heparin while subtherapeutic Dispo: Admitted to med/surg Admission and Anticipated Discharge Date Admission Date: May 10, 2021 Subjective Patient seen and examined in 385-2 in follow-up for left lower extremity wound and cellulitis. LLE visually improving with less redness and swelling. Had more pain overnight that improved with morphine. Pain is back to typical baseline today, per patient. No F/C, CP, SOB, N/V, abdominal pain, dysuria, diarrhea or constipation. Review of Systems Review of Systems: ROS per HPI, all other systems reviewed and negative Physical Exam Physical Exam: Gen: WD/WN, NAD, lying in bed, A&Ox3 HEENT: Normocephalic, atraumatic, conjunctivae moist, sclerae anicteric, mucous membranes moist Lung: Clear to Auscultation bilaterally, no wheezes/rales/rhonchi Heart: Regular rate, regular rhythm, no murmurs, rubs, or gallops Abdomen: Soft, NT, ND +BS x 4 Extremities: LLE with large wound on anterior quach. Lower medial portion with granulation tissue and lateral portion with yellow sloughing. Wound borders with small amount of erythema. 1+ edema to BLE Skin: Warm Results & Data Results & Data ([facility]) Vital Signs (Past 12 Hours) Vital Signs Temp Pulse Pulse Resp BP BP Pulse Ox 05/14/21 15:52 36.6 C 82 16 118/78 97 05/14/21 07:52 36.5 C 73 16 144/86 H 100 Laboratory Results [facility] 05/14/21 05:56 Sodium 142 Potassium 4.1 Chloride 107 Carbon Dioxide 29 BUN 17 Creatinine 0.51 L Glucose 81 Calcium 9.5 Diagnostic Findings Venous Doppler Study 05/10/21 16:48 LEFT LOWER EXTREMITY VENOUS DOPPLER HISTORY: Acute pain and swelling of the left lower leg eval for dvt COMPARISON STUDY: Doppler study 09/17/2020 FINDINGS: There is normal compressibility, flow, and augmentation within the left lower extremity deep venous system. IMPRESSION: No DVT within the left lower extremity. ACT 112: Negative or not required by law. Electronically signed by: Yoan William M.D. 05/10/2021 6:03 PM
--- NOTE | 2021-05-14 17:33 | Orthopedic Consultation ---
Date of Service May 14, 2021 Assessment & Plan (1) Wound of lower extremity: I inspected the wound closely. She said she was dealing with a similar wound on her right leg that was treated last year. That did go on to heal. The infection has mostly subsided in her left leg. She is hoping to go home. I do not think that a debridement in the operating room is necessary for this. I think she can be treated as an outpatient with wound care. She is orthopedically stable for discharge when medically ready. History of Present Illness Reason for Consultation: Left leg wound. Requesting Physician: . Attending Physician: Winter Martino DO Charity is a 65-year-old female who had a car door hit her left leg on April 10. She developed a hematoma of her left leg. She been going to wound care. The hematoma was evacuated and the necrotic skin tissue was removed. She still dealing with a wound on her left leg. She began noticing some redness in the area. There was concerns for infection. She came to the emergency she room and was admitted for IV antibiotics. Wound cultures have grown out group B strep. Infectious disease has recommended IV antibiotics followed by oral antibiotics. Orthopedics was consulted to evaluate the wound to see if a debridement in the operating room would be necessary. Allergies Allergy/AdvReac Type Severity Reaction Status Date / Time amoxicillin [From Augmentin] AdvReac Intermediate Vomiting Verified 05/10/21 17:52 clavulanic acid AdvReac Intermediate Vomiting Verified 05/10/21 17:52 [From Augmentin] sulfamethoxazole AdvReac Intermediate NAUSEA/VOMI Verified 05/10/21 17:52 TING trimethoprim AdvReac Intermediate NAUSEA/VOMI Verified 05/10/21 17:52 TING cephalexin [From Keflex] AdvReac Mild Nausea Verified 05/10/21 17:52 Home Medications Medication Instructions Recorded Confirmed Type cholecalciferol (vitamin D3) 25 1,000 units PO DAILY 11/16/17 05/10/21 History mcg (1,000 unit) capsule methylprednisolone 4 mg tablet 4 mg PO BID tab 11/13/18 05/10/21 History (Medrol) budesonide 9 mg tablet,delayed and 9 mg PO DAILY 11/22/18 05/10/21 History extended release simethicone 125 mg capsule (Gas-X 125 mg PO DIRECTED PRN cap 07/01/20 05/10/21 History Extra Strength) ascorbic acid (vitamin C) 500 mg 500 mg PO DAILY 09/17/20 05/10/21 History tablet (Vitamin C) vitamin A 10,000 unit capsule 2,400 unit PO DAILY 09/17/20 05/10/21 History zinc 50 mg tablet 50 mg PO DAILY 09/17/20 05/10/21 History alosetron 1 mg tablet (Lotronex) 1 mg PO BID 11/29/20 05/10/21 History furosemide 20 mg tablet 20 mg PO BID 11/29/20 05/10/21 History oxycodone 5 mg tablet (Roxicodone) 5 mg PO Q8H PRN #9 tab 11/29/20 05/10/21 Rx warfarin 1 mg tablet See Rx Instructions .ROUTE .COMPLEX 11/29/20 05/10/21 History diphenoxylate-atropine 2.5 1 tab PO BID tab 01/02/21 05/10/21 History mg-0.025 mg tablet (Lomotil) Synthroid 75 mcg tablet 75 mcg PO .COMPLEX #30 tab NS 02/03/21 05/10/21 Rx (levothyroxine) acetaminophen 500 mg tablet 500 mg PO Q6H PRN 05/07/21 05/10/21 History (Tylenol Extra Strength) calcium carbonate 600 mg-vitamin 1 tab PO DAILY tab 05/07/21 05/10/21 History D3 5 mcg (200 unit) tablet gabapentin 100 mg capsule 100 mg PO BID 05/07/21 05/10/21 History Past Med/Surg History Medical History Colitis Surinder's disease Hypothyroidism Migraine headache Osteopenia Polyarthritis Sjogrens syndrome Vasculitis Surgical History H/O detached retina repair History of laparoscopy Hx of cataract surgery both eyes Hx of dilation and curettage Hx of wisdom tooth extraction Family History Mother Rheumatic heart disease Bacterial endocarditis Father Gout Social History Smoking Status: Never smoker Tobacco Type: Cigarettes Second Hand Exposure: No; Hx Alcohol Use: No Hx Substance Use: No Preferred Language: Nauruan Communication Ability: Effective Deputy Controller Required: No Beliefs That Will Affect Care: None Current Living Situation: Spouse Current Living Situation Comment: Lives at home with Other Information That Helps Us Care for You: No Feels Safe at Home: Yes Safety Concerns: Feels Safe At This Time Assistive Devices: None Review of Systems All systems reviewed & are unremarkable except as noted in HPI & below. Physical Exam On physical examination of the left leg, there is a large wound on the anterolateral aspect of the leg. Measures about 15 cm x 10 cm. It is very shallow. I do not see any signs of infection or streaking erythema. Constitutional WD/WN, vitals as above Eyes PERRL, conjunctivae normal, anicteric sclerae ENMT external ear and nose normal, oropharynx normal Neck trachea midline, no thyromegaly Respiratory normal respiratory effort Cardiovascular RRR, no murmur, no edema Gastrointestinal (Abdomen) normal bowel sounds, soft, nontender, no hepatosplenomegaly Psychiatric A+Ox3, euthymic affect Results & Data Results & Data Laboratory Results . Diagnostic Findings . PG Care Time/CCT Total # of Minutes Spent Total Time Spent with Patient: Total time spent is greater than 50% in coordination of care (as documented) at patient's floor/unit and/or counseling patient: Coding Level of Care Code 52055 Inpt Consult Level 4 Diagnoses Wound of lower extremity S81.809A
--- NOTE | 2021-05-14 17:48 | Discharge Summary ---
Date of Service May 14, 2021 Admission HPI Per Admitting Provider A 65-year-old female with past medical history significant for hypothyroidism, allergic rhinitis, history of vasculitis of skin, DVT, irritable bowel syndrome, collagenous colitis, inflammatory polyarthritis, senile osteoporosis, degenerative disk disease, migraine, benign positional vertigo, sensory neuropathy, Sjogren syndrome, long-term use of steroids, who presents with left lower extremity wound. The patient says in March, she hit the car door and since then she developed a wound. She saw in outpatient clinic a couple of times and since last week, she is going to the wound care and they told her that if her wound gets any changes, then go to the hospital. In the few days, she noted more increased redness and pain in the left lower extremity, still she is able to put weight on the legs. No fever, no chills. Denies any headache. No blurred visions, no earache, no runny nose, no sore throat, no cough. Appetite is okay. No chest pain, no shortness of breath, no nausea, no vomiting, no abdominal pain. Normal bowel and bladder movements. Currently, resting comfortably and hemodynamically stable. The patient recently saw cardiology because of her lower extremity edema. As per cardiology notes, she is on chronic steroids for her Sjogren's syndrome and inflammatory polyarthritis. About 2 years ago, she had a nontraumatic fracture of the right fifth metatarsal due to osteoporosis and treated with a boot for several months and at that time, she started to notice lower extremity swelling and edema. Because of boot, she was less active. 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 She is also having degenerative changes in the lower back, which she has radiculopathy. Since last summer, her swelling in the lower extremities got worse, right greater than left, and she went to ER and ultrasound showed DVT of the right lower extremity. She was started on Lovenox and bridged with Coumadin and then she developed a large hematoma of the left calf. She has been followed with wound are clinic for lower extremity weeping ulcers and hematomas. Recently, the patient had a resting echocardiogram, normal LV and RV function, some mitral regurgitation is present, but no pulmonary hypertension as per cardiology. Cardiology thinks echocardiogram findings unexplained the lower extremity edema. Cardiology recommends to probably stop the gabapentin and cut back on the steroids and possibly follow with the lymphedema clinic, which may help her. Admission Exam Per Admitting Provider GENERAL: The patient is of moderate built, not in acute distress. VITAL SIGNS: Temperature 36.4, pulse 83, respiratory rate 18, blood pressure 135/83, oxygen 97% on room air. HEENT: Pupils equal, round and reactive to light. Oral mucosa moist. NECK: No JVD, no neck masses. CARDIOVASCULAR: S1 and S2 heard. Regular rate and rhythm. No murmur, no gallop. RESPIRATORY SYSTEM: Normal AP diameter. No accessory muscle use. No wheezing, no crackles. ABDOMEN: Soft, bowel sounds present, nontender, no distention. CENTRAL NERVOUS SYSTEM: Cranial nerves II through XII are grossly intact, nonfocal. EXTREMITIES: Bilateral lower extremity edema present. Left lower extremity superficial ulcers seen on the quach region about 4 x 4 cm with erythematous changes around the wound. No active drainage seen. Principal Diagnosis Left leg cellulitis Traumatic lower leg wound s/p I&D of hematoma Discharge Exam Gen: WD/WN, NAD, lying in bed, A&Ox3 HEENT: Normocephalic, atraumatic, conjunctivae moist, sclerae anicteric, mucous membranes moist Lung: Clear to Auscultation bilaterally, no wheezes/rales/rhonchi Heart: Regular rate, regular rhythm, no murmurs, rubs, or gallops Abdomen: Soft, NT, ND +BS x 4 Extremities: LLE with large wound on anterior quach. Lower medial portion with granulation tissue and lateral portion with yellow sloughing. Wound borders with small amount of erythema. 1+ edema to BLE Skin: Warm Discharge Data Allergies Allergy/AdvReac Type Severity Reaction Status Date / Time amoxicillin [From Augmentin] AdvReac Intermediate Vomiting Verified 05/10/21 17:52 clavulanic acid AdvReac Intermediate Vomiting Verified 05/10/21 17:52 [From Augmentin] sulfamethoxazole AdvReac Intermediate NAUSEA/VOMI Verified 05/10/21 17:52 TING trimethoprim AdvReac Intermediate NAUSEA/VOMI Verified 05/10/21 17:52 TING cephalexin [From Keflex] AdvReac Mild Nausea Verified 05/10/21 17:52 Consultations 05/10/21 19:23 ED Decision to Admit Stat 05/11/21 08:26 Consult Infectious Diseases Routine 05/14/21 15:41 Consult Orthopedic Surgery Routine Ordered Studies 05/10/21 16:48 US venous doppler LE LT Stat Hospital Course (1) Wound of lower extremity: (2) Cellulitis of left lower leg: (3) Chronic steroid use: (4) Hypothyroidism: (5) Hypertension: (6) DVT (deep venous thrombosis): This is a 65-year-old female with past medical history significant for hypothyroidism, allergic rhinitis, history of vasculitis of skin, DVT, irritable bowel syndrome, collagenous colitis, inflammatory polyarthritis, senile oste oporosis, degenerative disk disease, migraine, benign positional vertigo, sensory neuropathy, Sjogren syndrome, long-term use of steroids, who presented with left lower extremity wound that has been present for the past 1 month in setting of venous insufficiency and chronic steroid use. Doppler ultrasound of lower extremity negative for DVT. Wound culture from 05/10 growing Group B strep. Blood cultures from 05/10 without growth. Received 3 days of IV Ceftriaxone with recommendation from ID to transition to PO Cephalexin for a 10 to 14-day course. Dr. Riley evaluated wound and did not feel it required in-patient debridement from ortho perspective. Plan to follow up with Dr. Wright next week in the wound clinic. Repeat INR in next week with anticoagulation clinic. Given Tramadol in addition to Tylenol for pain. Patient hemodynamically stable at time of discharge home. Total Time Total Time Spent Total Time Spent (In Minutes): 40 Discharge Plan Discharge Items Patient Disposition: Home - Self-Care Reason For Visit: LEFT LEG WOUND Discharge Diagnosis: Left leg cellulitis Traumatic lower leg wound s/p I&D of hematoma Condition on Discharge: Good Activity: Resume your previous activity Non-emergency contact: Primary Care Provider Call non-emergency contact if: you have any medication questions, your symptoms worsen, your pain is not controlled, your pain is worsening, your pain is unusual for you and your pain is concerning for you Follow-up/Referrals: Alexx Sepulveda DO [Primary Care Provider] - (Date & Time 05/20/2021 1:40 PM Provider Ele Hooper PA-C Department [facility] ) Diet: Regular Addtl Attending Provider Instructions: Please take all medications as indicated on discharge list below. You are being given tramadol, a pain medication that can help with more severe pain untreated with Tylenol (acetaminophen). It is also recommended that you try a trial of Tylenol 1000mg every 8 hours for a few days to see if this helps the pain. Occasionally, when taken in combination, these two medications can be very effective for pain control. Please follow-up with Dr. Wright next week in the wound clinic as you have scheduled for further evaluation and treatment of this wound. Please continue to followup with the anticoagulation clinic regarding your INR level to ensure you stay in the goal range of 2-3. On discharge today, your INR is 2.5. You are also being given a short course of antibiotics to take to complete the regimen for your leg infection. Please follow-up with your primary care provider at the date/time listed above to monitor this and how you are doing since returning home. It was a pleasure taking care of you! Please call if you have any questions or problems. You can reach a [facility] hospitalist on duty at [facility] 24 hours a day by calling [phone]. Take care of yourself. Winter Martino, DO [facility] Hospitalist Pending Studies at Discharge: No Stand-Alone Forms: My [facility], Opioid Pain Management Medications and DC Order Prescriptions: New cephalexin 500 mg Capsule 500 mg PO QID Qty: 20 RF: 0 tramadol 50 mg tablet 50 mg PO Q6H PRN (Reason: severe pain) Qty: 30 RF: 0 Continued cholecalciferol (vitamin D3) 1,000 unit capsule 1,000 units PO DAILY RF: 0 methylprednisolone [Medrol] 4 mg tablet 4 mg PO BID RF: 0 diphenoxylate-atropine [Lomotil] 2.5-0.025 mg tablet 1 tab PO BID RF: 0 acetaminophen [Tylenol Extra Strength] 500 mg tablet 500 mg PO Q6H PRN (Reason: FEVER/PAIN) RF: 0 gabapentin 100 mg capsule 100 mg PO BID RF: 0 levothyroxine [Synthroid] 75 mcg tablet 75 mcg PO .COMPLEX Qty: 30 RF: 5 budesonide 9 mg tablet,delayed and ext.release 9 mg PO DAILY RF: 0 simethicone [Gas-X Extra Strength] 125 mg capsule 125 mg PO DIRECTED PRN (Reason: Indigestion) RF: 0 calcium carbonate-vitamin D3 600 mg-5 mcg (200 unit) tablet 1 tab PO DAILY RF: 0 vitamin A 10,000 unit Capsule 2,400 unit PO DAILY RF: 0 ascorbic acid (vitamin C) [Vitamin C] 500 mg Tablet 500 mg PO DAILY RF: 0 zinc 50 mg Tablet 50 mg PO DAILY RF: 0 alosetron [Lotronex] 1 mg tablet 1 mg PO BID RF: 0 furosemide 20 mg tablet 20 mg PO BID RF: 0 warfarin 1 mg tablet See Rx Instructions .ROUTE .COMPLEX RF: 0 Discharge Orders: Discharge Order (Routine); Ordered 05/14/21 Ordered By: Winter Martino Admission Data Admit Date/Time: 05/10/21 20:06 Attending Provider: Winter Martino Admit Provider: Dyllan Massey Primary Care Provider: Alexx Sepulveda Other Providers: Scooter Carlton ; Terrell Garg ; Chung Connell I. ; Darien Campbell II ; Aura Rojo ; Pavan Cerrato ; Jorge Luis Soto ; Joan Connell ; Vargas Riley Other Interventions: Discharge Summary Assessment (RN) Last Done: 05/14/21 18:09
[2021-05-14] MEDS: WARFARIN SOD 3 MG TAB PO SCH (17:59)
== END 2021-05-14 19:25 | disposition home or self-care (01) | DRG 605 ==
LOC: ED 16:21 → 3N 20:06 → SUATTDRO 20:06 → 3N 20:41

== ENCOUNTER 2021-06-15 16:23 | Inpatient (IN) ==
[2021-06-15] MEDS ORDERED: ONDANSETRON INJ 2 MG/ML 2 ML VIAL IV STA (18:00)
[2021-06-15] MEDS ORDERED: VANCOMYCIN CONSULT ACTIVE PRN (18:00)
[2021-06-15] MEDS ORDERED: VANCOMYCIN HCL 1,000 MG in SODIUM CHLORIDE 0.9% 500 ML IV ONE (18:00)
[2021-06-15] MEDS ORDERED: MoRPHine SULFATE 2 MG/ML CARP IV STA (18:00)
--- NOTE | 2021-06-15 18:12 | Emergency Department Note ---
History of Present Illness General Chief complaint: Infection Stated complaint: R LEG INFECTION Time Seen by Provider: 06/15/21 17:44 Source: patient History of Present Illness Provider complaint: Right leg pain Onset (ago): day(s) 4 Location: lower extremity and right Pain Consistency: + constant Maximum Pain Intensity: 10 Quality: + dull Exacerbated By: + movement and + other (Palpation) Associated symptoms: + fever/chills; no chest pain, no cough, no nausea/vomiting or no shortness of breath This is a 66-year-old female who presents with pain and redness to her right leg starting approximately 3 days ago. She had infection of her left leg which has been treated by the wound care clinic whom she saw 4 days ago. 3 days ago she went to the doctor and was placed on clindamycin and doxycycline for an infection starting on the right leg. She describes the pain as severe and 10 out of 10 in severity. Is worse when she moves around or touches it. She does state that her doctor "poked around" the wound 2 days ago and mostly clear fluid came out. She states that she was told that if her symptoms do not get any better that she should come to the emergency department. She states that her symptoms are no better. She started feeling nauseous and having a fever up to 101 so she came here. She denies any cough or cold symptoms, chest pain, shortness of breath, abdominal pain, vomiting, diarrhea or urinary symptoms. She states the wound started about 3 weeks ago when she had blood pressures taken from both of her legs at the wound care clinic. The blood pressure cough caused a hematoma to the right leg which subsequently led to an infection. She states it has been slightly red but got significantly redder over the past 3 days. Home Medications Medication Instructions Recorded Confirmed Type cholecalciferol (vitamin D3) 25 1,000 units PO DAILY 11/16/17 06/15/21 History mcg (1,000 unit) capsule budesonide 9 mg tablet,delayed and 9 mg PO DAILY 11/22/18 06/15/21 History extended release simethicone 125 mg capsule (Gas-X 125 mg PO DIRECTED PRN cap 07/01/20 06/15/21 History Extra Strength) ascorbic acid (vitamin C) 500 mg 500 mg PO DAILY 09/17/20 06/15/21 History tablet (Vitamin C) vitamin A 10,000 unit capsule 2,400 unit PO DAILY 09/17/20 06/15/21 History zinc 50 mg tablet 50 mg PO DAILY 09/17/20 06/15/21 History alosetron 1 mg tablet (Lotronex) 1 mg PO BID 11/29/20 06/15/21 History furosemide 20 mg tablet 20 mg PO BID 11/29/20 06/15/21 History warfarin 1 mg tablet 1 mg PO 5XWK 11/29/20 06/15/21 History diphenoxylate-atropine 2.5 2 tab PO BID tab 01/02/21 06/15/21 History mg-0.025 mg tablet (Lomotil) Synthroid 75 mcg tablet 75 mcg PO .COMPLEX #30 tab NS 02/03/21 06/15/21 Rx (levothyroxine) calcium carbonate 600 mg-vitamin 1 tab PO DAILY tab 05/07/21 06/15/21 History D3 5 mcg (200 unit) tablet Bifidobacterium infantis 4 mg 4 mg PO DAILY PRN 06/15/21 06/15/21 History capsule (Align) acetaminophen 500 mg tablet 1,000 mg PO TID PRN 06/15/21 06/15/21 History clindamycin HCl 300 mg capsule 300 mg PO TID 06/15/21 06/15/21 History colestipol 1 gram tablet (Colestid) 1 g PO BID 06/15/21 06/15/21 History cyclosporine 0.05 % eye drops in a 1 drp OPB Q12H 06/15/21 06/15/21 History dropperette (Restasis) denosumab 60 mg/mL subcutaneous 60 mg SUBCUT .TWICE YEARLY 06/15/21 06/15/21 History syringe (Prolia) doxycycline hyclate 100 mg capsule 100 mg PO AMHS 06/15/21 06/15/21 History loperamide 2 mg tablet (Imodium 4 mg PO BID 06/15/21 06/15/21 History A-D) methylprednisolone 4 mg tablet 4 mg PO BID 06/15/21 06/15/21 History sodium chloride 0.65 % nasal spray 1 spray INTRANASAL TID PRN 06/15/21 06/15/21 History aerosol (Saline Nasal Mist) warfarin 1 mg tablet 2 mg PO 2XWK 06/15/21 06/15/21 History Allergies Allergy/AdvReac Type Severity Reaction Status Date / Time amoxicillin [From Augmentin] AdvReac Intermediate Vomiting Verified 06/15/21 16:48 clavulanic acid AdvReac Intermediate Vomiting Verified 06/15/21 16:48 [From Augmentin] sulfamethoxazole AdvReac Intermediate NAUSEA/VOMI Verified 06/15/21 16:48 TING trimethoprim AdvReac Intermediate NAUSEA/VOMI Verified 06/15/21 16:48 TING cephalexin [From Keflex] AdvReac Mild Nausea Verified 06/15/21 16:48 tramadol AdvReac Vomiting Unverified 06/15/21 21:47 Past Med/Surg History Medical History Cellulitis Chronic steroid use Colitis DVT (deep venous thrombosis) Surinder's disease Hypothyroidism Lab test negative for COVID-19 virus Leg pain, left Localized swelling of both lower legs Migraine headache Osteopenia Polyarthritis Sjogrens syndrome Vasculitis Surgical History H/O detached retina repair History of laparoscopy Hx of cataract surgery both eyes Hx of dilation and curettage Hx of wisdom tooth extraction Family History Mother Rheumatic heart disease Bacterial endocarditis Father Gout Social History Smoking Status: Former smoker Tobacco Type: Cigarettes Second Hand Exposure: No; Hx Alcohol Use: No Hx Substance Use: No Preferred Language: Northern Irish Communication Ability: Effective Environmental Remediation Specialist Required: No Beliefs That Will Affect Care: None Current Living Situation: Spouse Current Living Situation Comment: Lives at home with Feels Safe at Home: Yes Assistive Devices: None Review of Systems See HPI for pertinent positives & negatives. and A total of 10 systems reviewed and were otherwise negative Physical Exam Vital Signs Vital Signs - 24 hr 06/15/21 16:28 06/15/21 18:00 06/15/21 18:57 Temperature 36.7 C Temperature Source Temporal Artery Scan Pulse Rate 107 H Pulse Rate from SpO2 Sensor Pulse Rhythm Regular Pulse Strength Normal Respiratory Rate 20 Respiratory Effort / Characteristics Non-Labored Spontaneous Non-Labored Spontaneous Respiratory Depth Normal Respiratory Pattern Regular Blood Pressure 162/92 H Blood Pressure [Right Arm] 174/95 H Blood Pressure Mean 115 Blood Pressure Mean [Right Arm] 121 Blood Pressure Position Sitting Pulse Oximetry 98 Oxygen Delivery Method Room Air Room Air Sepsis Recent Fever Within 48 Hours No Sepsis New/Unexplained Change in Mental Status N/A Sepsis Action Taken by Nursing No Action Required 06/15/21 19:00 06/15/21 19:03 06/15/21 19:42 Temperature Temperature Source Pulse Rate 93 H 107 H Pulse Rate from SpO2 Sensor 90 107 H Pulse Rhythm Pulse Strength Respiratory Rate 15 27 H Respiratory Effort / Characteristics Non-Labored Spontaneous Respiratory Depth Respiratory Pattern Blood Pressure Blood Pressure [Right Arm] Blood Pressure Mean Blood Pressure Mean [Right Arm] Blood Pressure Position Pulse Oximetry 98 99 Oxygen Delivery Method Sepsis Recent Fever Within 48 Hours Sepsis New/Unexplained Change in Mental Status Sepsis Action Taken by Nursing 06/15/21 20:00 06/15/21 20:30 06/15/21 21:00 Temperature Temperature Source Pulse Rate 100 H 92 H 92 H Pulse Rate from SpO2 Sensor 99 H 93 H 93 H Pulse Rhythm Pulse Strength Respiratory Rate 20 13 19 Respiratory Effort / Characteristics Respiratory Depth Respiratory Pattern Blood Pressure 174/95 H Blood Pressure [Right Arm] Blood Pressure Mean 121 Blood Pressure Mean [Right Arm] Blood Pressure Position Pulse Oximetry 98 98 97 Oxygen Delivery Method Sepsis Recent Fever Within 48 Hours Sepsis New/Unexplained Change in Mental Status Sepsis Action Taken by Nursing 06/15/21 21:30 06/15/21 22:00 06/15/21 22:32 Temperature 37 C Temperature Source Oral Pulse Rate 99 H 96 H Pulse Rate from SpO2 Sensor 96 H Pulse Rhythm Pulse Strength Respiratory Rate 31 H Respiratory Effort / Characteristics Non-Labored Non-Labored Respiratory Depth Respiratory Pattern Blood Pressure 158/85 H Blood Pressure [Right Arm] Blood Pressure Mean 109 Blood Pressure Mean [Right Arm] Blood Pressure Position Pulse Oximetry 99 Oxygen Delivery Method Sepsis Recent Fever Within 48 Hours Sepsis New/Unexplained Change in Mental Status Sepsis Action Taken by Nursing Constitutional: Vital signs reviewed. Eyes: Pupils are equal round reactive to light. Conjunctiva are noninjected. ENT: Pharynx is clear without erythema or exudate. Mucous membranes are moist. Neck supple without meningeal signs. Respiratory: Clear to auscultation bilaterally. Breath sounds are equal bilaterally. Cardiovascular: Regular rate and rhythm. No rubs or gallops. GI: Soft, nondistended and nontender. Bowel sounds are present. Musculoskeletal: Swelling and erythema to the right lower extremity with fluctuance over the mid calf as well as the lower calf where there is an eschar. Diffuse tenderness throughout the right leg posteriorly. Diffuse swelling and erythema to the foot with intact capillary refill in the toes. Integumentary: No cyanosis. or jaundice. Neurological: The patient is awake and alert. No focal deficits. Psychiatric: Normal affect. Not anxious appearing. Course Administered Medications Magnesium Sulfate/Dextrose (Magnesium Sulfate / D5w) 1 gm in 100 mls @ 50 mls/h r IV ONE ONE Stop: 06/15/21 22:59 Last Admin: 06/15/21 21:12 Dose: 50 mls/hr Documented by: [id number] Discontinued Medications Vancomycin HCl 1,000 mg/ (Sodium Chloride) 520 mls @ 200 mls/hr IV NOW ONE Stop: 06/15/21 20:35 Last Infusion: 06/15/21 22:33 Dose: 0 mls/hr Documented by: [id number] Admin: 06/15/21 18:41 Dose: 200 mls/hr Documented by: [id number] Cefepime HCl (Maxipime) 2,000 mg in 20 mls @ 5 mls/min IV NOW STA; Protocol Stop: 06/15/21 20:52 Last Admin: 06/15/21 21:13 Dose: 5 mls/min Documented by: [id number] Ioversol (Optiray 320 100ml) 94 ml IV ONCE ONE Stop: 06/15/21 19:35 Last Admin: 06/15/21 19:36 Dose: 94 ml Documented by: [id number] Morphine Sulfate (Morphine Sulfate 2 Mg/Ml Carp) 2 mg IV NOW STA Stop: 06/15/21 18:01 Last Admin: 06/15/21 18:34 Dose: 2 mg Documented by: [id number] Morphine Sulfate (Morphine Sulfate 4 Mg/Ml 1 Ml Carp\\Vial) 4 mg IV NOW STA Stop: 06/15/21 22:09 Last Admin: 06/15/21 22:33 Dose: 4 mg Documented by: [id number] Ondansetron HCl (Ondansetron Inj 2 Mg/Ml 2 Ml Vial) 4 mg IV NOW STA Stop: 06/15/21 18:01 Last Admin: 06/15/21 18:34 Dose: 4 mg Documented by: [id number] Tramadol HCl (Tramadol Hcl 50 Mg Tablet) 50 mg PO NOW STA Stop: 06/15/21 21:51 Last Admin: 06/15/21 21:56 Dose: Not Given Documented by: [id number] Medical Decision Making Differential Diagnosis Wound infection, cellulitis, abscess, myositis, MRSA, Streptococcus, bacteremia Medical Records Attestation: I reviewed the patient's medical records. I did perform a limited focused review of portions of the patient's old chart on the electronic medical record. The patient was admitted for an infection of the left leg last month. She has been followed by the wound care clinic and last saw them 4 days ago. Previous cultures grew out group B strep from the left leg. She also had wound cultures from the right leg in 2020 which grew out staph aureus. Home Medications Current Medication List: was personally reviewed by me Laboratory Data Attestation: I reviewed the patient's lab results. Result diagrams: 06/15/21 21:04 06/15/21 17:05 Lab Results 06/15/21 06/15/21 06/15/21 Range/Units 17:05 17:05 17:05 WBC 16.61 H (4.8-10.8) K/uL RBC 4.20 (4.2-5.4) M/uL Hgb 11.9 L (12.0-16.0) g/dL Hct 37.7 (37-47) % MCV 89.8 (80-100) fL MCH 28.3 (25-34) pg MCHC 31.6 L (32-36) g/dL RDW Std Deviation 46.9 H (36.4-46.3) fL RDW Coeff of Jovany 14.3 (11.5-14.5) % Plt Count 385 (130-400) K/uL MPV 9.8 (7.4-10.4) fL Immature Gran % (Auto) 0.4 % Neut % (Auto) 90.3 % Lymph % (Auto) 2.8 % [place] % (Auto) 6.4 % Eos % (Auto) 0.0 % Baso % (Auto) 0.1 % Neut # (Auto) 14.99 H (1.4-6.5) K/uL Lymph # (Auto) 0.47 L (1.2-3.4) K/uL [place] # (Auto) 1.07 H (0.11-0.59) K/uL Eos # (Auto) 0.00 (0-0.5) K/uL Baso # (Auto) 0.01 (0-0.2) K/uL Immature Gran # (Auto) 0.07 H (0.00-0.02) K/uL PT 21.8 H (9.0-12.0) Seconds INR 2.1 H (0.9-1.1) APTT 46.3 H* (21.0-31.0) Seconds PTT Ratio 1.7 Sodium 135 L (136-145) mmol/L Potassium 3.5 (3.5-5.1) mmol/L Chloride 100 (98-107) mmol/L Carbon Dioxide 25 (21-32) mmol/L Anion Gap 10 (3-11) BUN 8 (6-23) mg/dl Creatinine 0.56 L (0.6-1.2) mg/dl Est Cr Clr Drug Dosing 71.9 ml/min Est GFR ( Amer) 113.4 ml/min Est GFR (Non-Af Amer) 97.8 ml/min BUN/Creatinine Ratio 14.3 (10-20) Glucose 113 H (70-99(Fasting)) mg/dl Lactate (0.4-2.0) mmol/L Calcium 9.7 (8.5-10.1) mg/dl Magnesium 1.9 (1.7-2.4) mg/dl Total Bilirubin 0.7 (0.2-1.0) mg/dl AST 21 (13-39) U/L ALT 16 (7-52) U/L Alkaline Phosphatase 61 (34-104) U/L Total Protein 7.6 (6.0-8.3) gm/dl Albumin 4.3 (3.4-5.0) gm/dl Globulin 3.3 (2.5-4.0) gm/dl Albumin/Globulin Ratio 1.3 (0.9-2) Urine Color Urine Appearance (Clear) Urine pH (4.5-7.5) Ur Specific [place] (1.000-1.030) Urine Protein (Negative) Urine Glucose (UA) (Negative) Urine Ketones (Negative) Urine Blood (Negative) Urine Nitrite (Negative) Urine Bilirubin (Negative) Urine Urobilinogen (Negative) Ur Leukocyte Esterase (Negative) Urine WBC (Auto) (0-5) /hpf Urine RBC (Auto) (0-4) /hpf U Hyaline Cast (Auto) (0-5) /lpf U Epithel Cells (Auto) (0-5) /lpf Urine Bacteria (Auto) (Negative) SARS-CoV-2, RNA, NAAT (NEGATIVE) 06/15/21 06/15/21 06/15/21 Range/Units 18:22 18:31 19:41 WBC (4.8-10.8) K/uL RBC (4.2-5.4) M/uL Hgb (12.0-16.0) g/dL Hct (37-47) % MCV (80-100) fL MCH (25-34) pg MCHC (32-36) g/dL RDW Std Deviation (36.4-46.3) fL RDW Coeff of Jovany (11.5-14.5) % Plt Count (130-400) K/uL MPV (7.4-10.4) fL Immature Gran % (Auto) % Neut % (Auto) % Lymph % (Auto) % [place] % (Auto) % Eos % (Auto) % Baso % (Auto) % Neut # (Auto) (1.4-6.5) K/uL Lymph # (Auto) (1.2-3.4) K/uL [place] # (Auto) (0.11-0.59) K/uL Eos # (Auto) (0-0.5) K/uL Baso # (Auto) (0-0.2) K/uL Immature Gran # (Auto) (0.00-0.02) K/uL PT (9.0-12.0) Seconds INR (0.9-1.1) APTT (21.0-31.0) Seconds PTT Ratio Sodium (136-145) mmol/L Potassium (3.5-5.1) mmol/L Chloride (98-107) mmol/L Carbon Dioxide (21-32) mmol/L Anion Gap (3-11) BUN (6-23) mg/dl Creatinine (0.6-1.2) mg/dl Est Cr Clr Drug Dosing ml/min Est GFR ( Amer) ml/min Est GFR (Non-Af Amer) ml/min BUN/Creatinine Ratio (10-20) Glucose (70-99(Fasting)) mg/dl Lactate 0.9 (0.4-2.0) mmol/L Calcium (8.5-10.1) mg/dl Magnesium (1.7-2.4) mg/dl Total Bilirubin (0.2-1.0) mg/dl AST (13-39) U/L ALT (7-52) U/L Alkaline Phosphatase (34-104) U/L Total Protein (6.0-8.3) gm/dl Albumin (3.4-5.0) gm/dl Globulin (2.5-4.0) gm/dl Albumin/Globulin Ratio (0.9-2) Urine Color Yellow Urine Appearance Clear (Clear) Urine pH 7.0 (4.5-7.5) Ur Specific [place] 1.003 (1.000-1.030) Urine Protein Negative (Negative) Urine Glucose (UA) Negative (Negative) Urine Ketones Negative (Negative) Urine Blood 1+ H (Negative) Urine Nitrite Negative (Negative) Urine Bilirubin Negative (Negative) Urine Urobilinogen Negative (Negative) Ur Leukocyte Esterase Negative (Negative) Urine WBC (Auto) 0 (0-5) /hpf Urine RBC (Auto) 0-4 (0-4) /hpf U Hyaline Cast (Auto) 0 (0-5) /lpf U Epithel Cells (Auto) 0-5 (0-5) /lpf Urine Bacteria (Auto) Negative (Negative) SARS-CoV-2, RNA, NAAT NEGATIVE (NEGATIVE) 06/15/21 Range/Units 21:04 WBC (4.8-10.8) K/uL RBC (4.2-5.4) M/uL Hgb 9.9 L (12.0-16.0) g/dL Hct 31.6 L (37-47) % MCV (80-100) fL MCH (25-34) pg MCHC (32-36) g/dL RDW Std Deviation (36.4-46.3) fL RDW Coeff of Jovany (11.5-14.5) % Plt Count (130-400) K/uL MPV (7.4-10.4) fL Immature Gran % (Auto) % Neut % (Auto) % Lymph % (Auto) % [place] % (Auto) % Eos % (Auto) % Baso % (Auto) % Neut # (Auto) (1.4-6.5) K/uL Lymph # (Auto) (1.2-3.4) K/uL [place] # (Auto) (0.11-0.59) K/uL Eos # (Auto) (0-0.5) K/uL Baso # (Auto) (0-0.2) K/uL Immature Gran # (Auto) (0.00-0.02) K/uL PT (9.0-12.0) Seconds INR (0.9-1.1) APTT (21.0-31.0) Seconds PTT Ratio Sodium (136-145) mmol/L Potassium (3.5-5.1) mmol/L Chloride (98-107) mmol/L Carbon Dioxide (21-32) mmol/L Anion Gap (3-11) BUN (6-23) mg/dl Creatinine (0.6-1.2) mg/dl Est Cr Clr Drug Dosing ml/min Est GFR ( Amer) ml/min Est GFR (Non-Af Amer) ml/min BUN/Creatinine Ratio (10-20) Glucose (70-99(Fasting)) mg/dl Lactate (0.4-2.0) mmol/L Calcium (8.5-10.1) mg/dl Magnesium (1.7-2.4) mg/dl Total Bilirubin (0.2-1.0) mg/dl AST (13-39) U/L ALT (7-52) U/L Alkaline Phosphatase (34-104) U/L Total Protein (6.0-8.3) gm/dl Albumin (3.4-5.0) gm/dl Globulin (2.5-4.0) gm/dl Albumin/Globulin Ratio (0.9-2) Urine Color Urine Appearance (Clear) Urine pH (4.5-7.5) Ur Specific [place] (1.000-1.030) Urine Protein (Negative) Urine Glucose (UA) (Negative) Urine Ketones (Negative) Urine Blood (Negative) Urine Nitrite (Negative) Urine Bilirubin (Negative) Urine Urobilinogen (Negative) Ur Leukocyte Esterase (Negative) Urine WBC (Auto) (0-5) /hpf Urine RBC (Auto) (0-4) /hpf U Hyaline Cast (Auto) (0-5) /lpf U Epithel Cells (Auto) (0-5) /lpf Urine Bacteria (Auto) (Negative) SARS-CoV-2, RNA, NAAT (NEGATIVE) Imaging Data Radiologist's Impression: Chest X-Ray 06/15/21 18:00 SINGLE VIEW CHEST CLINICAL HISTORY: Sepsis. FINDINGS: An AP, portable, upright chest radiograph is compared to study dated 09/17/2020 and correlated with chest CT dated 06/06/2011. The heart is mildly enlarged. The pulmonary vasculature is noncongested. Atelectasis is noted at the left lung base. A 12 mm nodular density projects of the left midlung. No large pleural effusion or pneumothorax is seen. The skeletal structures are osteopenic. The bony thorax is grossly intact. IMPRESSION: 1. Cardiomegaly with no acute cardiopulmonary abnormality. 2. There is a 12 mm nodular density projecting over the left midlung. Although this could be artifactual, correlation with a nonemergent chest CT is recommended to assess for underlying pulmonary lesion ACT 112: Negative or not required by law. Electronically signed by: Dung Bush M.D. 06/15/2021 6:[address] 06/15/21 18:00 CT SCAN OF THE RIGHT TIBIA AND FIBULA WITH IV CONTRAST CLINICAL HISTORY: Right leg pain and swelling. Erythema. COMPARISON STUDY: No priors. TECHNIQUE: Following the IV administration of 94 cc of Optiray 320, CT scan of the right tibia and fibula is performed from the distal femur to the ankle. Images are reviewed in the axial, sagittal, and coronal planes. IV contrast was administered without complication. A dose lowering technique was utilized adhering to the principles of ALARA. CT DOSE: 269.14 mGy.cm FINDINGS: The skeletal structures are osteopenic. There is no evidence of right tibial or fibular fracture. No bony erosion or periostitis is identified. The knee and ankle joints are grossly maintained. There is no significant knee joint effusion. Generalized atrophy is noted in the regional musculature. There is advanced atherosclerotic calcification of the regional arteries. These are patent as visualized. There is soft tissue thickening and subcutaneous fluid present throughout the right lower extremity, greatest in the mid to distal calf and around the ankle joint. A peripherally enhancing organized fluid collection is seen posteriorly in the mid calf overlying the medial head of the gastrocnemius muscle on axial image #235. This measures 6.2 x 3.4 x 1.8 cm. No soft tissue gas is seen. The Achilles tendon is intact as visualized. IMPRESSION: 1. No acute bony abnormality is seen involving the right tibia or fibula. 2. There is significant soft tissue edema and subcutaneous fluid seen throughout the right lower extremity as detailed above. This is typical for cellulitis, and clinical correlation will be required. 3. There is a 6.2 cm organized fluid collection in the posteromedial aspect of the mid calf overlying the gastrocnemius muscle, likely representing abscess. ACT 112: Negative or not required by law. Dictated: 06/15/2021 7:42 PM Transcribed: 06/15/2021 8:02 PM [facility] [id number] [facility] Electronically signed by: Dung Bush M.D. 06/15/2021 8:06 PM ECG Data Attestation: I personally reviewed and interpreted this ECG as follows: Indication: + tachycardia Rate (beats per minute): 98 Rhythm: + normal sinus ECG [place]: + Normal ECG ST segments: + T-wave inversions and + Nonspecific ST abnormalities ECG Findings: no PVCs Comparison ECG Date: from (10/07/2021) Change: no significant change MDM Narrative I did evaluate the patient as noted above. The patient is presenting with an infection to her right leg. She has had it for about 4 days now with a fever up to 101. On exam she has obvious cellulitis and possible abscess. IV access was established. I did order blood cultures and treated her with vancomycin IV based on her prior wound cultures. I did treat her with IV morphine and Zofran. I did place an order for continuous cardiac monitoring. The monitor showed normal sinus rhythm at a rate of 99 bpm. I did order and personally review the patient's 12-lead EKG as described above. She has no acute ischemic changes. She has nonspecific ST-T wave changes which were present on her previous EKG. She denies any chest pain or shortness of breath. I did order and personally reviewed the images of the patient's chest x-ray as described above. There is no evidence of infiltrate. I did order a urine analysis. She does not have a UTI. I did order and review the patient's blood work as noted in the electronic medical record. Her white count is elevated 16.6. Hemoglobin is 11.9. Platelet count is 385. INR is therapeutic at 2.1. Electrolytes are unremarkable other than a sodium 135. LFTs are unremarkable. Lactate is 0.9. I did order a CT of the right leg. I did review the images myself as well as the radiology report as described above. She has a fluid collection measuring 6.2 cm in the posterior medial aspect of the mid calf. This may represent an absce ss versus hematoma. She does state that she has had a hematoma in that area before. I did discuss the test results with the patient. She will be hospitalized for further care and evaluation. I did discuss the case with the hospitalist and case folder. Impression & Plan Cellulitis and abscess of right leg, Anticoagulated on Coumadin Discharge Plan Visit Data Chief Complaint: Infection Stated Complaint: R LEG INFECTION ED Provider: Param Montano Discharge Problem: Cellulitis and abscess of right leg, Anticoagulated on Coumadin Patient Disposition: Being Evaluated by Hospitalist Forms Stand Alone Forms: My [facility] Prescriptions Prescriptions: No Action cholecalciferol (vitamin D3) 1,000 unit capsule 1,000 units PO DAILY RF: 0 diphenoxylate-atropine [Lomotil] 2.5-0.025 mg tablet 2 tab PO BID RF: 0 levothyroxine [Synthroid] 75 mcg tablet 75 mcg PO .COMPLEX Qty: 30 RF: 5 budesonide 9 mg tablet,delayed and ext.release 9 mg PO DAILY RF: 0 simethicone [Gas-X Extra Strength] 125 mg capsule 125 mg PO DIRECTED PRN (Reason: Indigestion) RF: 0 calcium carbonate-vitamin D3 600 mg-5 mcg (200 unit) tablet 1 tab PO DAILY RF: 0 vitamin A 10,000 unit Capsule 2,400 unit PO DAILY RF: 0 ascorbic acid (vitamin C) [Vitamin C] 500 mg Tablet 500 mg PO DAILY RF: 0 zinc 50 mg Tablet 50 mg PO DAILY RF: 0 alosetron [Lotronex] 1 mg tablet 1 mg PO BID RF: 0 furosemide 20 mg tablet 20 mg PO BID RF: 0 warfarin 1 mg tablet 1 mg PO 5XWK RF: 0 doxycycline hyclate 100 mg capsule 100 mg PO AMHS RF: 0 clindamycin HCl 300 mg capsule 300 mg PO TID RF: 0 methylprednisolone 4 mg tablet 4 mg PO BID RF: 0 warfarin 1 mg tablet 2 mg PO 2XWK RF: 0 cyclosporine [Restasis] 0.05 % Dropperette 1 drp OPB Q12H RF: 0 Saline Nasal Mist 0.65 % Aerosol,[place] 1 spray INTRANASAL TID PRN (Reason: Congestion) RF: 0 acetaminophen [Tylenol Ex Str Rapid Release] 500 mg Tablet 1,000 mg PO TID PRN (Reason: Pain) RF: 0 Align 4 mg Capsule 4 mg PO DAILY PRN (Reason: Prophylaxis) RF: 0 colestipol [Colestid] 1 gram Tablet 1 g PO BID RF: 0 loperamide [Imodium A-D] 2 mg Tablet 4 mg PO BID RF: 0 Prolia 60 mg/mL Syringe 60 mg SUBCUT .TWICE YEARLY RF: 0 Referrals Referrals: Alexx Sepulveda DO [Primary Care Provider] -
[2021-06-15 18:13] LABS: Basophils # (auto) 0.01 K/uL (0-0.2); Basophils % (auto) 0.1 %; Hematocrit (blood only) 37.7 % (37-47); Hemoglobin 11.9 g/dL (12.0-16.0); Immature Granulocytes # (auto) 0.07 K/uL (0.00-0.02); Immature Granulocytes % (auto) 0.4 %; Lymphocytes # (auto) 0.47 K/uL (1.2-3.4); Lymphocytes % (auto) 2.8 %; Mean Corpuscular Hemoglobin 28.3 pg (25-34); Mean Corpuscular Hgb Conc 31.6 g/dL (32-36); Mean Corpuscular Volume 89.8 fL (80-100); Mean Platelet Volume 9.8 fL (7.4-10.4); Monocytes # (auto) 1.07 K/uL (0.11-0.59); Monocytes % (auto) 6.4 %; Neutrophils # (auto) 14.99 K/uL (1.4-6.5); Neutrophils % (auto) 90.3 %; Platelet Count 385 K/uL (130-400); RDW Coefficient of Variation 14.3 % (11.5-14.5); RDW Standard Deviation 46.9 fL (36.4-46.3); White Blood Count 16.61 K/uL (4.8-10.8)
--- NOTE | 2021-06-15 18:20 | XRay Report ---
SINGLE VIEW CHEST CLINICAL HISTORY: Sepsis. FINDINGS: An AP, portable, upright chest radiograph is compared to study dated 09/17/2020 and correlat ed with chest CT dated 06/06/2011. The heart is mildly enlarged. The pulmonary vasculature is nonconge sted. Atelectasis is noted at the left lung base. A 12 mm nodular density projects of the left midlun g. No large pleural effusion or pneumothorax is seen. The skeletal structures are osteopenic. The bon y thorax is grossly intact. IMPRESSION: 1. Cardiomegaly with no acute cardiopulmonary abnormality. 2. There is a 12 mm nodular density projecting over the left midlung. Although this could be artifact ual, correlation with a nonemergent chest CT is recommended to assess for underlying pulmonary lesion ACT 112: Negative or not required by law. Electronically signed by: Dung Bush M.D. 06/15/2021 6:18 PM
[2021-06-15 18:27] LABS: Albumin Globulin Ratio 1.3 (0.9-2); Albumin Level 4.3 gm/dl (3.4-5.0); BUN Creatinine Ratio 14.3 (10-20); Bilirubin,Total 0.7 mg/dl (0.2-1.0); Calcium 9.7 mg/dl (8.5-10.1); Creatinine Clr Calc Pharmacy 71.9 ml/min; Est GFR (African American) 113.4 ml/min; Est GFR (Non-African American) 97.8 ml/min; Globulin 3.3 gm/dl (2.5-4.0); Magnesium 1.9 mg/dl (1.7-2.4); Potassium 3.5 mmol/L (3.5-5.1); Total Protein 7.6 gm/dl (6.0-8.3)
[2021-06-15 18:45] LABS: INR 2.1 (0.9-1.1); Partial Thromboplastin Ratio 1.7; Prothrombin Time 21.8 Seconds (9.0-12.0)
[2021-06-15 18:55] LABS: Partial Thromboplastin Time 46.3 Seconds (21.0-31.0)
[2021-06-15 18:56] LABS: Appearance Urine Clear (Clear); Bacteria Urine Automated Negative (Negative); Bilirubin Urine Negative (Negative); Blood Urine 1+ (Negative); Cast Urine Automated 0 /lpf (0-5); Color Urine Yellow; Epithelial Cell Urine Auto 0-5 /lpf (0-5); Glucose Urine UA Negative (Negative); Ketones Urine Negative (Negative); Leukocyte Esterase Urine Negative (Negative); Nitrite Urine Negative (Negative); Protein Urine Negative (Negative); RBC Urine Automated 0-4 /hpf (0-4); Specific Gravity Urine 1.003 (1.000-1.030); Urobilinogen Urine Negative (Negative); WBC Urine Automated 0 /hpf (0-5)
[2021-06-15] MEDS ORDERED: OPTIRAY 320 100ml IV ONE (19:34)
--- NOTE | 2021-06-15 20:09 | CT Scan Report ---
CT SCAN OF THE RIGHT TIBIA AND FIBULA WITH IV CONTRAST CLINICAL HISTORY: Right leg pain and swelling. Erythema. COMPARISON STUDY: No priors. TECHNIQUE: Following the IV administration of 94 cc of Optiray 320, CT scan of the right tibia and fi bula is performed from the distal femur to the ankle. Images are reviewed in the axial, sagittal, and coronal planes. IV contrast was administered without complication. A dose lowering technique was uti lized adhering to the principles of ALARA. CT DOSE: 269.14 mGy.cm FINDINGS: The skeletal structures are osteopenic. There is no evidence of right tibial or fibular fra cture. No bony erosion or periostitis is identified. The knee and ankle joints are grossly maintained . There is no significant knee joint effusion. Generalized atrophy is noted in the regional musculatu re. There is advanced atherosclerotic calcification of the regional arteries. These are patent as vis ualized. There is soft tissue thickening and subcutaneous fluid present throughout the right lower ex tremity, greatest in the mid to distal calf and around the ankle joint. A peripherally enhancing orga nized fluid collection is seen posteriorly in the mid calf overlying the medial head of the gastrocne mius muscle on axial image #235. This measures 6.2 x 3.4 x 1.8 cm. No soft tissue gas is seen. The Ac hilles tendon is intact as visualized. IMPRESSION: 1. No acute bony abnormality is seen involving the right tibia or fibula. 2. There is significant soft tissue edema and subcutaneous fluid seen throughout the right lower extr emity as detailed above. This is typical for cellulitis, and clinical correlation will be required. 3. There is a 6.2 cm organized fluid collection in the posteromedial aspect of the mid calf overlying the gastrocnemius muscle, likely representing abscess. ACT 112: Negative or not required by law. Dictated: 06/15/2021 7:42 PM Transcribed: 06/15/2021 8:02 PM Darya [id number] LEANNE_Jewell Electronically signed by: Dung Bush M.D. 06/15/2021 8:06 PM
[2021-06-15] MEDS ORDERED: CEFEPIME 2,000 MG/20 ML VIAL IV STA (20:49)
[2021-06-15] MEDS ORDERED: MAGNESIUM SULFATE / D5W 1 GM/100 ML BAG IV ONE (21:00)
[2021-06-15 21:13] LABS: Hematocrit (blood only) 31.6 % (37-47); Hemoglobin 9.9 g/dL (12.0-16.0)
[2021-06-15] MEDS ORDERED: traMADol HCL 50 MG TABLET PO STA (21:50)
[2021-06-15] MEDS ORDERED: oxyCODONE HCL IR 5 MG TAB (IMMEDIATE RELEASE) PO PRN (22:04)
[2021-06-15] MEDS ORDERED: LORazepam 2 MG/1 ML VIAL IV PRN (22:06)
[2021-06-15] MEDS ORDERED: MoRPHine SULFATE 4 MG/ML 1 ML CARP\\VIAL IV STA (22:08)
[2021-06-15] MEDS ORDERED: PHYTONADIONE 10 MG in SODIUM CHLORIDE 0.9% 50 ML IV SCH (22:30)
--- NOTE | 2021-06-15 23:48 | History & Physical Report ---
Date of Service June 15, 2021 Assessment & Plan (1) Sepsis: Plan: Secondary to RLE abscess/infected hematoma hx chronic venous insufficiency History LE DVT on Coumadin, INR therapeutic immunocompromised patient, hx vasculitis/Sjogren's syndrome/seronegative polyart hritis on chronic steroid Rx Anemia secondary to hematoma in the setting of Coumadin coagulopathy hypertension, elevated secondary discomfort (Currently not on maintenance medications due to baseline low blood pressure of late as per patient) hypothyroidism, euthyroid as of recent outpatient TSH Steroid-induced hyperglycemia Possible pulmonary nodule on chest x-ray past tobacco abuse Medical telemetry CS, Vancomycin, Cefepime Vitamin K for Coumadin coagulopathy in the setting of hematoma causing hemoglobin drop Stop Coumadin Consider permanent cessation of Coumadin Rx given bleeding complications and therapy more than 6 months (Will request AM provider to discuss with patient's G radiologic technologist mammogram who is familiar with patient ) Follow H&H, transfuse PRBC if hemoglobin less than 7 and or for symptomatic anemia Orthopedics consult Re: RLE abscess N.p.o. until patient seen by orthopedics in a.m. anticipation of procedure CT chest Re: Abnormal 6-day, possible SPN DVT prophylaxis. SCDs Re: RLE hematoma Full code Patient requesting update providers. Mr. Lc Dean, contact #[phone]. Text document was generated using [employer] voice recognition software. It may contain grammatical or spelling errors. Kindly contact undersigned for clarification of any documentation item in question. Addendum : Vitamin K administered for Coumadin coagulopathy. Patient developed chest pain and abdominal pain within minutes of vitamin K administration. IV vitamin K stopped. Patient ADR list updated. History of Present Illness Chief Complaint: Worsening RLE swelling/pain Primary Care Provider: Alexx Sepulveda DO History obtained from patient, family, and records. Medical history significant for hypertension, pulmonary hypertension as per records, hypothyroidism, vasculitis/seronegative polyarthritis/Sjogren's syndrome on chronic steroid Rx, IBS/collagenous colitis as per records, hypothyroidism, chronic venous insufficiency history DVT on Coumadin (09/2020), past tobacco abuse. Last confinement April 2021 for traumatic left leg wound/cellulitis. Wound CS group B strep. Patient discharged on Keflex course. LLE wound/hematoma improving as per outpatient [facility] wound care visit last week. Patient developed a small wound/hematoma on the right lower leg (above the ankle) few weeks ago. Patient and attribute swelling to ABIs done at wound care office. Increased swelling noted since last week. Debridement done during last week's wound care visit. 3 days ago, patient noted worsening swelling and pain on the right leg. No fever, no chills, no chest pain, no S OB. Patient also complaining headache symptoms different from her usual migraine attacks. Patient seen at PCPs office 2 days ago. Clindamycin and doxycycline prescribed for RLE cellulitis. Patient told to increase Lasix. Advised to go to ER for worsening symptoms. Patient brought to the ER for worsening right leg swelling and pain. IV vancomycin given for sepsis. Medical Historyas above Surgical History : Laser brachioplasty, laparoscopic abdominal tumor removal, cataract surgeries Family History : Heart disease, kidney stones Personal/Social history : Past tobacco abuse, no EtOH intake, office work Allergies Allergy/AdvReac Type Severity Reaction Status Date / Time amoxicillin [From Augmentin] AdvReac Intermediate Vomiting Verified 06/15/21 16:48 clavulanic acid AdvReac Intermediate Vomiting Verified 06/15/21 16:48 [From Augmentin] phytonadione (vitamin K1) AdvReac Intermediate chest/abd Verified 06/15/21 23:47 pain sulfamethoxazole AdvReac Intermediate NAUSEA/VOMI Verified 06/15/21 16:48 TING trimethoprim AdvReac Intermediate NAUSEA/VOMI Verified 06/15/21 16:48 TING cephalexin [From Keflex] AdvReac Mild Nausea Verified 06/15/21 16:48 tramadol AdvReac Vomiting Unverified 06/15/21 21:47 Home Medications Medication Instructions Recorded Confirmed Type cholecalciferol (vitamin D3) 25 1,000 units PO DAILY 11/16/17 06/15/21 History mcg (1,000 unit) capsule budesonide 9 mg tablet,delayed and 9 mg PO DAILY 11/22/18 06/15/21 History extended release simethicone 125 mg capsule (Gas-X 125 mg PO DIRECTED PRN cap 07/01/20 06/15/21 History Extra Strength) ascorbic acid (vitamin C) 500 mg 500 mg PO DAILY 09/17/20 06/15/21 History tablet (Vitamin C) vitamin A 10,000 unit capsule 2,400 unit PO DAILY 09/17/20 06/15/21 History zinc 50 mg tablet 50 mg PO DAILY 09/17/20 06/15/21 History alosetron 1 mg tablet (Lotronex) 1 mg PO BID 11/29/20 06/15/21 History furosemide 20 mg tablet 20 mg PO BID 11/29/20 06/15/21 History warfarin 1 mg tablet 1 mg PO 5XWK 11/29/20 06/15/21 History diphenoxylate-atropine 2.5 2 tab PO BID tab 01/02/21 06/15/21 History mg-0.025 mg tablet (Lomotil) Synthroid 75 mcg tablet 75 mcg PO .COMPLEX #30 tab NS 02/03/21 06/15/21 Rx (levothyroxine) calcium carbonate 600 mg-vitamin 1 tab PO DAILY tab 05/07/21 06/15/21 History D3 5 mcg (200 unit) tablet Bifidobacterium infantis 4 mg 4 mg PO DAILY PRN 06/15/21 06/15/21 History capsule (Align) acetaminophen 500 mg tablet 1,000 mg PO TID PRN 06/15/21 06/15/21 History clindamycin HCl 300 mg capsule 300 mg PO TID 06/15/21 06/15/21 History colestipol 1 gram tablet (Colestid) 1 g PO BID 06/15/21 06/15/21 History cyclosporine 0.05 % eye drops in a 1 drp OPB Q12H 06/15/21 06/15/21 History dropperette (Restasis) denosumab 60 mg/mL subcutaneous 60 mg SUBCUT .TWICE YEARLY 06/15/21 06/15/21 History syringe (Prolia) doxycycline hyclate 100 mg capsule 100 mg PO AMHS 06/15/21 06/15/21 History loperamide 2 mg tablet (Imodium 4 mg PO BID 06/15/21 06/15/21 History A-D) methylprednisolone 4 mg tablet 4 mg PO BID 06/15/21 06/15/21 History sodium chloride 0.65 % nasal spray 1 spray INTRANASAL TID PRN 06/15/21 06/15/21 History aerosol (Saline Nasal Mist) warfarin 1 mg tablet 2 mg PO 2XWK 06/15/21 06/15/21 History Past Med/Surg History Medical History Cellulitis Chronic steroid use Colitis DVT (deep venous thrombosis) Surinder's disease Hypothyroidism Lab test negative for COVID-19 virus Leg pain, left Localized swelling of both lower legs Migraine headache Osteopenia Polyarthritis Sjogrens syndrome Vasculitis Surgical History H/O detached retina repair History of laparoscopy Hx of cataract surgery both eyes Hx of dilation and curettage Hx of wisdom tooth extraction Family History Mother Rheumatic heart disease Bacterial endocarditis Father Gout Social History Smoking Status: Former smoker Tobacco Type: Cigarettes Second Hand Exposure: No; Do You Dip or Chew Tobacco: No; Tobacco Cessation Education Requested by Patient: No Hx Alcohol Use: No Hx Substance Use: No Preferred Language: Uzbek Communication Ability: Effective Client Support Associate Required: No Beliefs That Will Affect Care: None Current Living Situation: Spouse Current Living Situation Comment: Lives at home with Other Information That Helps Us Care for You: No Feels Safe at Home: Yes Safety Concerns: Feels Safe At This Time Assistive Devices: Walker Review of Systems Review of Systems: As per HPI, all 10 systems reviewed, all other ROS negative Physical Exam Physical Exam: GENERAL: Anxious, uncomfortable, no respiratory distress SKIN: Pallor , warm HEENT: Pale palpebral conjunctivae, no ptosis, dry buccal mucosa NECK : Supple, no tenderness CHEST : CTA, no tenderness HEART : RRR, no obvious murmurs ABDOMEN: Some distention, nontender EXTREMITIES : Bilateral LE swelling, tender indurated RLE with ulcerated wound above right ankle, dressing over LLE, no other conspicuous deformities noted NEUROLOGIC : Coherent, no facial asymmetry, no other gross focality Results & Data Results & Data ([facility]) Vital Signs (Past 12 Hours) Vital Signs Temp Pulse Pulse Resp BP BP Pulse Ox 06/15/21 23:44 93 H 27 H 152/84 H 98 06/15/21 23:43 93 H 22 163/122 H 98 06/15/21 23:37 22 97 06/15/21 23:36 88 21 141/82 H 96 06/15/21 23:00 91 H 18 154/96 H 98 06/15/21 22:32 96 H 158/85 H 99 06/15/21 21:30 37 C 99 H 31 H 06/15/21 21:00 92 H 19 97 06/15/21 20:30 92 H 13 174/95 H 98 06/15/21 20:00 100 H 20 98 06/15/21 19:42 107 H 27 H 99 06/15/21 19:03 93 H 15 98 06/15/21 18:57 174/95 H 06/15/21 16:28 36.7 C 107 H 20 162/92 H 98 Laboratory Results Laboratory Results WBC 16.61 K/uL (4.8-10.8) H 06/15/21 17:05 RBC 4.20 M/uL (4.2-5.4) 06/15/21 17:05 Hgb 9.9 g/dL (12.0-16.0) L 06/15/21 21:04 Hct 31.6 % (37-47) L 06/15/21 21:04 MCV 89.8 fL (80-100) 06/15/21 17:05 MCH 28.3 pg (25-34) 06/15/21 17:05 MCHC 31.6 g/dL (32-36) L 06/15/21 17:05 RDW Std Deviation 46.9 fL (36.4-46.3) H 06/15/21 17:05 RDW Coeff of Jovany 14.3 % (11.5-14.5) 06/15/21 17:05 Plt Count 385 K/uL (130-400) 06/15/21 17:05 MPV 9.8 fL (7.4-10.4) 06/15/21 17:05 Immature Gran % (Auto) 0.4 % 06/15/21 17:05 Neut % (Auto) 90.3 % 06/15/21 17:05 Lymph % (Auto) 2.8 % 06/15/21 17:05 [place] % (Auto) 6.4 % 06/15/21 17:05 Eos % (Auto) 0.0 % 06/15/21 17:05 Baso % (Auto) 0.1 % 06/15/21 17:05 Neut # (Auto) 14.99 K/uL (1.4-6.5) H 06/15/21 17:05 Lymph # (Auto) 0.47 K/uL (1.2-3.4) L 06/15/21 17:05 [place] # (Auto) 1.07 K/uL (0.11-0.59) H 06/15/21 17:05 Eos # (Auto) 0.00 K/uL (0-0.5) 06/15/21 17:05 Baso # (Auto) 0.01 K/uL (0-0.2) 06/15/21 17:05 Immature Gran # (Auto) 0.07 K/uL (0.00-0.02) H 06/15/21 17:05 PT 21.8 Seconds (9.0-12.0) H 06/15/21 17:05 INR 2.1 (0.9-1.1) H 06/15/21 17:05 APTT 46.3 Seconds (21.0-31.0) H* 06/15/21 17:05 PTT Ratio 1.7 06/15/21 17:05 Sodium 135 mmol/L (136-145) L 06/15/21 17:05 Potassium 3.5 mmol/L (3.5-5.1) 06/15/21 17:05 Chloride 100 mmol/L (98-107) 06/15/21 17:05 Carbon Dioxide 25 mmol/L (21-32) 06/15/21 17:05 Anion Gap 10 (3-11) 06/15/21 17:05 BUN 8 mg/dl (6-23) 06/15/21 17:05 Creatinine 0.56 mg/dl (0.6-1.2) L 06/15/21 17:05 Est Cr Clr Drug Dosing 71.9 ml/min 06/15/21 17:05 Est GFR ( Amer) 113.4 ml/min 06/15/21 17:05 Est GFR (Non-Af Amer) 97.8 ml/min 06/15/21 17:05 BUN/Creatinine Ratio 14.3 (10-20) 06/15/21 17:05 Glucose 113 mg/dl (70-99(Fasting)) H 06/15/21 17:05 Lactate 0.9 mmol/L (0.4-2.0) 06/15/21 18:22 Calcium 9.7 mg/dl (8.5-10.1) 06/15/21 17:05 Magnesium 1.9 mg/dl (1.7-2.4) 06/15/21 17:05 Total Bilirubin 0.7 mg/dl (0.2-1.0) 06/15/21 17:05 AST 21 U/L (13-39) 06/15/21 17:05 ALT 16 U/L (7-52) 06/15/21 17:05 Alkaline Phosphatase 61 U/L (34-104) 06/15/21 17:05 Total Protein 7.6 gm/dl (6.0-8.3) 06/15/21 17:05 Albumin 4.3 gm/dl (3.4-5.0) 06/15/21 17:05 Globulin 3.3 gm/dl (2.5-4.0) 06/15/21 17:05 Albumin/Globulin Ratio 1.3 (0.9-2) 06/15/21 17:05 Urine Color Yellow 06/15/21 18:31 Urine Appearance Clear (Clear) 06/15/21 18:31 Urine pH 7.0 (4.5-7.5) 06/15/21 18:31 Ur Specific [place] 1.003 (1.000-1.030) 06/15/21 18:31 Urine Protein Negative (Negative) 06/15/21 18:31 Urine Glucose (UA) Negative (Negative) 06/15/21 18:31 Urine Ketones Negative (Negative) 06/15/21 18:31 Urine Blood 1+ (Negative) H 06/15/21 18:31 Urine Nitrite Negative (Negative) 06/15/21 18:31 Urine Bilirubin Negative (Negative) 06/15/21 18:31 Urine Urobilinogen Negative (Negative) 06/15/21 18:31 Ur Leukocyte Esterase Negative (Negative) 06/15/21 18:31 Urine WBC (Auto) 0 /hpf (0-5) 06/15/21 18:31 Urine RBC (Auto) 0-4 /hpf (0-4) 06/15/21 18:31 U Hyaline Cast (Auto) 0 /lpf (0-5) 06/15/21 18:31 U Epithel Cells (Auto) 0-5 /lpf (0-5) 06/15/21 18:31 Urine Bacteria (Auto) Negative (Negative) 06/15/21 18:31 SARS-CoV-2, RNA, NAAT NEGATIVE (NEGATIVE) 06/15/21 19:41 Blood Type A Positive 06/15/21 21:04 Antibody Screen NEGATIVE 06/15/21 21:04 Impressions Chest X-Ray 06/15/21 18:00 SINGLE VIEW CHEST CLINICAL HISTORY: Sepsis. FINDINGS: An AP, portable, upright chest radiograph is compared to study dated 09/17/2020 and correlated with chest CT dated 06/06/2011. The heart is mildly enlarged. The pulmonary vasculature is noncongested. Atelectasis is noted at the left lung base. A 12 mm nodular density projects of the left midlung. No large pleural effusion or pneumothorax is seen. The skeletal structures are osteopenic. The bony thorax is grossly intact. IMPRESSION: 1. Cardiomegaly with no acute cardiopulmonary abnormality. 2. There is a 12 mm nodular density projecting over the left midlung. Although this could be artifactual, correlation with a nonemergent chest CT is recommended to assess for underlying pulmonary lesion ACT 112: Negative or not required by law. Electronically signed by: Dung Bush M.D. 06/15/2021 6:[address] 06/15/21 18:00 CT SCAN OF THE RIGHT TIBIA AND FIBULA WITH IV CONTRAST CLINICAL HISTORY: Right leg pain and swelling. Erythema. COMPARISON STUDY: No priors. TECHNIQUE: Following the IV administration of 94 cc of Optiray 320, CT scan of the right tibia and fibula is performed from the distal femur to the ankle. Images are reviewed in the axial, sagittal, and coronal planes. IV contrast was administered without complication. A dose lowering technique was utilized adhering to the principles of ALARA. CT DOSE: 269.14 mGy.cm FINDINGS: The skeletal structures are osteopenic. There is no evidence of right tibial or fibular fracture. No bony erosion or periostitis is identified. The knee and ankle joints are grossly maintained. There is no significant knee joint effusion. Generalized atrophy is noted in the regional musculature. There is advanced atherosclerotic calcification of the regional arteries. These are patent as visualized. There is soft tissue thickening and subcutaneous fluid present throughout the right lower extremity, greatest in the mid to distal calf and around the ankle joint. A peripherally enhancing organized fluid collection is seen posteriorly in the mid calf overlying the medial head of the gastrocnemius muscle on axial image #235. This measures 6.2 x 3.4 x 1.8 cm. No soft tissue gas is seen. The Achilles tendon is intact as visualized. IMPRESSION: 1. No acute bony abnormality is seen involving the right tibia or fibula. 2. There is significant soft tissue edema and subcutaneous fluid seen throughout the right lower extremity as detailed above. This is typical for cellulitis, and clinical correlation will be required. 3. There is a 6.2 cm organized fluid collection in the posteromedial aspect of the mid calf overlying the gastrocnemius muscle, likely representing abscess. ACT 112: Negative or not required by law. Dictated: 06/15/2021 7:42 PM Transcribed: 06/15/2021 8:02 PM Darya [id number] LEANNE_Jewell Electronically signed by: Dung Bush M.D. 06/15/2021 8:[address] head initial read: No acute intracranial hemorrhage, hydrocephalus, edema, or mass effect. Paranasal sinuses and mastoid air cells are clear EKG as per my interpretation rate 95, NSR, normal axis, septal infarct, diffuse T wave abnormalities Code Status & VTE Plan VTE Prophylaxis Plan VTE Prophylaxis will be ordered: Yes
[2021-06-16] MEDS ORDERED: NON-FORMULARY MEDICATION (Bifidobacterium Infantis [Align] 4 mg Capsule) PO PRN (01:35)
[2021-06-16] MEDS ORDERED: PROMETHAZINE HCL 6.25 MG in SODIUM CHLORIDE 0.9% 50 ML IV PRN (01:35)
[2021-06-16] MEDS ORDERED: ACETAMINOPHEN 325 MG TAB PO PRN (01:35)
[2021-06-16] MEDS: LACTATED RINGER'S 1,000 ML IV SCH (02:02)
--- NOTE | 2021-06-16 02:10 | Pharmacy Report ---
Pharmacy Abx Initial Consult - Date of Service June 16, 2021 - Pharmacy Dosing Scope Date of Consult: 06/16/21 Consultation requested by: Dr. Bill Pharmacy is consulted to initiate Vancomycin IV dosing therapy, order appropriate labs and adjust drug dose/frequency. - Subjective The patient is a 66 year old F admitted on 06/15/21 23:06. - Objective Height: 5 ft Weight: 52.2 kg Vital Signs (Past 12hrs): Vital Signs Temp Pulse Pulse Resp BP BP Pulse Ox 06/16/21 01:00 89 19 154/88 H 98 06/16/21 00:30 83 22 142/84 H 98 06/16/21 00:00 87 27 H 144/84 H 97 06/15/21 23:45 88 20 152/84 H 99 06/15/21 23:44 93 H 27 H 152/84 H 98 06/15/21 23:43 93 H 22 163/122 H 98 06/15/21 23:37 22 97 06/15/21 23:36 88 21 141/82 H 96 06/15/21 23:00 91 H 18 154/96 H 98 06/15/21 22:32 96 H 158/85 H 99 06/15/21 21:30 37 C 99 H 31 H 06/15/21 21:00 92 H 19 97 06/15/21 20:30 92 H 13 174/95 H 98 06/15/21 20:00 100 H 20 98 06/15/21 19:42 107 H 27 H 99 06/15/21 19:03 93 H 15 98 06/15/21 18:57 174/95 H 06/15/21 16:28 36.7 C 107 H 20 162/92 H 98 Lab Results (24hrs): Laboratory Tests (24 Hours) 06/15/21 06/15/21 17:05 17:05 WBC 16.61 H Neut # (Auto) 14.99 H Creatinine 0.56 L Est Cr Clr Drug Dosing 71.9 Micro Results: 06/16/21 00:12 Gram Stain - Pending Leg,Right Wound Culture - Pending 06/15/21 18:22 Aerobic Blood Culture - Pending Blood Anaerobic Blood Culture - Pending 06/15/21 17:05 Aerobic Blood Culture - Pending Blood Anaerobic Blood Culture - Pending - Risk Factors for Resistance * Antimicrobial use within the last 90 days Clindamycin PO, Doxycycline PO - Assessment & Plan Assessment 66 year old F admitted with sepsis secondary to right leg wound/infection Plan Vancomycin IV * Loading dose: 1000mg (~19 mg/kg) * Maintenance dose: 750mg IV (~14 mg/kg) every 12 hours * Goal trough level for SST: 15 to 20 mcg/mL * Trough level ordered for 06/17/21 @ 0600 * AUC/ANDER is the preferred PK/PD target for vancomycin * AUC guided dosing is effective and associated with decreased risk of nephrotoxicity compared to traditional trough targets * The above dose is predicted to achieve target AUC/ANDER of 400-600 mg/L.hr and may be associated with a 9% risk of nephrotoxicity Pharmacy will continue to follow and will adjust dose/frequency as necessary. Thank you.
[2021-06-16] MEDS ORDERED: cloNIDine HCL 0.1 MG TAB PO ONE (03:27)
[2021-06-16] MEDS: CEFEPIME 2,000 MG in SYRINGE 0 ML IV SCH ×3 (05:04→23:59)
[2021-06-16] MEDS: LEVOTHYROXINE SODIUM 75 MCG TABLET PO SCH (05:04)
[2021-06-16] MEDS: VANCOMYCIN HCL 750 MG in SODIUM CHLORIDE 0.9% 250 ML IV SCH ×2 (05:04→17:28)
[2021-06-16 06:30] LABS: Basophils # (auto) 0.01 K/uL (0-0.2); Basophils % (auto) 0.1 %; Hematocrit (blood only) 31.2 % (37-47); Hemoglobin 9.8 g/dL (12.0-16.0); Immature Granulocytes # (auto) 0.08 K/uL (0.00-0.02); Immature Granulocytes % (auto) 0.5 %; Lymphocytes # (auto) 0.81 K/uL (1.2-3.4); Lymphocytes % (auto) 5.3 %; Mean Corpuscular Hemoglobin 28.2 pg (25-34); Mean Corpuscular Hgb Conc 31.4 g/dL (32-36); Mean Corpuscular Volume 89.9 fL (80-100); Mean Platelet Volume 9.6 fL (7.4-10.4); Monocytes # (auto) 1.35 K/uL (0.11-0.59); Monocytes % (auto) 8.9 %; Neutrophils # (auto) 12.91 K/uL (1.4-6.5); Neutrophils % (auto) 85.2 %; Platelet Count 309 K/uL (130-400); RDW Coefficient of Variation 14.4 % (11.5-14.5); RDW Standard Deviation 47.4 fL (36.4-46.3); Red Blood Count 3.47 M/uL (4.2-5.4); White Blood Count 15.16 K/uL (4.8-10.8)
[2021-06-16 06:38] LABS: INR 1.5 (0.9-1.1); Prothrombin Time 15.4 Seconds (9.0-12.0)
--- NOTE | 2021-06-16 06:52 | CT Scan Report ---
CT head/brain wo con CLINICAL HISTORY: 66 years-old Female with sarabia. Acute headache TECHNIQUE: Multiple axial CT images of the head were obtained without contrast. A dose lowering tech nique was utilized adhering to the principles of ALARA. CT DOSE: 537.48 mGy.cm COMPARISON: None. FINDINGS: No acute intracranial hemorrhage, midline shift, intracranial mass, hydrocephalus, territorial ischem ia or abnormal extra-axial collection. Mild involutional changes. The calvarium is intact. Metopic suture. Prior bilateral lens repair. The paranasal sinuses, mastoid air cells, and middle ear cavities are clear. IMPRESSION: No acute intracranial abnormality. ACT 112: Negative or not required by law. The above report was generated using voice recognition software. It may contain grammatical, syntax o r spelling errors. Electronically signed by: Yoan William M.D. 06/16/2021 6:50 AM
[2021-06-16 06:59] LABS: Calcium 8.5 mg/dl (8.5-10.1); Creatinine Clr Calc Pharmacy 115.1 ml/min; Est GFR (African American) 132.4 ml/min; Est GFR (Non-African American) 114.2 ml/min; Potassium 3.9 mmol/L (3.5-5.1)
[2021-06-16] MEDS ORDERED: RESTASIS - ORDER AWAITING ACTION SCH (08:00)
[2021-06-16] MEDS: methylPREDNISolone 4 MG TAB PO SCH ×2 (08:55→20:02)
[2021-06-16] MEDS: BUDESONIDE EC 3 MG CAP PO SCH (08:56)
[2021-06-16] MEDS: COLESTIPOL HCL 1 GM TAB PO SCH ×2 (08:56→20:02)
--- NOTE | 2021-06-16 10:21 | Orthopedic Consultation ---
Date of Service June 16, 2021 Assessment & Plan (1) Cellulitis and abscess of right leg: I discussed with her the diagnosis and treatment options at bedside. I recommended open I&D of the right leg abscess. She would like to proceed. I explained to her the risk, benefits, and alternatives to the procedure and she elected proceed. Questions were answered at bedside. Consents were signed. Time was spent department suture and post expectations. The decision was made for surgery later today. She is not currently n.p.o. History of Present Illness Reason for Consultation: Abscess right leg. Requesting Physician: . Attending Physician: Sanjeev Aly MD Charity is a pleasant 66-year-old female who is venous stasis and swelling of both legs. She is also on anticoagulants. She has been dealing with a wound of her left leg and seeing wound care for that. She also has a history of a hematoma in her right leg. She recently sustained a small cut on the inferior aspect of her right leg. Is been treated by wound care. There was a debridement of the area a few days ago and she began having increased cellulitis and now significant pain where the hematoma was in her right leg. She came to the emergency room. She had an elevated white count. A CT scan of the right leg was suggestive of an abscess. Orthopedics was consulted to evaluate and treat. Allergies Allergy/AdvReac Type Severity Reaction Status Date / Time amoxicillin [From Augmentin] AdvReac Intermediate Vomiting Verified 06/15/21 16:48 clavulanic acid AdvReac Intermediate Vomiting Verified 06/15/21 16:48 [From Augmentin] phytonadione (vitamin K1) AdvReac Intermediate chest/abd Verified 06/15/21 23:47 pain sulfamethoxazole AdvReac Intermediate NAUSEA/VOMI Verified 06/15/21 16:48 TING trimethoprim AdvReac Intermediate NAUSEA/VOMI Verified 06/15/21 16:48 TING cephalexin [From Keflex] AdvReac Mild Nausea Verified 06/15/21 16:48 tramadol AdvReac Vomiting Unverified 06/15/21 21:47 Home Medications Medication Instructions Recorded Confirmed Type cholecalciferol (vitamin D3) 25 1,000 units PO DAILY 11/16/17 06/15/21 History mcg (1,000 unit) capsule budesonide 9 mg tablet,delayed and 9 mg PO DAILY 11/22/18 06/15/21 History extended release simethicone 125 mg capsule (Gas-X 125 mg PO DIRECTED PRN cap 07/01/20 0 06/15/21 History Extra Strength) ascorbic acid (vitamin C) 500 mg 500 mg PO DAILY 09/17/20 06/15/21 History tablet (Vitamin C) vitamin A 10,000 unit capsule 2,400 unit PO DAILY 09/17/20 06/15/21 History zinc 50 mg tablet 50 mg PO DAILY 09/17/20 06/15/21 History alosetron 1 mg tablet (Lotronex) 1 mg PO BID 11/29/20 06/15/21 History furosemide 20 mg tablet 20 mg PO BID 11/29/20 06/15/21 History warfarin 1 mg tablet 1 mg PO 5XWK 11/29/20 06/15/21 History diphenoxylate-atropine 2.5 2 tab PO BID tab 01/02/21 06/15/21 History mg-0.025 mg tablet (Lomotil) Synthroid 75 mcg tablet 75 mcg PO .COMPLEX #30 tab NS 02/03/21 06/15/21 Rx (levothyroxine) calcium carbonate 600 mg-vitamin 1 tab PO DAILY tab 05/07/21 06/15/21 History D3 5 mcg (200 unit) tablet Bifidobacterium infantis 4 mg 4 mg PO DAILY PRN 06/15/21 06/15/21 History capsule (Align) acetaminophen 500 mg tablet 1,000 mg PO TID PRN 06/15/21 06/15/21 History clindamycin HCl 300 mg capsule 300 mg PO TID 06/15/21 06/15/21 History colestipol 1 gram tablet (Colestid) 1 g PO BID 06/15/21 06/15/21 History cyclosporine 0.05 % eye drops in a 1 drp OPB Q12H 06/15/21 06/15/21 History dropperette (Restasis) denosumab 60 mg/mL subcutaneous 60 mg SUBCUT .TWICE YEARLY 06/15/21 06/15/21 History syringe (Prolia) doxycycline hyclate 100 mg capsule 100 mg PO AMHS 06/15/21 06/15/21 History loperamide 2 mg tablet (Imodium 4 mg PO BID 06/15/21 06/15/21 History A-D) methylprednisolone 4 mg tablet 4 mg PO BID 06/15/21 06/15/21 History sodium chloride 0.65 % nasal spray 1 spray INTRANASAL TID PRN 06/15/21 06/15/21 History aerosol (Saline Nasal Mist) warfarin 1 mg tablet 2 mg PO 2XWK 06/15/21 06/15/21 History Past Med/Surg History Medical History Cellulitis Chronic steroid use Colitis DVT (deep venous thrombosis) Surinder's disease Hypothyroidism Lab test negative for COVID-19 virus Leg pain, left Localized swelling of both lower legs Migraine headache Osteopenia Polyarthritis Sjogrens syndrome Vasculitis Surgical History H/O detached retina repair History of laparoscopy Hx of cataract surgery both eyes Hx of dilation and curettage Hx of wisdom tooth extraction Family History Mother Rheumatic heart disease Bacterial endocarditis Father Gout Social History Smoking Status: Former smoker Tobacco Type: Cigarettes Second Hand Exposure: No; Do You Dip or Chew Tobacco: No; Tobacco Cessation Education Requested by Patient: No Hx Alcohol Use: No Hx Substance Use: No Preferred Language: Mauritian Communication Ability: Effective Data Power Consultant Required: No Beliefs That Will Affect Care: None Current Living Situation: Spouse Current Living Situation Comment: Lives at home with Other Information That Helps Us Care for You: No Feels Safe at Home: Yes Safety Concerns: Feels Safe At This Time Assistive Devices: Walker Review of Systems All systems reviewed & are unremarkable except as noted in HPI & below. Physical Exam On physical examination of her right leg there is a 2 cm wound just superior to the medial malleolus of the right leg. There is cellulitis that extends up to the mid calf region. She does have a large abscess on the posterior medial aspect of the calf superior to the wound. It is very tender to palpation. Constitutional WD/WN, vitals as above Eyes PERRL, conjunctivae normal, anicteric sclerae ENMT external ear and nose normal, oropharynx normal Neck trachea midline, no thyromegaly Respiratory normal respiratory effort Cardiovascular RRR, no murmur, no edema Gastrointestinal (Abdomen) normal bowel sounds, soft, nontender, no hepatosplenomegaly Psychiatric A+Ox3, euthymic affect Results & Data Results & Data Laboratory Results . Diagnostic Findings CT scan of the right leg was suggestive of a large abscess on the posterior medial aspect of the right leg PG Care Time/CCT Total # of Minutes Spent Total Time Spent with Patient: Total time spent is greater than 50% in coordination of care (as documented) at patient's floor/unit and/or counseling patient: Coding Level of Care Code 35660 Inpt Consult Level 4 (57 - DECISION FOR SURGERY) Diagnoses Cellulitis and abscess of right leg L03.115; L02.415
--- NOTE | 2021-06-16 10:55 | Electrocardiogram Report ---
Test Reason : Blood Pressure : / mmHG Vent. Rate : 098 BPM Atrial Rate : 098 BPM P-R Int : 152 ms QRS Dur : 062 ms QT Int : 328 ms P-R-T Axes : 010 077 084 degrees QTc Int : 418 ms Normal sinus rhythm Possible Left atrial enlargement Anterior infarct (cited on or before 15-JUN-2021) T wave abnormality, consider lateral ischemia Abnormal ECG When compared with ECG of 10-MAY-2021 17:01, Premature atrial complexes are no longer Present Confirmed by Damon White ([id number]) on 06/16/2021 10:54:54 AM Referred By: REFERRED SELF Confirmed By:Damon White
--- NOTE | 2021-06-16 11:49 | History & Physical Bridge Note ---
Date of Service June 16, 2021 History & Physical Bridge Note I have examined the patient, reviewed the History & Physical and in the interval since the performance of the History & Physical I have noted the following changes of clinical significance: no changes noted
--- NOTE | 2021-06-16 12:56 | Anesthesiology Consultation ---
Date of Service June 16, 2021 Assessment & Plan Chart Review Chart Review: Acceptable Risk for Surgery and Patient NOT seen in Pre Admission Testing Consults Requested none ASA ASA4 Proposed Anesthesia Anesthesia Type: General Risk / Benefits Reviewed With: PT / POA / Parent / Guardian, Accepts Plan and Informed Consent Obtained Additional Comments: covid test negative History Surgery Operation Date: 06/16/21 10:30 Proposed Procedures p Incision and Drainage Abscess or Right Leg - Vargas Riley, DO Height/Weight Height: 5 ft Weight: 48.2 kg Allergies Allergy/AdvReac Type Severity Reaction Status Date / Time amoxicillin [From Augmentin] AdvReac Intermediate Vomiting Verified 06/15/21 16:48 clavulanic acid AdvReac Intermediate Vomiting Verified 06/15/21 16:48 [From Augmentin] phytonadione (vitamin K1) AdvReac Intermediate chest/abd Verified 06/15/21 23:47 pain sulfamethoxazole AdvReac Intermediate NAUSEA/VOMI Verified 06/15/21 16:48 TING trimethoprim AdvReac Intermediate NAUSEA/VOMI Verified 06/15/21 16:48 TING cephalexin [From Keflex] AdvReac Mild Nausea Verified 06/15/21 16:48 tramadol AdvReac Vomiting Unverified 06/15/21 21:47 Medications Home Medications Medication Instructions Recorded Confirmed Last Taken cholecalciferol (vitamin D3) 25 1,000 units PO DAILY 11/16/17 06/15/21 05/10/21 mcg (1,000 unit) capsule budesonide 9 mg tablet,delayed and 9 mg PO DAILY 11/22/18 06/15/21 05/10/21 extended release simethicone 125 mg capsule (Gas-X 125 mg PO DIRECTED PRN cap 07/01/20 06/15/21 Unknown Extra Strength) ascorbic acid (vitamin C) 500 mg 500 mg PO DAILY 09/17/20 06/15/21 05/10/21 tablet (Vitamin C) vitamin A 10,000 unit capsule 2,400 unit PO DAILY 09/17/20 06/15/21 05/10/21 zinc 50 mg tablet 50 mg PO DAILY 09/17/20 06/15/21 05/10/21 alosetron 1 mg tablet (Lotronex) 1 mg PO BID 11/29/20 06/15/21 05/10/21 08:00 furosemide 20 mg tablet 20 mg PO BID 11/29/20 06/15/21 05/10/21 08:00 warfarin 1 mg tablet 1 mg PO 5XWK 11/29/20 06/15/21 05/09/21 diphenoxylate-atropine 2.5 2 tab PO BID tab 01/02/21 06/15/21 05/10/21 08:00 mg-0.025 mg tablet (Lomotil) Synthroid 75 mcg tablet 75 mcg PO .COMPLEX #30 tab NS 02/03/21 06/15/21 05/09/21 (levothyroxine) calcium carbonate 600 mg-vitamin 1 tab PO DAILY tab 05/07/21 06/15/21 05/10/21 D3 5 mcg (200 unit) tablet Bifidobacterium infantis 4 mg 4 mg PO DAILY PRN 06/15/21 06/15/21 Unknown capsule (Align) acetaminophen 500 mg tablet 1,000 mg PO TID PRN 06/15/21 06/15/21 Unknown clindamycin HCl 300 mg capsule 300 mg PO TID 06/15/21 06/15/21 Unknown colestipol 1 gram tablet (Colestid) 1 g PO BID 06/15/21 06/15/21 Unknown cyclosporine 0.05 % eye drops in a 1 drp OPB Q12H 06/15/21 06/15/21 Unknown dropperette (Restasis) denosumab 60 mg/mL subcutaneous 60 mg SUBCUT .TWICE YEARLY 06/15/21 06/15/21 03/04/21 syringe (Prolia) doxycycline hyclate 100 mg capsule 100 mg PO AMHS 06/15/21 06/15/21 Unknown loperamide 2 mg tablet (Imodium 4 mg PO BID 06/15/21 06/15/21 Unknown A-D) methylprednisolone 4 mg tablet 4 mg PO BID 06/15/21 06/15/21 Unknown sodium chloride 0.65 % nasal spray 1 spray INTRANASAL TID PRN 06/15/21 06/15/21 Unknown aerosol (Saline Nasal Mist) warfarin 1 mg tablet 2 mg PO 2XWK 06/15/21 06/15/21 Unknown Active Medications Generic Name Dose Route Start Last Admin Trade Name Freq PRN Reason Stop Dose Admin Budesonide 9 mg 06/16/21 09:00 06/16/21 08:56 Budesonide Ec 3 Mg Cap PO 07/16/21 08:59 9 mg DAILY AMBER Administration Colestipol HCl 1 gm 06/16/21 10:00 06/16/21 08:56 Colestipol Hcl 1 Gm Tab PO 07/16/21 09:59 1 gm BID@1000,2200 AMBER Administration Cefepime HCl 2,000 mg/ Syringe 20 mls @ 5 mls/min 06/16/21 06:00 06/16/21 05:04 IV 06/23/21 05:59 5 mls/min Q8H ABMER Administration Protocol Lactated Ringer's 1,000 mls @ 40 mls/hr 06/16/21 01:35 06/16/21 02:02 Lr IV 07/16/21 01:34 40 mls/hr .Q24H AMBER Administration Vancomycin HCl 750 mg/ Sodium 265 mls @ 200 mls/hr 06/16/21 06:00 06/16/21 06:37 Chloride IV 06/23/21 05:59 Infused Q12H AMBER Infusion Levothyroxine Sodium 75 mcg 06/16/21 06:30 06/16/21 05:04 Levothyroxine Sodium 75 Mcg Tablet PO 07/16/21 06:29 75 mcg [id number]@0630 AMBER Administration Methylprednisolone 4 mg 06/16/21 09:00 06/16/21 08:55 Methylprednisolone 4 Mg Tab PO 07/16/21 08:59 4 mg BID AMBER Administration Miscellaneous 1 ea 06/16/21 08:00 06/16/21 08:56 Restasis - Order Awaiting Action N/A 07/16/21 07:59 Not Given QS AMBER Oxycodone HCl 5 mg 06/15/21 22:04 06/16/21 08:55 Oxycodone Hcl Ir 5 Mg Tab (Immediate Release) PO 06/29/21 22:03 5 mg Q4H PRN Administration Pain NPO Date Last Intake of Fluids: 06/16/21 Time Last Intake of Fluids: 08:00 Date Last Intake of Solids: 06/15/21 Time Last Intake of Solids: 18:00 Past Medical History Medical History Cellulitis Chronic steroid use Colitis DVT (deep venous thrombosis) Surinder's disease Hypothyroidism Lab test negative for COVID-19 virus Leg pain, left Localized swelling of both lower legs Migraine headache Osteopenia Polyarthritis Sjogrens syndrome Vasculitis Exercise / Class Metabolic Activity III < 4 Walking/Shop/Light housework Past Family History Family History Mother Rheumatic heart disease Bacterial endocarditis Father Gout Past Surgical History Surgical History H/O detached retina repair History of laparoscopy Hx of cataract surgery both eyes Hx of dilation and curettage Hx of wisdom tooth extraction Past Anesthesia History No Hx of Anesthesia Complications and No Family Hx of Anesthesia Complications History of PONV No Hx of PONV and No Hx of Motion Sickness Social History Smoking Status: Former smoker Do You Dip or Chew Tobacco: No Hx Alcohol Use: No Hx Substance Use: No substance use type: does not use Physical Exam Vital Signs Last Vital Signs Temp 37.1 C 06/16/21 12:39 Pulse 125 H 06/16/21 12:39 Resp 18 06/16/21 12:39 BP 169/101 H 06/16/21 12:39 Pulse Ox 98 06/16/21 12:39 Constitutional + cachectic ENMT Mouth: + small oral opening; no dentition abnormality Thyromental Distance: < 3.5 Finger Breadths Mallampati Class: II Neck normal visual inspection and trachea midline; neck extension not limited Respiratory normal respiratory effort Auscultation: lungs clear to auscultation bilaterally Cardiovascular Rate/Rhythm: regular rate and regular rhythm Heart Sounds: no murmur Vessels: no carotid bruit Musculoskeletal Spine: normal cervical ROM Extremities: + extremities abnormal to inspection Neurologic moves all extremities Motor/Sensory: + sensory deficit Psychiatric Orientation: alert and oriented x 3 Testing Laboratory Results 06/16/21 06:14 06/16/21 06:14 PT 15.4 Seconds (9.0-12.0) H 06/16/21 06:14 INR 1.5 (0.9-1.1) H 06/16/21 06:14 APTT 46.3 Seconds (21.0-31.0) H* 06/15/21 17:05 Urine Color Yellow 06/15/21 18:31 Urine Appearance Clear (Clear) 06/15/21 18:31 Urine pH 7.0 (4.5-7.5) 06/15/21 18:31 Ur Specific [place] 1.003 (1.000-1.030) 06/15/21 18:31 Urine Protein Negative (Negative) 06/15/21 18:31 Urine Glucose (UA) Negative (Negative) 06/15/21 18:31 Urine Ketones Negative (Negative) 06/15/21 18:31 Urine Nitrite Negative (Negative) 06/15/21 18:31 Ur Leukocyte Esterase Negative (Negative) 06/15/21 18:31 Urine WBC (Auto) 0 /hpf (0-5) 06/15/21 18:31 Urine RBC (Auto) 0-4 /hpf (0-4) 06/15/21 18: U Hyaline Cast (Auto) 0 /lpf (0-5) 06/15/21 18:31 U Epithel Cells (Auto) 0-5 /lpf (0-5) 06/15/21 18:31 Urine Bacteria (Auto) Negative (Negative) 06/15/21 18:31 Blood Type A Positive 06/15/21 21:04 Antibody Screen NEGATIVE 06/15/21 21:04 06/16/21 00:12 Gram Stain - Final Leg,Right Electrocardiogram Date: 06/15/21 Findings: + NSR @ (@98;? anter. infarct,age ?;T wave abnormality,? lateral wall ischemia) Chest X-Ray Date: 06/15/21 Findings: + NAD and + cardiomegaly Echocardiogram Date: 04/30/21 EF: 65% LV Function: normal RWMA: + none Other Findings: + diastolic dysfunction (grade 1) Valvular Disease: + MR (moderate) TR- moderate to severe;mild pulmonary HTN
[2021-06-16] MEDS ORDERED: ePHEDrine sulfate 50 MG/ML AMP IV PRN (12:59)
[2021-06-16] MEDS ORDERED: FLUMAZENIL 0.1 MG/1 ML 10 ML VIAL IV PRN (12:59)
[2021-06-16] MEDS ORDERED: ONDANSETRON INJ 2 MG/ML 2 ML VIAL IV PRN (12:59)
[2021-06-16] MEDS ORDERED: PROMETHAZINE HCL 12.5 MG in SODIUM CHLORIDE 0.9% 50 ML IV PRN (12:59)
[2021-06-16] MEDS ORDERED: ATROPINE SULFATE 0.1 MG/ML 10ML SYR IV PRN (12:59)
[2021-06-16] MEDS ORDERED: NALOXONE HCL 0.4 MG/1 ML VIAL/CARP IV PRN (12:59)
[2021-06-16] MEDS ORDERED: LIDOCAINE 2% 2 ML VIAL/AMP(20MG/ML) INFIL ONE (13:02)
[2021-06-16] MEDS ORDERED: PROPOFOL IV EMULSION 10 MG/ML 20 ML VIAL IV ONE (13:02)
[2021-06-16] MEDS ORDERED: ONDANSETRON INJ 2 MG/ML 2 ML VIAL ONE (13:02)
[2021-06-16] MEDS ORDERED: fentaNYL citrate 100 MCG/2 ML VIAL ONE ×2 (13:03→14:09)
[2021-06-16] MEDS ORDERED: KETOROLAC 30 MG/ML VIAL ONE (14:05)
--- NOTE | 2021-06-16 14:32 | Operative Report ---
PG Post Operative Report Pre & Post Diagnosis Operation Date: 06/16/21 10:30 Pre-Op Diagnosis: Cellulitis and abscess of right leg Post-Op Diagnosis: Cellulitis and abscess of right leg I identified the patient and participated in the time-out.: Yes Procedure Operation Date: 06/16/21 10:30 Actual Procedures p Incision and Drainage Abscess of Right Leg(Right) s irrigation and debridement and closure of a separate ulceration Vargas Riley DO Surgeon Vargas Riley DO [place] Vargas Stapleton PAC Estimated Blood Loss 5 Findings Consistent with Post-Op Diagnosis Specimens Cultures Complications none Disposition Disposition: Recovery Room Indications Charity is a 66-year-old female who has fluid retention in her legs. She has developed ulcerations and then a hematoma from it. She has been on anticoagulants. There was concern that the hematoma became infected. She had cellulitis and severe pain in the area. CT scan was suggestive of an abscess. After discussions at bedside she elected to proceed with an I&D of the right leg abscess. Description of Procedure On June 07 9021 Charity was brought down from her hospital room to the preoperative holding area. The operative extremity was identified and signed. She continued her IV antibiotics. She was taken back to the operating room and laid on the table in supine position. She is put in general anesthesia. The right leg was prepped and draped in sterile fashion. Timeout was done. The patient and the operative extremity was properly identified. There is a small 2 cm ulceration just proximal to the medial malleolus. This was opened up first. There was a large amount of serous fluid that came out of this opening. This was all collected and cultured. There was larger hematoma or abscess that was more proximal. I then tried to milk the abscess out through the more distal opening and it created a large skin tear. Her epidermal layer was significantly thin. Her tissue quality was extremely poor. All of her subcuticular and subcutaneous tissue was full fluid. The skin tear was in the area of the abscess so I was able to evacuate the abscess through the skin tear without making a separate incision. The abscess was evacuated and a limited debridement was done. I was concerned to remove too much tissue as her tissue quality was so poor. The abscess area was then irrigated with pulse lavage. The opening over the abscess was then closed with 3-0 nylon suture in an interrupted fashion. Her skin was tearing through the sutures. I was able to get enough sutures to hold the wound together. The tissue quality was so poor I did not think a drain would be beneficial. I then debrided the more distal wound and closed that with nylon suture. The wounds were then dressed with Xeroform 4 x 4 gauze web roll and a Xu wrap placed lightly. She was then extubated and transferred to a hospital bed. She was then taken to the postanesthesia care unit in stable condition. She tolerated the procedure well. Vargas Stapleton PA-C, was present for the entire procedure. He was critical for patient positioning, prepping, draping, retraction exposure, wound closure and application of sterile dressing. I attest to the content of the Intraoperative Record and any orders documented therein. Any exceptions are noted below.
[2021-06-16] MEDS: fentaNYL citrate 100 MCG/2 ML VIAL IV PRN ×2 (14:45→14:50)
--- NOTE | 2021-06-16 15:05 | Anesthesiology Progress Note ---
Date of Service June 16, 2021 Anesthesia Post Procedure Vital Signs Vital Signs: Temp Pulse Pulse Pulse Resp BP BP 06/16/21 15:00 36.4 C L 85 14 150/83 H 06/16/21 14:50 90 14 146/83 H 06/16/21 14:40 94 H 15 166/93 H 06/16/21 14:33 36.5 C 98 H 13 173/93 H 06/16/21 12:39 37.1 C 125 H 18 169/101 H 06/16/21 11:29 36.7 C 87 20 130/74 06/16/21 08:27 36.8 C 86 18 126/74 06/16/21 07:41 78 06/16/21 04:00 36.8 C 83 18 115/73 06/16/21 01:35 36.4 C L 102 H 18 168/84 H 06/16/21 01:00 89 19 154/88 H 06/16/21 00:30 83 22 142/84 H 06/16/21 00:00 87 27 H 144/84 H 06/15/21 23:45 88 20 152/84 H 06/15/21 23:44 93 H 27 H 152/84 H 06/15/21 23:43 93 H 22 163/122 H 06/15/21 23:37 22 06/15/21 23:36 88 21 141/82 H 06/15/21 23:00 91 H 18 154/96 H 06/15/21 22:32 96 H 158/85 H 06/15/21 21:30 37 C 99 H 31 H 06/15/21 21:00 92 H 19 06/15/21 20:30 92 H 13 174/95 H 06/15/21 20:00 100 H 20 06/15/21 19:42 107 H 27 H 06/15/21 19:03 93 H 15 06/15/21 18:57 174/95 H 06/15/21 16:28 36.7 C 107 H 20 162/92 H Pulse Ox 06/16/21 15:00 100 06/16/21 14:50 100 06/16/21 14:40 100 06/16/21 14:33 100 06/16/21 12:39 98 06/16/21 11:29 99 06/16/21 08:27 98 06/16/21 07:41 03/29/22 04:00 97 06/16/21 01:35 98 06/16/21 01:00 98 06/16/21 00:30 98 06/16/21 00:00 97 06/15/21 23:45 99 06/15/21 23:44 98 06/15/21 23:43 98 06/15/21 23:37 97 06/15/21 23:36 96 06/15/21 23:00 98 06/15/21 22:32 99 06/15/21 21:30 06/15/21 21:00 97 06/15/21 20:30 98 06/15/21 20:00 98 06/15/21 19:42 99 06/15/21 19:03 98 06/15/21 18:57 06/15/21 16:28 98 Pain Intensity Right Lower Leg: Pain Intensity: 8 Transfer of Care Handoff Completed per policy Notes Mental Status: alert / awake / arousable Patient Amnestic to Procedure: Yes Nausea / Vomiting: adequately controlled Pain: adequately controlled Airway Patency, RR, SpO2: stable & adequate BP & HR: stable & adequate Hydration State: stable & adequate Anesthetic Complications: no major complications apparent
[2021-06-16] MEDS ORDERED: ACETAMINOPHEN 500 MG TAB PO PRN (15:29)
[2021-06-16] MEDS ORDERED: NON-FORMULARY MEDICATION (Denosumab [Prolia] 60 mg/mL Syringe) SQ SCH (15:29)
[2021-06-16] MEDS ORDERED: SODIUM CHLORIDE 0.65% NA SOLN 45 ML (OCEAN) NAE PRN (15:29)
[2021-06-16] MEDS ORDERED: oxyCODONE HCL IR 5 MG TAB (IMMEDIATE RELEASE) PO PRN (15:29)
[2021-06-16] MEDS ORDERED: HYDROmorphone INJ 0.5 MG/0.5 ML SYR IV PRN (15:29)
[2021-06-16] MEDS ORDERED: SIMETHICONE 80 MG CHEW PO PRN (16:03)
[2021-06-16] MEDS: MoRPHine SULFATE 4 MG/ML 1 ML CARP\\VIAL IV PRN ×2 (16:17→19:54)
[2021-06-16] MEDS: WARFARIN SOD 1 MG TAB PO SCH (17:27)
[2021-06-16] MEDS: FUROSEMIDE 20 MG TAB PO SCH (17:27)
[2021-06-16] MEDS: DIPHENOXYLATE/ATROPINE 2.5/0.025MG TAB PO SCH (20:02)
[2021-06-16] MEDS: LOPERAMIDE HCL 2 MG CAP PO SCH (20:02)
[2021-06-16] MEDS ORDERED: DOXYCYCLINE HYCLATE 100 MG CAP PO SCH (21:00)
[2021-06-16] MEDS ORDERED: CLINDAMYCIN HCL 150 MG CAP PO SCH (21:00)
--- NOTE | 2021-06-16 23:34 | Hospitalist Progress Note ---
Date of Service June 16, 2021 Assessment & Plan (1) Cellulitis and abscess of right leg: Plan: CT right leg showed significant soft tissue edema and subcutaneous fluid seen throughout the right lower extremity as detailed above. There is a 6.2 cm organized fluid collection in the posteromedial aspect of the mid calf overlying the gastrocnemius muscle, likely representing abscess. S/P day# 0Incision and Drainage Abscess of Right Leg. Irrigation and debridement and closure of a separate ulceration performed by Dr. Riley She was getting outpatient Clindamycin and doxycycline Currently on IV Vanco, Cefepime WBC 16K on admission, today 15K Blood cx no growth Will follow wound cx Might consider ID consult once cx resolves Continue pain control Continue monitor closely Headache CT head showed no acute intracranial abnormality Stable Chronic lower extremity edema Inflammatory polyarthritis and Sjogren's syndrome Follows with rheumatology as outpatient On chronic steroid Hypertension BP Stable Continue lisinopril History of deep venous thrombosis, on Coumadin. INR is 1.8 Episode of DVT 10/08 Pt has been getting therapy more than 6 months, will need to discuss with outpatient provider/hematology about discussing to stop anticoagulant once pt recovers and more active Continue coumadin for now Will monitor PT/INR Hypothyroidism Continue Synthroid Chronic anemia Hgb 11.9 today Hgb 9.8 today Continue monitor CBC DVT Px: Continue Coumadin Code Status Full Code Admission and Anticipated Discharge Date Admission Date: June 15, 2021 Subjective Patient was seen and examined for follow-up of right lower extremity abscess I was able to see the patient before she went to the OR and after she came back from the OR later in the afternoon Lying in bed with no acute distress She said that she is having pain in the leg right lower extremity Denies any chest pain, palpitation, dizziness, shortness of breath. Review of Systems Review of Systems: All systems reviewed & are unremarkable except as noted in Subjective Physical Exam Physical Exam: General- No acute distress Head- atraumatic Eyes- PERRL, EOMI, ENT- oropharynx clear Neck- supple, no JVD Lungs- clear to auscultation Heart- regular rhythm; no murmur Abdomen- normal bowel sounds, soft, nontender Extremities- Large tender indurated (Abscess) RLE with ulcerated wound above right ankle, LLE covers with dressing Neuro- alert, oriented x 3; PERRL, EOMI; no facial palsy; no dysarthria Skin- warm & dry Results & Data Results & Data ([facility]) Vital Signs (Past 12 Hours) Vital Signs Temp Pulse Pulse Resp BP Pulse Ox 06/16/21 18:30 36.7 C 83 20 133/74 95 06/16/21 15:00 36.4 C L 85 14 150/83 H 100 06/16/21 14:50 90 14 146/83 H 100 06/16/21 14:40 94 H 15 166/93 H 100 06/16/21 14:33 36.5 C 98 H 13 173/93 H 100 06/16/21 12:39 37.1 C 125 H 18 169/101 H 98
[2021-06-17] MEDS: LACTATED RINGER'S 1,000 ML IV SCH (00:53)
[2021-06-17] MEDS: MoRPHine SULFATE 4 MG/ML 1 ML CARP\\VIAL IV PRN ×3 (04:02→21:53)
[2021-06-17] MEDS ORDERED: VANCOMYCIN TROUGH ONE (05:30)
[2021-06-17] MEDS: CEFEPIME 2,000 MG in SYRINGE 0 ML IV SCH ×3 (05:41→21:53)
[2021-06-17 05:44] LABS: Hematocrit (blood only) 30.1 % (37-47); Hemoglobin 9.6 g/dL (12.0-16.0); Immature Granulocytes # (auto) 0.06 K/uL (0.00-0.02); Immature Granulocytes % (auto) 0.5 %; Lymphocytes # (auto) 0.56 K/uL (1.2-3.4); Lymphocytes % (auto) 4.2 %; Mean Corpuscular Hemoglobin 28.4 pg (25-34); Mean Corpuscular Hgb Conc 31.9 g/dL (32-36); Mean Corpuscular Volume 89.1 fL (80-100); Mean Platelet Volume 9.2 fL (7.4-10.4); Monocytes # (auto) 1.03 K/uL (0.11-0.59); Monocytes % (auto) 7.8 %; Neutrophils % (auto) 87.5 %; Platelet Count 328 K/uL (130-400); RDW Coefficient of Variation 14.4 % (11.5-14.5); RDW Standard Deviation 46.8 fL (36.4-46.3); Red Blood Count 3.38 M/uL (4.2-5.4); White Blood Count 13.25 K/uL (4.8-10.8)
[2021-06-17 05:53] LABS: INR 1.1 (0.9-1.1); Prothrombin Time 11.7 Seconds (9.0-12.0)
[2021-06-17 06:11] LABS: Creatinine Clr Calc Pharmacy 98.3 ml/min; Est GFR (African American) 125.7 ml/min; Est GFR (Non-African American) 108.4 ml/min; Potassium 4.1 mmol/L (3.5-5.1)
[2021-06-17] MEDS: LEVOTHYROXINE SODIUM 75 MCG TABLET PO SCH (06:25)
[2021-06-17] MEDS: VANCOMYCIN HCL 750 MG in SODIUM CHLORIDE 0.9% 250 ML IV SCH (06:26)
--- NOTE | 2021-06-17 06:47 | Orthopedic Progress Note ---
Date of Service June 17, 2021 Assessment & Plan (1) Cellulitis and abscess of right leg: I talked to her about her skin quality at bedside. Her skin quality and tissue quality of her lower legs was extremely poor. There was some tearing of the skin during the procedure. Sutures were placed. All the wounds are closed but this will likely require close wound care monitoring to make sure that everything heals okay. I would recommend daily dry dressing changes starting tomorrow. I would also recommend a wound care consult so that they can see her leg at this point and set up future wound care visits to ensure this heals properly. She needs to continue on the IV vancomycin and cefepime while we wait for cultures to come back. She is feeling better and she is happy about that. We will continue to monitor closely. Earnestine Nash was seen and examined at bedside this morning. Overall she is doing fairly well. She has less pain. Overall she feels better. She has been up and ambulating to the bathroom. She has no complaints. Review of Systems All systems reviewed & are unremarkable except as noted in HPI & below. Physical Exam On physical examination of the right leg, the dressing is clean and dry. She has active motion of her foot. Results & Data Results & Data Laboratory Results . Diagnostic Findings . PG Care Time/CCT Total # of Minutes Spent Total Time Spent with Patient: Total time spent is greater than 50% in coordination of care (as documented) at patient's floor/unit and/or counseling patient: Coding Level of Care Code 48716 Post Operative Follow-Up Diagnoses Cellulitis and abscess of right leg L03.115; L02.415
--- NOTE | 2021-06-17 07:30 | CT Scan Report ---
CT OF THE CHEST WITHOUT IV CONTRAST CLINICAL HISTORY: Abnormal chest radiograph. COMPARISON STUDY: Chest CT June 06, 2011. Chest radiograph June 15, 2021. CT DOSE: 186.80 mGy.cm TECHNIQUE: Axial images of the chest were obtained without IV contrast. Images were reviewed in the axial, sagittal, and coronal planes. IV contrast was not administered for this examination. Automat ed exposure control was utilized for the study. A dose lowering technique was utilized adhering to t he principles of ALARA. FINDINGS: No enlarged axillary, mediastinal or hilar lymph nodes are present. No pericardial effusio n is present. Borderline cardiomegaly is noted. No pneumothorax or pleural effusion is noted. Note is made of minimal ground glass opacities within the anterior segment of the right upper lobe. Minimal right middle lobe and lingular opacities present. Central airways are patent. Healing anterior left t hird rib fracture is noted. This accounts for the finding on chest radiograph of June 15, 2021. Ther e are no suspicious pulmonary nodules. An old manubrial fracture is present. Several additional old b ilateral rib fractures are present. Upper abdomen is unremarkable on this unenhanced exam. IMPRESSION: 1. No suspicious pulmonary nodules. Healing anterior left third rib fracture accounts for the finding on chest radiograph of June 15, 2021. 2. Minimal tree-in-bud opacities within the anterior segment right upper lobe which favors flocculate s. 3. Mild right middle lobe and lingular opacities which favor scarring. ACT 112: Negative or not required by law. Electronically signed by: Stuart Haro M.D. 06/17/2021 7:28 AM
--- NOTE | 2021-06-17 07:53 | Pharmacy Report ---
Pharmacy Vanc AUC Short Note - Date of Service June 17, 2021 - Assessment & Plan Assessment 66 year old F receiving IV Vancomycin + Cefepime for treatment of sepsis, right leg cellulitis/abscess, POD 1 I&D. Pertinent microbiologic data includes: Leg culture growing probable pseudomonas BCs no growth to date. WBC trending down, afebrile. Day # 3 of antimicrobial therapy. Plan Vancomycin * AUC/ANDER is the preferred PK/PD target for vancomycin * AUC guided dosing is effective and associated with decreased risk of nephrotoxicity compared to traditional trough targets * Current dose 750mg IV Q12H with trough of 6.9mg/dl is subtherapeutic * Change to 1000mg IV Q12H starting today at 1200 * This increase in dose is predicted to achieve target AUC/ANDER of 400-600 mg/L.hr and may be associated with a 8% risk of nephrotoxicity * Trough level ordered for: 06/19/21 Cefepime 2g IV Q8H for CrCL > 60ml/min Pharmacy will continue to follow and will adjust dose/frequency as necessary. Thank you.
[2021-06-17] MEDS: [UNRECOGNIZED DRUG - OTHER] PO SCH ×2 (07:55→20:43)
[2021-06-17] MEDS: BUDESONIDE EC 3 MG CAP PO SCH (07:58)
[2021-06-17] MEDS: ASCORBIC ACID 500 MG TAB PO SCH (07:58)
[2021-06-17] MEDS: CHOLECALCIFEROL 1,000 UNITS 25 MCG TAB PO SCH (08:00)
[2021-06-17] MEDS: DIPHENOXYLATE/ATROPINE 2.5/0.025MG TAB PO SCH ×2 (08:01→20:43)
[2021-06-17] MEDS: methylPREDNISolone 4 MG TAB PO SCH ×2 (08:02→20:42)
[2021-06-17] MEDS: LOPERAMIDE HCL 2 MG CAP PO SCH ×2 (08:02→21:52)
[2021-06-17] MEDS: FUROSEMIDE 20 MG TAB PO SCH ×2 (08:02→16:48)
[2021-06-17] MEDS ORDERED: NON-FORMULARY MEDICATION (Vitamin A 10,000 unit Capsule) PO SCH (09:00)
[2021-06-17] MEDS: COLESTIPOL HCL 1 GM TAB PO SCH ×2 (10:23→20:43)
[2021-06-17] MEDS: VANCOMYCIN HCL 1,000 MG in SODIUM CHLORIDE 0.9% 250 ML IV SCH (11:50)
[2021-06-17] MEDS: CALCIUM 600MG + VIT D 400 IU TAB PO SCH (11:53)
[2021-06-17] MEDS: ZINC SULFATE 220 MG CAPSULE PO SCH (11:54)
--- NOTE | 2021-06-17 17:18 | Hospitalist Progress Note ---
Date of Service June 17, 2021 Assessment & Plan (1) Cellulitis and abscess of right leg: Plan: POD 1, s/p Incision and Drainage Abscess of Right Leg. Irrigation and debridement and closure of a separate ulceration performed by Dr. Riley She was getting outpatient Clindamycin and doxycycline Currently on IV Vanco, Cefepime WBC 16K on admission, today 13K Blood cx no growth Will follow wound cx Consider ID consult once cx resolves Continue pain control Continue monitor closely Headache CT head showed no acute intracranial abnormality No headache today Chronic lower extremity edema Inflammatory polyarthritis and Sjogren's syndrome Follows with rheumatology as outpatient On chronic steroid Hypertension BP Stable Continue lisinopril History of deep venous thrombosis, on Coumadin. INR is 1.8 Episode of DVT 10/08 Pt has been getting therapy more than 6 months, will need to discuss with outpatient provider/hematology about discussing to stop anticoagulant once pt recovers and more active Hold coumadin for now to aid in wound healing, patient prefers this Hypothyroidism Continue Synthroid Chronic anemia Hgb 11.9 today Hgb 9.8 today Continue monitor CBC DVT Px: Coumadin Full Code Dispo-uncertain at this time, pending ortho recs and her recoery Winter Martino DO [facility] Hospitalist Admission and Anticipated Discharge Date Admission Date: June 15, 2021 Subjective 66 yo F presented with RLE abscess/infected hematoma. She has a hx chronic venous insufficiencyand is on chronic steroids for hx vasculitis/Sjogren's syndrome/seronegative polyarthritis. She is on coumadin 2/2 a ?unprovoked DVT in her lower extremity last September. She has yet to see hematology for further workup which is planned in the near future. reports pain present but controlled she has been able to bear weight feeling better than on admission wanted to straighten out her meds--full med rec performed. Review of Systems Review of Systems: All systems were reviewed and negative except as indicated above. Physical Exam Physical Exam: CONSTITUTIONAL: WNWD, vitals as above, generally well- appearing EYES: normal conjunctivae, no scleral icterus ENT: external ear and nose normal, MMM NECK: trachea midline, RESPIRATORY: clear to auscultation bilaterally, no crackles, rales or wheezes, normal respiratory effort CARDIOVASCULAR: regular rate and rhythm, S1 and 2 heard without murmurs, gallops or rubs, no JVD, no peripheral edema, GASTROINTESTINAL: soft, nontender, ND, no guarding MUSCULOSKELETAL: strength 5/5 throughout, head is normocephalic and atraumatic, SKIN: warm and dry, NEUROLOGIC: CN 2-12 grossly intact, no sensory deficit, normal cognition, normal speech, no tremor PSYCHIATRIC: alert cooperative and oriented to person, place and time. Results & Data Results & Data ([facility]) Vital Signs (Past 12 Hours) Vital Signs Temp Pulse Pulse Resp BP Pulse Ox 06/17/21 15:44 88 06/17/21 14:56 36.6 C 82 16 129/76 95 06/17/21 11:01 36.7 C 93 H 14 145/85 H 98 06/17/21 07:47 36.6 C 82 20 132/77 99 06/17/21 07:29 84 Laboratory Results Short CBC 06/17/21 Range/Units 05:29 WBC 13.25 H (4.8-10.8) K/uL Hgb 9.6 L (12.0-16.0) g/dL Hct 30.1 L (37-47) % Plt Count 328 (130-400) K/uL BMP 06/17/21 05:29 Sodium 140 Potassium 4.1 Chloride 109 H Carbon Dioxide 25 BUN 9 Creatinine 0.41 L Glucose 101 H Calcium 8.0 L Diagnostic Findings Chest CT 06/16/21 08:00 CT OF THE CHEST WITHOUT IV CONTRAST CLINICAL HISTORY: Abnormal chest radiograph. COMPARISON STUDY: Chest CT June 06, 2011. Chest radiograph June 15, 2021. CT DOSE: 186.80 mGy.cm TECHNIQUE: Axial images of the chest were obtained without IV contrast. Images were reviewed in the axial, sagittal, and coronal planes. IV contrast was not administered for this examination. Automated exposure control was utilized for the study. A dose lowering technique was utilized adhering to the principles of ALARA. FINDINGS: No enlarged axillary, mediastinal or hilar lymph nodes are present. No pericardial effusion is present. Borderline cardiomegaly is noted. No pneumo thorax or pleural effusion is noted. Note is made of minimal ground glass opacities within the anterior segment of the right upper lobe. Minimal right middle lobe and lingular opacities present. Central airways are patent. Healing anterior left third rib fracture is noted. This accounts for the finding on chest radiograph of June 15, 2021. There are no suspicious pulmonary nodules. An old manubrial fracture is present. Several additional old bilateral rib fractures are present. Upper abdomen is unremarkable on this unenhanced exam. IMPRESSION: 1. No suspicious pulmonary nodules. Healing anterior left third rib fracture accounts for the finding on chest radiograph of June 15, 2021. 2. Minimal tree-in-bud opacities within the anterior segment right upper lobe which favors flocculates. 3. Mild right middle lobe and lingular opacities which favor scarring. ACT 112: Negative or not required by law. Electronically signed by: Stuart Haro M.D. 06/17/2021 7:28 AM Medications Administered Current Inpatient Medications Acetaminophen (Acetaminophen 325 Mg Tab) 650 mg PO Q6H PRN PRN Reason: Fever/pain Stop: 07/16/21 01:34 Alosetron HCl (Alosetron Hcl) 1 ea PO BID [facility] Stop: 07/17/21 08:59 Last Admin: 06/17/21 07:55 Dose: 1 ea Documented by: Ascorbic Acid (Ascorbic Acid 500 Mg Tab) 500 mg PO DAILY [facility] Stop: 07/17/21 08:59 Last Admin: 06/17/21 07:58 Dose: 500 mg Documented by: Budesonide (Budesonide Ec 3 Mg Cap) 9 mg PO DAILY [facility] Stop: 07/16/21 08:59 Last Admin: 06/17/21 07:58 Dose: 9 mg Documented by: Clindamycin HCl (Clindamycin Hcl 150 Mg Cap) 300 mg PO TID [facility] Stop: 06/19/21 21:01 Last Admin: 06/16/21 20:02 Dose: 300 mg Documented by: Colestipol HCl (Colestipol Hcl 1 Gm Tab) 1 gm PO BID@1000,2200 [facility] Stop: 07/16/21 09:59 Last Admin: 06/17/21 10:23 Dose: 1 gm Documented by: Diphenoxylate HCl/Atropine (Diphenoxylate/Atropine 2.5/0.025mg Tab) 2 tab PO BID [facility] Stop: 07/16/21 20:59 Last Admin: 06/17/21 08:01 Dose: 2 tab Documented by: Doxycycline Hyclate (Doxycycline Hyclate 100 Mg Cap) 100 mg PO [facility] Stop: 06/19/21 21:01 Last Admin: 06/16/21 20:02 Dose: 100 mg Documented by: Furosemide (Furosemide 20 Mg Tab) 20 mg PO BID17 [facility] Stop: 07/16/21 16:59 Last Admin: 06/17/21 16:48 Dose: 20 mg Documented by: Hydromorphone HCl (Hydromorphone Inj 0.5 Mg/0.5 Ml Syr) 0.25 mg IV Q6H PRN PRN Reason: Pain Stop: 06/30/21 15:28 Cefepime HCl 2,000 mg/ Syringe 20 mls @ 5 mls/min IV Q8H [facility]; Protocol Stop: 06/23/21 05:59 Last Admin: 06/17/21 15:12 Dose: 5 mls/min Documented by: Lactated Ringer's (Lr) 1,000 mls @ 40 mls/hr IV .Q24H [facility] Stop: 07/16/21 01:34 Last Admin: 06/17/21 00:53 Dose: 40 mls/hr Documented by: Vancomycin HCl 1,000 mg/ (Sodium Chloride) 270 mls @ 200 mls/hr IV Q12H [facility] Stop: 06/24/21 11:59 Last Infusion: 06/17/21 14:02 Dose: Infused Documented by: Levothyroxine Sodium (Levothyroxine Sodium 75 Mcg Tablet) 75 mcg PO MoTuWeThFrSa@0630 [facility] Stop: 07/16/21 06:29 Last Admin: 06/17/21 06:25 Dose: 75 mcg Documented by: Loperamide HCl (Loperamide Hcl 2 Mg Cap) 4 mg PO BID [facility] Stop: 07/16/21 20:59 Last Admin: 06/17/21 08:02 Dose: 4 mg Documented by: Lorazepam (Lorazepam 2 Mg/1 Ml Vial) 0.25 mg IV Q4H PRN PRN Reason: Anxiety Stop: 07/15/21 22:05 Methylprednisolone (Methylprednisolone 4 Mg Tab) 4 mg PO BID [facility] Stop: 07/16/21 08:59 Last Admin: 06/17/21 08:02 Dose: 4 mg Documented by: Miscellaneous (Alosetron [Lotronex] 1 Mg Tablet ~ Order Awaiting Action) 1 ea N/A QS [facility] Stop: 07/17/21 00:00 Last Admin: 06/17/21 16:05 Dose: Not Given Documented by: Miscellaneous Information (Vancomycin Consult Active) 1 ea N/A UD PRN PRN Reason: Consult Stop: 07/15/21 17:59 Morphine Sulfate (Morphine Sulfate 4 Mg/Ml 1 Ml Carp\Vial) 4 mg IV Q4H PRN PRN Reason: Pain Stop: 06/29/21 22:03 Last Admin: 06/17/21 08:35 Dose: 4 mg Documented by: Multivitamins/Minerals (Calcium 600mg + Vit D 400 Iu Tab) 1 tab PO DAILY@1200 [facility] Stop: 07/17/21 11:59 Last Admin: 06/17/21 11:53 Dose: 1 tab Documented by: Oxycodone HCl (Oxycodone Hcl Ir 5 Mg Tab (Immediate Release)) 5 mg PO Q4H PRN PRN Reason: Pain Stop: 06/29/21 22:03 Last Admin: 06/16/21 08:55 Dose: 5 mg Documented by: Oxycodone HCl (Oxycodone Hcl Ir 5 Mg Tab (Immediate Release)) 5 mg PO Q6H PRN PRN Reason: Pain Stop: 06/30/21 15:28 Simethicone (Simethicone 80 Mg Chew) 80 mg PO Q4H PRN PRN Reason: Indigestion Stop: 07/16/21 16:02 Sodium Chloride (Sodium Chloride 0.65% Na Soln 45 Ml ([place])) 1 sprays AMINATA TID PRN PRN Reason: Congestion Stop: 07/16/21 15:28 Vitamin D (Cholecalciferol 1,000 Units 25 Mcg Tab) 1,000 units PO DAILY [facility] Stop: 07/17/21 08:59 Last Admin: 06/17/21 08:00 Dose: 1,000 units Documented by: Warfarin Sodium (Warfarin Sod 1 Mg Tab) 1 mg PO SuTuWeThSa@1600 [facility] Stop: 07/16/21 16:29 Last Admin: 06/16/21 17:27 Dose: Not Given Documented by: Warfarin Sodium (Warfarin Sod 2 Mg Tab) 2 mg PO MoFr@1600 [facility] Stop: 07/19/21 15:59 Zinc Sulfate (Zinc Sulfate 220 Mg Capsule) 220 mg PO DAILY@1200 [facility] Stop: 07/17/21 11:59 Last Admin: 06/17/21 11:54 Dose: 220 mg Documented by:
[2021-06-17] MEDS: WARFARIN SOD 1 MG TAB PO SCH (18:06)
[2021-06-17] MEDS: BISMUTH SUBSALICYLATE 262 MG CHEW PO SCH (21:52)
[2021-06-17] MEDS: SIMETHICONE 80 MG CHEW PO SCH (21:53)
[2021-06-18] MEDS: VANCOMYCIN HCL 1,000 MG in SODIUM CHLORIDE 0.9% 250 ML IV SCH (00:27)
[2021-06-18] MEDS: MoRPHine SULFATE 4 MG/ML 1 ML CARP\\VIAL IV PRN ×3 (06:17→20:28)
[2021-06-18] MEDS: LEVOTHYROXINE SODIUM 75 MCG TABLET PO SCH (06:17)
[2021-06-18] MEDS: CEFEPIME 2,000 MG in SYRINGE 0 ML IV SCH ×3 (06:17→23:27)
[2021-06-18] MEDS: [UNRECOGNIZED DRUG - OTHER] PO SCH ×2 (08:50→20:30)
[2021-06-18] MEDS: ASCORBIC ACID 500 MG TAB PO SCH (09:14)
[2021-06-18] MEDS: BISMUTH SUBSALICYLATE 262 MG CHEW PO SCH (09:14)
[2021-06-18] MEDS: BUDESONIDE EC 3 MG CAP PO SCH (09:15)
[2021-06-18] MEDS: CHOLECALCIFEROL 1,000 UNITS 25 MCG TAB PO SCH (09:15)
[2021-06-18] MEDS: DIPHENOXYLATE/ATROPINE 2.5/0.025MG TAB PO SCH ×2 (09:15→20:37)
[2021-06-18] MEDS: FUROSEMIDE 20 MG TAB PO SCH ×2 (09:16→16:44)
[2021-06-18] MEDS: LOPERAMIDE HCL 2 MG CAP PO SCH ×2 (09:17→20:34)
[2021-06-18] MEDS: methylPREDNISolone 4 MG TAB PO SCH ×2 (09:17→20:36)
[2021-06-18] MEDS: SIMETHICONE 80 MG CHEW PO SCH ×2 (09:17→20:37)
[2021-06-18] MEDS: COLESTIPOL HCL 1 GM TAB PO SCH ×2 (10:29→20:36)
[2021-06-18] MEDS: ZINC SULFATE 220 MG CAPSULE PO SCH (12:12)
[2021-06-18] MEDS: CALCIUM 600MG + VIT D 400 IU TAB PO SCH (12:12)
--- NOTE | 2021-06-18 13:40 | Hospitalist Progress Note ---
Date of Service June 18, 2021 Assessment & Plan (1) Cellulitis and abscess of right leg: Plan: POD 2, s/p Incision and Drainage Abscess of Right Leg. Irrigation and debridement and closure of a separate ulceration performed by Dr. Riley She was getting outpatient Clindamycin and doxycycline Currently on Cefepime, vanc stopped now that pseudomonas evident in wound culture. WBC 16K on admission, today 13K (noted chronic steroids) Does not appears acutely infected. Blood cx no growth ID consult pending. Multiple antibiotic allergies. High risk for complications with fragile wound/tissue. Continue pain control Continue monitor closely Headache CT head showed no acute intracranial abnormality No headache today Chronic lower extremity edema Inflammatory polyarthritis and Sjogren's syndrome Follows with rheumatology as outpatient On chronic steroids Hypertension BP Stable Continue lisinopril History of deep venous thrombosis, on Coumadin. Episode of DVT 10/08 Pt has been getting therapy more than 6 months, will need to discuss with outpatient provider/hematology about discussing to stop anticoagulant once pt recovers and more active Hold coumadin for now to aid in wound healing, patient prefers this Hypothyroidism Continue Synthroid Chronic anemia Hgb 11.9 today Hgb 9.8 today Continue monitor CBC DVT Px: Coumadin Full Code Dispo-uncertain at this time, pending ID and ortho recs. Possible DC to home tomorrow (Tue) Winter Martino DO [facility] Hospitalist Admission and Anticipated Discharge Date Admission Date: June 15, 2021 Subjective 66 yo F presented with RLE abscess/infected hematoma. She has a hx chronic venous insufficiencyand is on chronic steroids for hx vasculitis/Sjogren's syndrome/seronegative polyarthritis. She is on coumadin 2/2 a ?unprovoked DVT in her lower extremity last September. She has yet to see hematology for further workup which is planned in the near future. reports pain present but controlled she has been able to bear weight Wound culture grew Pseudomonas. Vancomycin was stopped Some nausea reported likely related to morphine she had earlier this morning predressing change. Review of Systems Review of Systems: All systems were reviewed and negative except as indicated above. Physical Exam Physical Exam: CONSTITUTIONAL: WNWD, vitals as above, generally well- appearing EYES: normal conjunctivae, no scleral icterus ENT: external ear and nose normal, MMM NECK: trachea midline, RESPIRATORY: clear to auscultation bilaterally, no crackles, rales or wheezes, normal respiratory effort CARDIOVASCULAR: regular rate and rhythm, S1 and 2 heard without murmurs, gallops or rubs, no JVD, no peripheral edema, GASTROINTESTINAL: soft, nontender, ND, no guarding MUSCULOSKELETAL: strength 5/5 throughout, head is normocephalic and atraumatic, SKIN: warm and dry, NEUROLOGIC: CN 2-12 grossly intact, no sensory deficit, normal cognition, normal speech, no tremor PSYCHIATRIC: alert cooperative and oriented to person, place and time. Results & Data Results & Data ([facility]) Vital Signs (Past 12 Hours) Vital Signs Temp Pulse Pulse Resp BP BP Pulse Ox 06/18/21 12:53 36.5 C 97 H 18 135/77 97 06/18/21 08:19 89 06/18/21 07:53 36.7 C 75 18 149/83 H 98 06/18/21 03:34 36.4 C L 74 16 121/75 97 06/18/21 01:55 76 Medications Administered Current Inpatient Medications Acetaminophen (Acetaminophen 325 Mg Tab) 650 mg PO Q6H PRN PRN Reason: Fever/pain Stop: 07/16/21 01:34 Alosetron HCl (Alosetron Hcl) 1 ea PO BID [facility] Stop: 07/17/21 08:59 Last Admin: 06/18/21 08:50 Dose: 1 ea Documented by: Ascorbic Acid (Ascorbic Acid 500 Mg Tab) 500 mg PO DAILY [facility] Stop: 07/17/21 08:59 Last Admin: 06/18/21 09:14 Dose: 500 mg Documented by: Budesonide (Budesonide Ec 3 Mg Cap) 9 mg PO DAILY [facility] Stop: 07/16/21 08:59 Last Admin: 06/18/21 09:15 Dose: 9 mg Documented by: Colestipol HCl (Colestipol Hcl 1 Gm Tab) 1 gm PO BID@1000,2200 [facility] Stop: 07/16/21 09:59 Last Admin: 06/18/21 10:29 Dose: 1 gm Documented by: Diphenoxylate HCl/Atropine (Diphenoxylate/Atropine 2.5/0.025mg Tab) 2 tab PO BID [facility] Stop: 07/16/21 20:59 Last Admin: 06/18/21 09:15 Dose: 2 tab Documented by: Furosemide (Furosemide 20 Mg Tab) 20 mg PO BID@0900,1500 [facility] Stop: 07/18/21 08:59 Last Admin: 06/18/21 09:16 Dose: 20 mg Documented by: Hydromorphone HCl (Hydromorphone Inj 0.5 Mg/0.5 Ml Syr) 0.25 mg IV Q6H PRN PRN Reason: Pain Stop: 06/30/21 15:28 Cefepime HCl 2,000 mg/ Syringe 20 mls @ 5 mls/min IV Q8H [facility]; Protocol Stop: 06/23/21 05:59 Last Admin: 06/18/21 06:17 Dose: 5 mls/min Documented by: Levothyroxine Sodium (Levothyroxine Sodium 75 Mcg Tablet) 75 mcg PO MoTuWeThFrSa@0630 [facility] Stop: 07/16/21 06:29 Last Admin: 06/18/21 06:17 Dose: 75 mcg Documented by: Loperamide HCl (Loperamide Hcl 2 Mg Cap) 2 mg PO BID [facility] Stop: 07/17/21 20:59 Last Admin: 06/18/21 09:17 Dose: 2 mg Documented by: Lorazepam (Lorazepam 2 Mg/1 Ml Vial) 0.25 mg IV Q4H PRN PRN Reason: Anxiety Stop: 07/15/21 22:05 Methylprednisolone (Methylprednisolone 4 Mg Tab) 4 mg PO BID [facility] Stop: 07/16/21 08:59 Last Admin: 06/18/21 09:17 Dose: 4 mg Documented by: Miscellaneous (Alosetron [Lotronex] 1 Mg Tablet ~ Order Awaiting Action) 1 ea N/A QS [facility] Stop: 07/17/21 00:00 Last Admin: 06/18/21 07:52 Dose: Not Given Documented by: Morphine Sulfate (Morphine Sulfate 4 Mg/Ml 1 Ml Carp\Vial) 4 mg IV Q4H PRN PRN Reason: Pain Stop: 06/29/21 22:03 Last Admin: 06/18/21 11:23 Dose: 4 mg Documented by: Multivitamins/Minerals (Calcium 600mg + Vit D 400 Iu Tab) 1 tab PO DAILY@1200 [facility] Stop: 07/17/21 11:59 Last Admin: 06/18/21 12:12 Dose: 1 tab Documented by: Bismuth Subsalicylate*Non- Form Patient's Own Med 1 ea PO BID [facility] Stop: 07/18/21 20:59 Oxycodone HCl (Oxycodone Hcl Ir 5 Mg Tab (Immediate Release)) 5 mg PO Q6H PRN PRN Reason: Pain Stop: 06/30/21 15:28 Simethicone (Simethicone 80 Mg Chew) 80 mg PO BID [facility] Stop: 07/17/21 20:59 Last Admin: 06/18/21 09:17 Dose: 80 mg Documented by: Sodium Chloride (Sodium Chloride 0.65% Na Soln 45 Ml ([place])) 1 sprays AMINATA TID PRN PRN Reason: Congestion Stop: 07/16/21 15:28 Vitamin D (Cholecalciferol 1,000 Units 25 Mcg Tab) 1,000 units PO DAILY [facility] Stop: 07/17/21 08:59 Last Admin: 06/18/21 09:15 Dose: 1,000 units Documented by: Zinc Sulfate (Zinc Sulfate 220 Mg Capsule) 220 mg PO DAILY@1200 [facility] Stop: 07/17/21 11:59 Last Admin: 06/18/21 12:12 Dose: 220 mg Documented by:
--- NOTE | 2021-06-18 14:31 | Orthopedic Progress Note ---
Date of Service June 18, 2021 Assessment & Plan (1) Cellulitis and abscess of right leg: Unfortunate she is having a lot of soreness in her leg. She is able to ambulate some on it. I checked the inpatient wound images that wound care took when they changed her dressing. She will need to continue with the IV antibiotics and the wound care. She can be weightbearing as tolerated. Earnestine Nash was seen and examined at bedside this morning. Unfortunate she is having a lot of soreness in her right leg. She was already seen by wound care and the dressing has been changed. Review of Systems All systems reviewed & are unremarkable except as noted in HPI & below. Physical Exam On physical examination of the right leg, I did not remove the wound care dressing. She has active motion of her toes. The surrounding cellulitis does not seem any worse than it was the day before. Results & Data Results & Data Laboratory Results . Diagnostic Findings . PG Care Time/CCT Total # of Minutes Spent Total Time Spent with Patient: Total time spent is greater than 50% in coordination of care (as documented) at patient's floor/unit and/or counseling patient: Coding Level of Care Code 95282 Post Operative Follow-Up Diagnoses Cellulitis and abscess of right leg L03.115; L02.415
[2021-06-18] MEDS ORDERED: ONDANSETRON INJ 2 MG/ML 2 ML VIAL IV PRN (15:15)
[2021-06-18] MEDS: [UNRECOGNIZED DRUG - REMARK] PO SCH (20:31)
[2021-06-18] MEDS ORDERED: BISMUTH SUBSALICYLATE 262 MG CHEW PO SCH (21:00)
[2021-06-19] MEDS: CEFEPIME 2,000 MG in SYRINGE 0 ML IV SCH ×2 (05:28→13:27)
[2021-06-19] MEDS: LEVOTHYROXINE SODIUM 75 MCG TABLET PO SCH (05:28)
[2021-06-19 07:11] LABS: Hematocrit (blood only) 37.9 % (37-47); Hemoglobin 11.6 g/dL (12.0-16.0); Mean Corpuscular Hemoglobin 27.8 pg (25-34); Mean Corpuscular Hgb Conc 30.6 g/dL (32-36); Mean Corpuscular Volume 90.7 fL (80-100); Mean Platelet Volume 9.6 fL (7.4-10.4); Nucleated RBC # (auto) 0.02 K/uL (0-0); Nucleated RBC % (auto) 0.2 %; Platelet Count 473 K/uL (130-400); RDW Coefficient of Variation 14.5 % (11.5-14.5); RDW Standard Deviation 47.8 fL (36.4-46.3); Red Blood Count 4.18 M/uL (4.2-5.4); White Blood Count 12.06 K/uL (4.8-10.8)
[2021-06-19] MEDS: ASCORBIC ACID 500 MG TAB PO SCH (08:14)
[2021-06-19] MEDS: [UNRECOGNIZED DRUG - OTHER] PO SCH (08:14)
[2021-06-19] MEDS: CHOLECALCIFEROL 1,000 UNITS 25 MCG TAB PO SCH (08:15)
[2021-06-19] MEDS: BUDESONIDE EC 3 MG CAP PO SCH (08:15)
[2021-06-19] MEDS: DIPHENOXYLATE/ATROPINE 2.5/0.025MG TAB PO SCH (08:15)
[2021-06-19] MEDS: LOPERAMIDE HCL 2 MG CAP PO SCH (08:16)
[2021-06-19] MEDS: [UNRECOGNIZED DRUG - REMARK] PO SCH (08:16)
[2021-06-19] MEDS: methylPREDNISolone 4 MG TAB PO SCH (08:16)
[2021-06-19] MEDS: FUROSEMIDE 20 MG TAB PO SCH ×2 (08:16→14:35)
[2021-06-19] MEDS: SIMETHICONE 80 MG CHEW PO SCH (08:17)
[2021-06-19] MEDS: COLESTIPOL HCL 1 GM TAB PO SCH (09:27)
[2021-06-19] MEDS ORDERED: VANCOMYCIN TROUGH ONE (11:30)
[2021-06-19] MEDS: CALCIUM 600MG + VIT D 400 IU TAB PO SCH (13:27)
[2021-06-19] MEDS: ZINC SULFATE 220 MG CAPSULE PO SCH (13:27)
[2021-06-19] MEDS ORDERED: WARFARIN SOD 2 MG TAB PO SCH (16:00)
--- NOTE | 2021-06-19 17:40 | Discharge Summary ---
Date of Service June 19, 2021 Admission HPI Per Admitting Provider History obtained from patient, family, and records. Medical history significant for hypertension, pulmonary hypertension as per records, hypothyroidism, vasculitis/seronegative polyarthritis/Sjogren's syndrome on chronic steroid Rx, IBS/collagenous colitis as per records, hypothyroidism, chronic venous insufficiency history DVT on Coumadin (09/2020), past tobacco abuse. Last confinement April 2021 for traumatic left leg wound/cellulitis. Wound CS group B strep. Patient discharged on Keflex course. LLE wound/hematoma improving as per outpatient [facility] [place] care visit last week. Patient developed a small wound/hematoma on the right lower leg (above the ankle) few weeks ago. Patient and attribute swelling to ABIs done at wound care office. Increased swelling noted since last week. Debridement done during last week's wound care visit. 3 days ago, patient noted worsening swelling and pain on the right leg. No fever, no chills, no chest pain, no S OB. Patient also complaining headache symptoms different from her usual migraine attacks. Patient seen at PCPs office 2 days ago. Clindamycin and doxycycline prescribed for RLE cellulitis. Patient told to increase Lasix. Advised to go to ER for worsening symptoms. Patient brought to the ER for worsening right leg swelling and pain. IV vancomycin given for sepsis. Medical Historyas above Surgical History : Laser brachioplasty, laparoscopic abdominal tumor removal, cataract surgeries Family History : Heart disease, kidney stones Personal/Social history : Past tobacco abuse, no EtOH intake, office work Principal Diagnosis cellulitis and abscess of right leg 2/2 pseudomonas s/p incision and drainage on 06/16 steroid dependence Discharge Exam CONSTITUTIONAL: WNWD, vitals as above, generally well-appearing EYES: normal conjunctivae, no scleral icterus ENT: external ear and nose normal, MMM NECK: trachea midline, RESPIRATORY: clear to auscultation bilaterally, no crackles, rales or wheezes, normal respiratory effort CARDIOVASCULAR: regular rate and rhythm, S1 and 2 heard without murmurs, gallops or rubs, no JVD, no peripheral edema, GASTROINTESTINAL: soft, nontender, ND, no guarding MUSCULOSKELETAL: strength 5/5 throughout, head is normocephalic and atraumatic, SKIN: warm and dry, NEUROLOGIC: CN 2-12 grossly intact, no sensory deficit, normal cognition, normal speech, no tremor PSYCHIATRIC: alert cooperative and oriented to person, place and time. Discharge Data Allergies Allergy/AdvReac Type Severity Reaction Status Date / Time amoxicillin [From Augmentin] AdvReac Intermediate Vomiting Verified 06/15/21 16:48 clavulanic acid AdvReac Intermediate Vomiting Verified 06/15/21 16:48 [From Augmentin] phytonadione (vitamin K1) AdvReac Intermediate chest/abd Verified 06/15/21 23:47 pain sulfamethoxazole AdvReac Intermediate NAUSEA/VOMI Verified 06/15/21 16:48 TING trimethoprim AdvReac Intermediate NAUSEA/VOMI Verified 06/15/21 16:48 TING cephalexin [From Keflex] AdvReac Mild Nausea Verified 06/15/21 16:48 tramadol AdvReac Vomiting Unverified 06/15/21 21:47 Consultations 06/15/21 20:41 ED Decision to Admit Stat 06/15/21 23:10 Consult Orthopedic Surgery Routine 06/18/21 08:45 Consult Infectious Diseases Routine Procedures Performed Operation Date: 06/16/21 10:30 Actual Procedures p Incision and Drainage Abscess of Right Leg(Right) - Vargas Riley, Ordered Studies 06/15/21 18:00 CT tib/fib RT w con Stat 06/15/21 21:45 CT head/brain wo con Urgent 06/16/21 08:00 CT chest diagnostic wo con Urgent Hospital Course (1) Cellulitis and abscess of right leg: s/p Incision and Drainage Abscess of Right Leg. Irrigation and debride ment and closure of a separate ulceration performed by Dr. Riley on 06/16/21 She was getting outpatient Clindamycin and doxycycline Placed on cefepime and vancomycin on admission. Currently on Cefepime, vanc stopped once pseudomonas evident in wound culture. WBC 16K on admission, improving (noted chronic steroids) Does not appears acutely infected. Blood cx no growth ID consult placed in light of this being a recurrent issue causing readmission, Multiple antibiotic allergies and High risk for complications with fragile wound/tissue. Recommended ciprofloxacin, wound care followup as outpatient. Headache CT head showed no acute intracranial abnormality This resolved. Chronic lower extremity edema Inflammatory polyarthritis and Sjogren's syndrome Follows with rheumatology as outpatient On chronic steroids Asked patient to discuss some options for steroid sparing agents and chronic edema is an issue and friable tissue among many other negative watermelon inspector side effects of cheronic steroids. History of deep venous thrombosis, on Coumadin. Episode of DVT 10/08 Pt has been getting therapy more than 6 months, will need to discuss with outpatient provider/hematology about discussing to stop anticoagulant once pt recovers and more active Hold coumadin for now to aid in wound healing, patient prefers this DO Cheko Richardson Hospitalist Total Time Total Time Spent Total Time Spent (In Minutes): 60 Discharge Plan Discharge Items Patient Disposition: Home - Self-Care Reason For Visit: SEPSIS Discharge Diagnosis: cellulitis and abscess of right leg 2/ pseudomonas s/p incision and drainage on 06/16 steroid dependence Condition on Discharge: Good Activity: Resume your previous activity Non-emergency contact: Primary Care Provider Call non-emergency contact if: you have any medication questions, your symptoms worsen, your pain is not controlled, your pain is worsening, your pain is unusual for you, your pain is concerning for you, you have a fever, your wound has increased redness, your wound has increased drainage and your wound pain has increased Follow-up/Referrals: Alexx Sepulveda DO [Primary Care Provider] - (Date & Time 06/26/2021 4:00 PM Provider Alexx Sepulveda DO Department Family Practice [facility] ) Hattie Bradshaw MD [Hospitalist] - (Date & Time 06/22/2021 2:45 PM Provider Hattie Bradshaw MD Department Hematology/Oncology [facility] ) Diet: Regular Addtl Attending Provider Instructions: Please take all medications as instructed on discharge list below. You are being given a course of ciprofloxacin to take for the next 10 days. After this, you should not need further antibiotics. Plesae follow-up with Dr. Riley from Orthopedics in 1-2 weeks for a post- operative check of the wound. Please follow-up with Dr. Sepulveda to discuss your hospital course and ensure you are doing well after returning home. Please establish care with Hematology, Dr. Bradshaw, regarding the need for long-term warfarin in the setting of an unprovoked blood clot last year. Please continue to hold warfarin until approved to restart by Dr. Sepulveda. Please follow-up with the wound clinic on Tuesday for your scheduled appointment and follow attached wound care discharge instructions until that time. Supplies are being provided to you at discharge today. It was a pleasure taking care of you! Please call if you have any questions or problems over the weekend. You can reach a [facility] Hospitalist on duty at [facility] 24 hours a day by calling [phone]. Take care of yourself. Winter Martino, DO [facility] Hospitalist Pending Studies at Discharge: No Stand-Alone Forms: [facility] Medications and DC Order Prescriptions: New ciprofloxacin HCl 500 mg Tablet 500 mg PO BID Qty: 20 RF: 0 oxycodone-acetaminophen [Percocet] 5-325 mg tablet 1 tab PO Q8H PRN (Reason: severe breakthrough pain) Qty: 10 RF: 0 Continued cholecalciferol (vitamin D3) 1,000 unit capsule 1,000 units PO DAILY RF: 0 diphenoxylate-atropine [Lomotil] 2.5-0.025 mg tablet 2 tab PO BID RF: 0 levothyroxine [Synthroid] 75 mcg tablet 75 mcg PO .COMPLEX Qty: 30 RF: 5 budesonide 9 mg tablet,delayed and ext.release 9 mg PO DAILY RF: 0 simethicone [Gas-X Extra Strength] 125 mg capsule 125 mg PO BID RF: 0 calcium carbonate-vitamin D3 600 mg-5 mcg (200 unit) tablet 1 tab PO DAILY RF: 0 vitamin A 10,000 unit Capsule 2,400 unit PO DAILY RF: 0 ascorbic acid (vitamin C) [Vitamin C] 500 mg Tablet 500 mg PO DAILY RF: 0 zinc 50 mg Tablet 50 mg PO DAILY RF: 0 alosetron [Lotronex] 1 mg tablet 1 mg PO BID RF: 0 furosemide 20 mg tablet 20 mg PO BID@0900,1500 RF: 0 methylprednisolone 4 mg tablet 4 mg PO BID RF: 0 cyclosporine [Restasis] 0.05 % Dropperette 1 drp OPB Q12H RF: 0 Saline Nasal Mist 0.65 % Aerosol,[place] 1 spray INTRANASAL TID PRN (Reason: Congestion) RF: 0 acetaminophen 500 mg Tablet 1,000 mg PO TID PRN (Reason: Pain) RF: 0 Align 4 mg Capsule 4 mg PO DAILY PRN (Reason: Prophylaxis) RF: 0 colestipol [Colestid] 1 gram Tablet 1 g PO BID RF: 0 loperamide [Imodium A-D] 2 mg Tablet 2 mg PO BID RF: 0 Prolia 60 mg/mL Syringe 60 mg SUBCUT .TWICE YEARLY RF: 0 bismuth subsalicylate 262 mg Tablet 1 tab PO BID RF: 0 Discontinued warfarin 1 mg tablet 1 mg PO 5XWK RF: 0 doxycycline hyclate 100 mg capsule 100 mg PO AMHS RF: 0 clindamycin HCl 300 mg capsule 300 mg PO TID RF: 0 warfarin 1 mg tablet 2 mg PO 2XWK RF: 0 Discharge Orders: Discharge Order (Routine); Ordered 06/19/21 Ordered By: Winter Martino Admission Data Admit Date/Time: 06/15/21 23:06 Attending Provider: Winter Martino Admit Provider: Anatoliy Bill Primary Care Provider: Alexx Sepulveda Other Providers: Anatoliy Bill ; Jesus Dempsey ; Sanaz Sparks ; Adonis Juarez ; Clare Saha ; Valerio Mcbride ; Gracie Pandey ; Ele White ; Elver Connell ; Phong Guerra ; Vargas Stapleton ; Vargas Riley Carlos M. ; Terrell Garg ; Chung Connell I. ; Darien Campbell II ; Aura Rojo ; Pavan Cerrato ; Jorge Luis Soto Other Interventions: Discharge Summary Assessment (RN) Last Done: 06/19/21 17:49
[2021-06-19] MEDS ORDERED: CIPROFLOXACIN 500 MG TAB PO SCH (21:00)
== END 2021-06-19 18:28 | disposition home or self-care (01) | DRG 854 ==
LOC: ED 16:23 → SUATTDRO 23:06 → 2N 23:06
DX: L02.415 Cutaneous abscess of right lower limb; E09.65 Drug or chemical induced diabetes mellitus with hyperglycemia; Z88.1 Allergy status to other antibiotic agents; Z88.2 Allergy status to sulfonamides; Z88.5 Allergy status to narcotic agent; A41.52 Sepsis due to Pseudomonas; E03.9 Hypothyroidism, unspecified; D62 Acute posthemorrhagic anemia; M85.9 Disorder of bone density and structure, unspecified; I27.20 Pulmonary hypertension, unspecified; M35.00 Sjogren syndrome, unspecified; Z88.0 Allergy status to penicillin; L03.115 Cellulitis of right lower limb; Z86.718 Personal history of other venous thrombosis and embolism; Z87.891 Personal history of nicotine dependence; Z98.42 Cataract extraction status, left eye; Z79.01 Long term (current) use of anticoagulants; Z98.41 Cataract extraction status, right eye; I10 Essential (primary) hypertension; M06.4 Inflammatory polyarthropathy; Z79.890 Hormone replacement therapy; Z79.52 Long term (current) use of systemic steroids; G43.909 Migraine, unspecified, not intractable, without status migrainosus; D68.318 Other hemorrhagic disorder due to intrinsic circulating anticoagulants, antibodies, or inhibitors